=== PATIENT | female | born 1940 | race Caucasian/White ===

== ENCOUNTER → 2021-10-03 14:05 | Outpatient (BNVA) | payer MEDICARE, OTHER, SELFPAY | PROVIDERS: PCP Internal Medicine; Visit Provider Hospitalist | DX: Z01.811 Encounter for preprocedural respiratory examination (principal); M35.00 Sjogren syndrome, unspecified; R91.8 Other nonspecific abnormal finding of lung field; J98.11 Atelectasis; I25.10 Atherosclerotic heart disease of native coronary artery without angina pectoris; I38 Endocarditis, valve unspecified | CPT/HCPCS: 94618; 99202 ==

== ENCOUNTER 2021-10-15 09:53 | Outpatient (REF) | payer MEDICARE, OTHER, SELFPAY ==
--- NOTE | 2021-10-15 | PFT_ITS ---
FLOWS: FEV1 81% of predicted at 1.63 L. FVC 73% of predicted at 1.97 L. FEV1 to FVC ratio of 0.83. No bronchodilator response except in small to medium airways. LUNG VOLUMES: Total lung capacity 81% of predicted at 4.23 L. Residual volume 85% of predicted at 2.12 L. Slow vital capacity 77% of predicted at 2.12 L. Expiratory reserve volume 153% of predicted at 0.83 L. Diffusion capacity is moderately decreased. IMPRESSION: No obstructive or restrictive ventilatory defect. No bronchodilator response except in small to medium airways. Isolated diffusion capacity suggests underlying pulmonary parenchymal disease. Clinical correlation is advised. Jerman Porras MD AP/MODL / [id number]
== END 2021-10-15 09:54 | disposition home or self-care (01) ==
LOC: HO.RESP 09:53
PROVIDERS: PCP Internal Medicine; Visit Provider Hospitalist
DX: Z13.89 Encounter for screening for other disorder (principal); R06.00 Dyspnea, unspecified
CPT/HCPCS: 94060; 94727; 94729

== ENCOUNTER → 2022-02-27 14:02 | Outpatient (BNVA) | payer MEDICARE, OTHER, SELFPAY | PROVIDERS: PCP Internal Medicine; Visit Provider Hospitalist | DX: R91.8 Other nonspecific abnormal finding of lung field (principal); J98.11 Atelectasis; I38 Endocarditis, valve unspecified; I25.10 Atherosclerotic heart disease of native coronary artery without angina pectoris; M35.00 Sjogren syndrome, unspecified | CPT/HCPCS: 99212 ==

== ENCOUNTER 2022-03-24 13:50 | Inpatient (IN) | payer MEDICARE, OTHER, SELFPAY ==
--- NOTE | ~2022-03-24 | XR_ITS ---
EXAMINATION: XR CHEST CLINICAL INFORMATION: Chest pain and shortness of breath COMPARISON: None TECHNIQUE: 2 views of the chest were obtained. FINDINGS: The cardiac silhouette does not appear enlarged. There is a coronary artery stent. There is an aortic valve stent graft. Hilar and mediastinal contours are unremarkable. The lungs are clear. There is no pleural effusion or pneumothorax. There are degenerative changes of the spine. There is a loop recorder in the left anterior chest wall. XR/XR chest 2V IMPRESSION: No evidence for acute disease in the chest.
--- NOTE | ~2022-03-24 | CT_ITS ---
EXAMINATION: CT ANGIOGRAM OF THE CHEST WITH AND WITHOUT CONTRAST (CT PULMONARY ANGIOGRAM FOR PE) CLINICAL INFORMATION: Reason for Exam cp radiating to back ? PE or ? dissection COMPARISON: Chest x-ray March 2022 TECHNIQUE: Prior to contrast administration, noncontrast localization images were obtained. Subsequently, multidetector volumetric imaging was performed from the thoracic inlet to below the diaphragms following the administration of 65 mL Omnipaque 350 intravenous contrast. No contrast reaction reported Sagittal, coronal, and MIP oblique sagittal reformatted images were obtained on the CT workstation, uploaded to PACS, and reviewed. This CT examination was performed using dose optimization techniques as appropriate, variously including the following: *Automated exposure control *Adjustment of mA and/or kV according to patient size (this includes techniques or standardized protocols for targeted exams where dose is matched to indication/reason for exam; i.e. extremities or head) *Use of iterative reconstruction technique Total exam dose-length product 223 mGy-cm FINDINGS: QUALITY OF STUDY/CONTRAST BOLUS: Satisfactory. PULMONARY ARTERIES: No central or segmental pulmonary emboli. THORACIC AORTA Prominent arterial calcification noted throughout the aorta and branch vessels including the coronary arteries. LUNG: Minimal opacification of the right base likely atelectasis. There is some mosaic attenuation at the bases likely due to scattered areas of air trapping or small vessel disease. No prominent focal consolidation. PLEURA: No pleural effusion or pneumothorax. MEDIASTINUM: Aortic stent noted. Mitral annular calcification is noted.. All No pericardial effusion. No hilar or mediastinal lymphadenopathy. No evidence of septal bowing or right heart strain. CORONARY ARTERY CALCIFICATION: None visualized on this study. CHEST WALL/AXILLA: No axillary or internal mammary lymphadenopathy. OSSEOUS STRUCTURES: Spondylosis of the dorsal spine. UPPER ABDOMEN: Surgical clips noted in the gallbladder fossa No reflux of contrast into the hepatic veins to suggest elevated right heart pressures. CT/CT angio chest PE protocol IMPRESSION: No evidence for pulmonary embolism or dissection. Minimal atelectasis at the right base. Mosaic attenuation the lower lungs likely reflects air-trapping and perhaps some small vessel disease. No focal prominent area of consolidation Calcific atherosclerotic changes noted throughout. Postoperative changes with valve replacement mitral annular calcification VTE: negative
[2022-03-24 14:21] VITALS: BP 160/69; PULSE 90; RESP 20; TEMP 36.7; O2SAT 95; BMI 21.9
--- NOTE | 2022-03-24 14:21 | ED.CHESTPAIN ---
HPI - Chest Pain General Chief Complaint: Chest Pain <STEVE Birch - Last Filed: 03/24/22 14:30> Stated Complaint: chest pain <STEVE Birch - Last Filed: 03/24/22 14:30> Time Seen by Provider: 03/24/22 16:31 <STEVE Birch - Last Filed: 03/24/22 14:30> Source: patient <STEVE Vann - Last Filed: 03/24/22 20:37> Mode of arrival: ambulatory <STEVE Vann - Last Filed: 03/24/22 20:37> Limitations: no limitations <STEVE Vann - Last Filed: 03/24/22 20:37> History of Present Illness HPI narrative: 81-year-old female history of aortic stenosis s/p TAVR in Jan 2022, CAD s/p stent to RCA, mitral valve regurgitation, Sjogren's disease, essential tremor, hx exudative pleural effusion s/p thoracentesis 5 years ago presenting to the emergency department with complaints of substernal chest pain at time radiating to her back and neck worsening over the past week. Also vague complaints of associated shortness of breath with this chest pain. Patient with a complex cardiac history. No history of PE or DVT, not anticoagulated. Tells me she just has not been feeling herself although over the past week and would like to be evaluated. Denies sick contacts. She does tell me she thinks that she has the flu however unsure why. Denies nausea, vomiting abdominal pain, headache, vision changes, dizziness, weakness. <STEVE Vann - Last Filed: 03/24/22 20:37> Related Data Home Medications: Home Medications Medication Instructions Recorded Confirmed aspirin 81 mg tablet,delayed 81 mg PO DAILY 10/03/21 03/24/22 release wzklud-rljkxhzj-fhwkozy 2 cap PO TIDWM 10/03/21 03/24/22 36,000-114,000-180,000 unit capsule,delay rel (Creon) thyroid (pork) 30 mg tablet 60 mg PO BID 10/03/21 03/24/22 ([place] Thyroid) amlodipine 5 mg tablet 5 mg PO DAILY 02/27/22 03/24/22 clopidogrel 75 mg tablet 75 mg PO DAILY 02/27/22 03/24/22 furosemide 20 mg tablet 60 mg PO DAILY 02/27/22 03/24/22 spironolactone 25 mg tablet 25 mg PO DAILY 02/27/22 03/24/22 zjglfl-uigypdcx-lpxenke 2 cap PO BID PRN SNACKS 03/24/22 03/24/22 36,000-114,000-180,000 unit capsule,delay rel (Creon) Previous Rx's Medication Instructions Recorded levalbuterol tartrate 45 1 puff PO Q4H PRN shortness of 02/27/22 mcg/actuation aerosol inhaler breath or wheezing 30 days #15 (Xopenex HFA) grams <STEVE Birch - Last Filed: 03/24/22 14:30> Allergies/Adverse Reactions: Allergies Allergy/AdvReac Type Severity Reaction Status Date / Time epinephrine [Epinephrine] AdvReac Mild VERY SHAKY Verified 03/24/22 17:12 <STEVE Birch - Last Filed: 03/24/22 14:30> Review of Systems Review of Systems: Constitutional : No Weight loss, No Fever, No Chills, No Fatigue, No Malaise ENT/Mouth : No sore throat, No Rhinorrhea Eyes: No Eye Pain, No Swelling, No Redness Cardiovascular : + Chest Pain, + SOB, + Dyspnea on Exertion, No Orthopnea, No Edema, No Palpitations Respiratory : No Cough, No Sputum, No Wheezing Gastrointestinal : No Nausea, No Vomiting, No Diarrhea, No Constipation, No abdominal Pain, No Hematochezia, No Melena Genitourinary : No Dysuria, No Urinary Frequency, No Hematuria, Musculoskeletal : No joint pain, No Myalgias, No Joint Swelling Skin : No Skin Lesions, No rash Neuro : No Weakness, No Numbness, No Dizziness, No Headache Psych : No Anxiety/Panic, No Depression All other systems reviewed and are negative <STEVE Vann Last Filed: 03/24/22 20:37> Yes all other systems are reviewed and are negative <STEVE Vann Last Filed: 03/24/22 20:37> [facility] Past Medical History Attestation statement: The following information was validated with the patient. <STEVE Vann - Last Filed: 03/24/22 20:37> Source: old records reviewed and nursing notes reviewed <STEVE Vann - Last Filed: 03/24/22 20:37> Medical History: Medical History Atelectasis CAD (coronary artery disease) Pleural effusion Pulmonary nodules Sjogren's disease Valvular heart disease <STEVE Birch - Last Filed: 03/24/22 14:30> Social History Social History: Social History Alcohol intake: current Alcohol intake frequency: holidays/special occasions only Patient Tobacco Use Status: Never used Tobacco Smoked in Last 30 Days: No Use of substances other than those prescribed or required for medical reasons: No Advance Directives: Yes Advance Directives on File: No <STEVE Birch - Last Filed: 03/24/22 14:30> Physical Exam Vital Signs: Vital Signs: Last Vital Signs Temp 98.0 F 03/24/22 14:21 Pulse 99 03/24/22 18:55 Resp 18 03/24/22 18:55 BP 143/58 H 03/24/22 18:55 Pulse Ox 95 03/24/22 18:55 O2 Del Method 03/24/22 18:55 BMI result Body Mass Index 21.9 <STEVE Birch - Last Filed: 03/24/22 14:30> Vital Signs: Last Vital Signs Temp 98.0 F 03/24/22 14:21 Pulse 99 03/24/22 18:55 Resp 18 03/24/22 18:55 BP 143/58 H 03/24/22 18:55 Pulse Ox 95 03/24/22 18:55 O2 Del Method 03/24/22 18:55 BMI result Body Mass Index 21.9 Vital signs stable <STEVE Vann - Last Filed: 03/24/22 20:37> Appearance: Alert.? Oriented X3.? No acute distress.? Head: Normocephalic, atraumatic, no step-offs or deformities Eyes: Pupils equal, round and reactive to light.? Neck: Normal inspection.? Neck supple.? CVS: Normal heart rate and rhythm.? Pulses normal.? Respiratory: No respiratory distress.? Breath sounds normal.? Abdomen: Soft and nontender.? Skin: Skin warm and dry.? Normal skin color.? Normal skin turgor.? Extremities: No lower extremity edema.? No calf ttp, negative larisa bl. 5/5 strength to bilateral upper and lower extremities Neuro: Oriented X 3.? No motor deficit.? No sensory deficit. CN 2-12 intact <STEVE Vann - Last Filed: 03/24/22 20:37> Course Course Course Narrative: RME - 81 yo female with history of aortic stenosis s/p TAVR in Jan 2022, CAD s/p stent to RCA, mitral valve regurgitation, Sjogren's disease, essential tremor, hx exudative pleural effusion s/p thoracentesis 5 years ago who presents to the ER with substernal chest pain that started when she woke up, got acutely worse at lunch time. Radiates up to neck, shoulders and back. Worse with exertion, PALACIO + SOB. Started having fatigue and body aches last night. To go for EKG now, CXR, labs, concern for possible ACS. <STEVE Birch - Last Filed: 03/24/22 14:30> Reevaluation(s) Reevaluation #1: Patient with slight leukocytosis 12.8, I do not suspect infection. Chemistry with no acute electrolyte abnormalities that require intervention. Patient's BNP is noted to be markedly elevated concerning for possible CHF however on exam patient does not appear to be in acute fluid overload state imaging is not showing signs of CHF. Patient's troponin also elevated 74.4 thus raising suspicion for possible ACS repeat troponin will be obtained will give 325 of enteric-coated aspirin as well as morphine. Will hold on nitrates at this time. EKG showing normal sinus rhythm with left axis deviation and left ventricular hypertrophy with repolarization abnormality there slight changes noted in the septal leads that could be concerning for septal infarct will wait for 2nd troponin. Patient hemodynamically stable at this time. I did add on a D-dimer to patient's labs to ensure this is not a PE. Viral panel pending. <STEVE Vann - Last Filed: 03/24/22 20:37> Time: 16:57 <STEVE Vann - Last Filed: 03/24/22 20:37> Reevaluation #2: Chest CT with no evidence of PE or dissection. Minimal atelectasis of the lung base. Mosaic attenuation of the lower lungs likely reflecting air trapping and perhaps some small vessel disease. Calcific arthrosclerotic changes throughout. VT negative. Second troponin elevated at 91.6 however not meeting delta criteria. Will repeat a 3rd troponin. Will keep patient for observation. <STEVE Vann - Last Filed: 03/24/22 20:37> Time: 20:02 <STEVE Vann - Last Filed: 03/24/22 20:37> Reevaluation #3: Will admit patient to hospitalist for further intervention and treatment. <STEVE Vann - Last Filed: 03/24/22 20:37> Time: 20:35 <STEVE Vann - Last Filed: 03/24/22 20:37> Medications Administered Discontinued Medications Generic Name Dose Route Start Last Admin Trade Name Freq PRN Reason Stop Dose Admin Aspirin 325 mg 03/24/22 16:54 03/24/22 17:13 Aspirin Enteric Coated 325 Mg Tablet.Dr LEYVA 03/24/22 16:55 325 mg ONCE ONE Administration Iohexol 100 ml 03/24/22 17:44 03/24/22 17:44 Iohexol 350 Mg/Ml 100 Ml Infus..Btl IV 03/24/22 17:45 65 ml ONCE ONE Administration Morphine Sulfate 4 mg 03/24/22 16:54 03/24/22 17:12 Morphine Sulfate 4 Mg/Ml Cartridge IVPUSH 03/24/22 16:55 Not Given ONCE ONE Protocol <STEVE Birch - Last Filed: 03/24/22 14:30> Medications Administered Discontinued Medications Generic Name Dose Route Start Last Admin Trade Name Freq PRN Reason Stop Dose Admin Aspirin 325 mg 03/24/22 16:54 03/24/22 17:13 Aspirin Enteric Coated 325 Mg Tablet.Dr LEYVA 03/24/22 16:55 325 mg ONCE ONE Administration Iohexol 100 ml 03/24/22 17:44 03/24/22 17:44 Iohexol 350 Mg/Ml 100 Ml Infus..Btl IV 03/24/22 17:45 65 ml ONCE ONE Administration Morphine Sulfate 4 mg 03/24/22 16:54 03/24/22 17:12 Morphine Sulfate 4 Mg/Ml Cartridge IVPUSH 03/24/22 16:55 Not Given ONCE ONE Protocol <STEVE Vann - Last Filed: 03/24/22 20:37> Medical Decision Making Medical Decision Making [facility] Narrative: 1630 81-year-old female presents with chest pain, shortness of breath, body aches and pains x1 week Physical exam benign other than mitral valve regurg however this is normal for patient Concerns for possible viral syndrome versus PE versus ACS. Other differentials include CHF, pneumonia, pleural effusions. No signs of acute respiratory distress on exam Plan at this time basic labs, imaging, D-dimer, troponin, BNP will obtain viral test. <STEVE Vann - Last Filed: 03/24/22 20:37> Differential Diagnosis Differential Diagnoses: The differential diagnosis associated with the presentation includes <STEVE Vann - Last Filed: 03/24/22 20:37> Concerns for possible viral syndrome versus PE versus ACS. Other differentials include CHF, pneumonia, pleural effusions. No signs of acute respiratory distress on exam <STEVE Vann - Last Filed: 03/24/22 20:37> Admission/Observation Consideration of admission/observation: Escalation of care including admission/observation considered <STEVE Vann Last Filed: 03/24/22 20:37> Lab Data [facility] Lab Attestation statement: I reviewed the patient's lab results. <STEVE Vann - Last Filed: 03/24/22 20:37> Result Diagrams: 03/24/22 15:53 03/24/22 15:54 <STEVE Birhc - Last Filed: 03/24/22 14:30> Labs: Lab Results 03/24/22 03/24/22 03/24/22 Range/Units 15:53 15:54 15:54 WBC 12.8 H (4.8-10.8) X10*3/uL RBC 4.56 (4.20-5.50) X10*6/uL Hgb 13.3 (12.0-16.0) g/dl Hct 39.3 (37.0-47.0) % MCV 86.2 (80.0-98.0) fL MCH 29.2 (27.0-33.0) pg MCHC 33.8 (31.0-35.0) g/dl RDW 13.2 (11.0-16.0) % Plt Count 268 (160-400) X10*3/uL MPV 10.2 (9.4-12.3) fL Immature Gran % (Auto) 0.5 H (0.0-0.4) % Neut % (Auto) 79.9 H (45-73) % Lymph % (Auto) 8.5 L (20-40) % [place] % (Auto) 8.6 (2-11) % Eos % (Auto) 2.0 (0-4) % Baso % (Auto) 0.5 (0-2) % Lymph # (Auto) 1.1 L (1.2-4.9) X10*3/uL [place] # (Auto) 1.1 (0.1-1.2) X10*3/uL Eos # (Auto) 0.3 (0.0-0.4) X10*3/uL Baso # (Auto) 0.1 (0.0-0.2) X10*3/uL Abs Immat Gran (auto) 0.07 H (0.00-0.03) X10*3/uL Absolute Neuts (auto) 10.2 H (2.0-8.3) x10*3/uL Absolute Nucleated RBC 0.000 (0.0-0.012) X10*3/uL Nucleated RBC % (auto) 0.0 (0.0-0.2) /100WBC PT (10.0-13.1) SEC INR (0.9-1.1) APTT (26.0-36.4) SEC D-Dimer High Sensitivty NG/ML Sodium 137 (135-145) mmol/L Potassium 4.7 (3.3-5.1) mmol/L Chloride 98 (96-108) mmol/L Carbon Dioxide 27 (22-29) mmol/L Anion Gap 17 (12-20) BUN 31 H (9-16) mg/dL Creatinine 1.24 (0.5-1.4) mg/dL Estim Creat Clear Calc 30.7 Estimated GFR 42 Random Glucose 137 H (60-115) mg/dL Calcium 9.9 (8.4-10.2) mg/dL Magnesium 2.0 (1.6-2.6) mg/dL Total Bilirubin 0.7 (0.0-1.0) mg/dL Direct Bilirubin 0.2 (0.0-0.5) mg/dL AST 18 (5-31) U/L ALT 9 (0-31) U/L Alkaline Phosphatase 106 (39-117) U/L Troponin I High Sens 74.4 H* (<3.5-17.0) ng/L B-Natriuretic Peptide (<100) pg/mL Total Protein 7.3 (6.5-8.0) g/dL Albumin 4.3 (3.5-5.0) g/dL COVID-19 (BILL) (Negative) COVID-19 Clin Com Influenza Type A (MICHELE) (Negative) Influenza Type B (MICHELE) (Negative) Influenza A & B Note 03/24/22 03/24/22 03/24/22 Range/Units 15:54 15:54 15:54 WBC (4.8-10.8) X10*3/uL RBC (4.20-5.50) X10*6/uL Hgb (12.0-16.0) g/dl Hct (37.0-47.0) % MCV (80.0-98.0) fL MCH (27.0-33.0) pg MCHC (31.0-35.0) g/dl RDW (11.0-16.0) % Plt Count (160-400) X10*3/uL MPV (9.4-12.3) fL Immature Gran % (Auto) (0.0-0.4) % Neut % (Auto) (45-73) % Lymph % (Auto) (20-40) % [place] % (Auto) (2-11) % Eos % (Auto) (0-4) % Baso % (Auto) (0-2) % Lymph # (Auto) (1.2-4.9) X10*3/uL [place] # (Auto) (0.1-1.2) X10*3/uL Eos # (Auto) (0.0-0.4) X10*3/uL Baso # (Auto) (0.0-0.2) X10*3/uL Abs Immat Gran (auto) (0.00-0.03) X10*3/uL Absolute Neuts (auto) (2.0-8.3) x10*3/uL Absolute Nucleated RBC (0.0-0.012) X10*3/uL Nucleated RBC % (auto) (0.0-0.2) /100WBC PT 12.1 (10.0-13.1) SEC INR 1.1 (0.9-1.1) APTT 36.0 (26.0-36.4) SEC D-Dimer High Sensitivty 730 NG/ML Sodium (135-145) mmol/L Potassium (3.3-5.1) mmol/L Chloride (96-108) mmol/L Carbon Dioxide (22-29) mmol/L Anion Gap (12-20) BUN (9-16) mg/dL Creatinine (0.5-1.4) mg/dL Estim Creat Clear Calc Estimated GFR Random Glucose (60-115) mg/dL Calcium (8.4-10.2) mg/dL Magnesium (1.6-2.6) mg/dL Total Bilirubin (0.0-1.0) mg/dL Direct Bilirubin (0.0-0.5) mg/dL AST (5-31) U/L ALT (0-31) U/L Alkaline Phosphatase (39-117) U/L Troponin I High Sens (<3.5-17.0) ng/L B-Natriuretic Peptide 942 H (<100) pg/mL Total Protein (6.5-8.0) g/dL Albumin (3.5-5.0) g/dL COVID-19 (BILL) Negative (Negative) COVID-19 Clin Com See Note Influenza Type A (MICHEEL) (Negative) Influenza Type B (MICHELE) (Negative) Influenza A & B Note 03/24/22 03/24/22 Range/Units 16:49 19:06 WBC (4.8-10.8) X10*3/uL RBC (4.20-5.50) X10*6/uL Hgb (12.0-16.0) g/dl Hct (37.0-47.0) % MCV (80.0-98.0) fL MCH (27.0-33.0) pg MCHC (31.0-35.0) g/dl RDW (11.0-16.0) % Plt Count (160-400) X10*3/uL MPV (9.4-12.3) fL Immature Gran % (Auto) (0.0-0.4) % Neut % (Auto) (45-73) % Lymph % (Auto) (20-40) % [place] % (Auto) (2-11) % Eos % (Auto) (0-4) % Baso % (Auto) (0-2) % Lymph # (Auto) (1.2-4.9) X10*3/uL [place] # (Auto) (0.1-1.2) X10*3/uL Eos # (Auto) (0.0-0.4) X10*3/uL Baso # (Auto) (0.0-0.2) X10*3/uL Abs Immat Gran (auto) (0.00-0.03) X10*3/uL Absolute Neuts (auto) (2.0-8.3) x10*3/uL Absolute Nucleated RBC (0.0-0.012) X10*3/uL Nucleated RBC % (auto) (0.0-0.2) /100WBC PT (10.0-13.1) SEC INR (0.9-1.1) APTT (26.0-36.4) SEC D-Dimer High Sensitivty NG/ML Sodium (135-145) mmol/L Potassium (3.3-5.1) mmol/L Chloride (96-108) mmol/L Carbon Dioxide (22-29) mmol/L Anion Gap (12-20) BUN (9-16) mg/dL Creatinine (0.5-1.4) mg/dL Estim Creat Clear Calc Estimated GFR Random Glucose (60-115) mg/dL Calcium (8.4-10.2) mg/dL Magnesium (1.6-2.6) mg/dL Total Bilirubin (0.0-1.0) mg/dL Direct Bilirubin (0.0-0.5) mg/dL AST (5-31) U/L ALT (0-31) U/L Alkaline Phosphatase (39-117) U/L Troponin I High Sens 91.6 H* (<3.5-17.0) ng/L B-Natriuretic Peptide (<100) pg/mL Total Protein (6.5-8.0) g/dL Albumin (3.5-5.0) g/dL COVID-19 (BILL) (Negative) COVID-19 Clin Com Influenza Type A (MICHELE) Negative (Negative) Influenza Type B (MICHELE) Negative (Negative) Influenza A & B Note See Note <STEVE Birch - Last Filed: 03/24/22 14:30> Lab Results 03/24/22 03/24/22 03/24/22 Range/Units 15:53 15:54 15:54 WBC 12.8 H (4.8-10.8) X10*3/uL RBC 4.56 (4.20-5.50) X10*6/uL Hgb 13.3 (12.0-16.0) g/dl Hct 39.3 (37.0-47.0) % MCV 86.2 (80.0-98.0) fL MCH 29.2 (27.0-33.0) pg MCHC 33.8 (31.0-35.0) g/dl RDW 13.2 (11.0-16.0) % Plt Count 268 (160-400) X10*3/uL MPV 10.2 (9.4-12.3) fL Immature Gran % (Auto) 0.5 H (0.0-0.4) % Neut % (Auto) 79.9 H (45-73) % Lymph % (Auto) 8.5 L (20-40) % [place] % (Auto) 8.6 (2-11) % Eos % (Auto) 2.0 (0-4) % Baso % (Auto) 0.5 (0-2) % Lymph # (Auto) 1.1 L (1.2-4.9) X10*3/uL [place] # (Auto) 1.1 (0.1-1.2) X10*3/uL Eos # (Auto) 0.3 (0.0-0.4) X10*3/uL Baso # (Auto) 0.1 (0.0-0.2) X10*3/uL Abs Immat Gran (auto) 0.07 H (0.00-0.03) X10*3/uL Absolute Neuts (auto) 10.2 H (2.0-8.3) x10*3/uL Absolute Nucleated RBC 0.000 (0.0-0.012) X10*3/uL Nucleated RBC % (auto) 0.0 (0.0-0.2) /100WBC PT (10.0-13.1) SEC INR (0.9-1.1) APTT (26.0-36.4) SEC D-Dimer High Sensitivty NG/ML Sodium 137 (135-145) mmol/L Potassium 4.7 (3.3-5.1) mmol/L Chloride 98 (96-108) mmol/L Carbon Dioxide 27 (22-29) mmol/L Anion Gap 17 (12-20) BUN 31 H (9-16) mg/dL Creatinine 1.24 (0.5-1.4) mg/dL Estim Creat Clear Calc 30.7 Estimated GFR 42 Random Glucose 137 H (60-115) mg/dL Calcium 9.9 (8.4-10.2) mg/dL Magnesium 2.0 (1.6-2.6) mg/dL Total Bilirubin 0.7 (0.0-1.0) mg/dL Direct Bilirubin 0.2 (0.0-0.5) mg/dL AST 18 (5-31) U/L ALT 9 (0-31) U/L Alkaline Phosphatase 106 (39-117) U/L Troponin I High Sens 74.4 H* (<3.5-17.0) ng/L B-Natriuretic Peptide (<100) pg/mL Total Protein 7.3 (6.5-8.0) g/dL Albumin 4.3 (3.5-5.0) g/dL COVID-19 (BILL) (Negative) COVID-19 Clin Com Influenza Type A (MICHELE) (Negative) Influenza Type B (MICHELE) (Negative) Influenza A & B Note 03/24/22 03/24/22 03/24/22 Range/Units 15:54 15:54 15:54 WBC (4.8-10.8) X10*3/uL RBC (4.20-5.50) X10*6/uL Hgb (12.0-16.0) g/dl Hct (37.0-47.0) % MCV (80.0-98.0) fL MCH (27.0-33.0) pg MCHC (31.0-35.0) g/dl RDW (11.0-16.0) % Plt Count (160-400) X10*3/uL MPV (9.4-12.3) fL Immature Gran % (Auto) (0.0-0.4) % Neut % (Auto) (45-73) % Lymph % (Auto) (20-40) % [place] % (Auto) (2-11) % Eos % (Auto) (0-4) % Baso % (Auto) (0-2) % Lymph # (Auto) (1.2-4.9) X10*3/uL [place] # (Auto) (0.1-1.2) X10*3/uL Eos # (Auto) (0.0-0.4) X10*3/uL Baso # (Auto) (0.0-0.2) X10*3/uL Abs Immat Gran (auto) (0.00-0.03) X10*3/uL Absolute Neuts (auto) (2.0-8.3) x10*3/uL Absolute Nucleated RBC (0.0-0.012) X10*3/uL Nucleated RBC % (auto) (0.0-0.2) /100WBC PT 12.1 (10.0-13.1) SEC INR 1.1 (0.9-1.1) APTT 36.0 (26.0-36.4) SEC D-Dimer High Sensitivty 730 NG/ML Sodium (135-145) mmol/L Potassium (3.3-5.1) mmol/L Chloride (96-108) mmol/L Carbon Dioxide (22-29) mmol/L Anion Gap (12-20) BUN (9-16) mg/dL Creatinine (0.5-1.4) mg/dL Estim Creat Clear Calc Estimated GFR Random Glucose (60-115) mg/dL Calcium (8.4-10.2) mg/dL Magnesium (1.6-2.6) mg/dL Total Bilirubin (0.0-1.0) mg/dL Direct Bilirubin (0.0-0.5) mg/dL AST (5-31) U/L ALT (0-31) U/L Alkaline Phosphatase (39-117) U/L Troponin I High Sens (<3.5-17.0) ng/L B-Natriuretic Peptide 942 H (<100) pg/mL Total Protein (6.5-8.0) g/dL Albumin (3.5-5.0) g/dL COVID-19 (BILL) Negative (Negative) COVID-19 Clin Com See Note Influenza Type A (MICHELE) (Negative) Influenza Type B (MICHELE) (Negative) Influenza A & B Note 03/24/22 03/24/22 Range/Units 16:49 19:06 WBC (4.8-10.8) X10*3/uL RBC (4.20-5.50) X10*6/uL Hgb (12.0-16.0) g/dl Hct (37.0-47.0) % MCV (80.0-98.0) fL MCH (27.0-33.0) pg MCHC (31.0-35.0) g/dl RDW (11.0-16.0) % Plt Count (160-400) X10*3/uL MPV (9.4-12.3) fL Immature Gran % (Auto) (0.0-0.4) % Neut % (Auto) (45-73) % Lymph % (Auto) (20-40) % [place] % (Auto) (2-11) % Eos % (Auto) (0-4) % Baso % (Auto) (0-2) % Lymph # (Auto) (1.2-4.9) X10*3/uL [place] # (Auto) (0.1-1.2) X10*3/uL Eos # (Auto) (0.0-0.4) X10*3/uL Baso # (Auto) (0.0-0.2) X10*3/uL Abs Immat Gran (auto) (0.00-0.03) X10*3/uL Absolute Neuts (auto) (2.0-8.3) x10*3/uL Absolute Nucleated RBC (0.0-0.012) X10*3/uL Nucleated RBC % (auto) (0.0-0.2) /100WBC PT (10.0-13.1) SEC INR (0.9-1.1) APTT (26.0-36.4) SEC D-Dimer High Sensitivty NG/ML Sodium (135-145) mmol/L Potassium (3.3-5.1) mmol/L Chloride (96-108) mmol/L Carbon Dioxide (22-29) mmol/L Anion Gap (12-20) BUN (9-16) mg/dL Creatinine (0.5-1.4) mg/dL Estim Creat Clear Calc Estimated GFR Random Glucose (60-115) mg/dL Calcium (8.4-10.2) mg/dL Magnesium (1.6-2.6) mg/dL Total Bilirubin (0.0-1.0) mg/dL Direct Bilirubin (0.0-0.5) mg/dL AST (5-31) U/L ALT (0-31) U/L Alkaline Phosphatase (39-117) U/L Troponin I High Sens 91.6 H* (<3.5-17.0) ng/L B-Natriuretic Peptide (<100) pg/mL Total Protein (6.5-8.0) g/dL Albumin (3.5-5.0) g/dL COVID-19 (BILL) (Negative) COVID-19 Clin Com Influenza Type A (MICHELE) Negative (Negative) Influenza Type B (MICHELE) Negative (Negative) Influenza A & B Note See Note <STEVE Vann - Last Filed: 03/24/22 20:37> Independent Interpretation I performed an independent interpretation of an: Plain X-Ray <STEVE Vann - Last Filed: 03/24/22 20:37> Radiology Impression Discussion of test interpretation with radiology: I have reviewed the radiologist's reading. <STEVE Vann - Last Filed: 03/24/22 20:37> Chronic Conditions Patient?s care impacted by: Hypertension <STVEE Vann - Last Filed: 03/24/22 20:37> Core Measures AMI core measures followed: Yes <STEVE Vann - Last Filed: 03/24/22 20:37> Measure exclusions: not indicated <STEVE Vann - Last Filed: 03/24/22 20:37> Critical Care Time Critical Care Time Critical Care Time: No <STEVE Vann - Last Filed: 03/24/22 20:37> Discharge Plan Discharge Clinical Impression: Chest pain, Shortness of breath <STEVE Birch - Last Filed: 03/24/22 14:30> Patient Disposition: Admitted As Inpatient <STEVE Birch - Last Filed: 03/24/22 14:30> Prescriptions: No Action Creon 36,000-114,000- 180,000 unit capsule,delayed release(DR/EC) 2 cap PO BID PRN (Reason: SNACKS) thyroid (pork) [[place] Thyroid] 30 mg tablet 60 mg PO BID Creon 36,000-114,000- 180,000 unit capsule,delayed release(DR/EC) 2 cap PO TIDWM aspirin 81 mg tablet,delayed release (DR/EC) 81 mg PO DAILY furosemide 20 mg tablet 60 mg PO DAILY amlodipine 5 mg tablet 5 mg PO DAILY clopidogrel 75 mg tablet 75 mg PO DAILY spironolactone 25 mg tablet 25 mg PO DAILY levalbuterol tartrate [Xopenex HFA] 45 mcg/actuation HFA aerosol inhaler 1 puff PO Q4H PRN (Reason: shortness of breath or wheezing) 30 Days Qty: 15 3RF <STEVE Birch - Last Filed: 03/24/22 14:30>
--- NOTE | 2022-03-24 14:24 | ECG_ITS ---
Test Reason : chest pain Blood Pressure : / mmHG Vent. Rate : 091 BPM Atrial Rate : 091 BPM P-R Int : 142 ms QRS Dur : 098 ms QT Int : 370 ms P-R-T Axes : 047 -40 067 degrees QTc Int : 455 ms Normal sinus rhythm Left axis deviation Left ventricular hypertrophy with repolarization abnormality ( R in aVL , James product ) Cannot rule out Septal infarct , age undetermined Abnormal ECG When compared with ECG of 19-MAR-2007 14:45, Minimal criteria for Septal infarct are now Present Referred By: Sheree Smith Electronically Signed By:Dev Esquivel
[2022-03-24 16:00] LABS: MANUAL DIFF FLAG NO
[2022-03-24 16:01] LABS: Basophils Absolute Auto 0.1 X10*3/uL (0.0-0.2); Basophils Percent Auto 0.5 % (0-2); Eosinophils Absolute Auto 0.3 X10*3/uL (0.0-0.4); Hematocrit 39.3 % (37.0-47.0); Hemoglobin 13.3 g/dl (12.0-16.0); Imm Gran Abs Auto 0.07 X10*3/uL (0.00-0.03); Imm Gran Pct Auto 0.5 % (0.0-0.4); Lymphocytes Absolute Auto 1.1 X10*3/uL (1.2-4.9); Lymphocytes Percent Auto 8.5 % (20-40); Mean Corpuscular HGB Conc 33.8 g/dl (31.0-35.0); Mean Corpuscular Hemoglobin 29.2 pg (27.0-33.0); Mean Corpuscular Volume 86.2 fL (80.0-98.0); Mean Platelet Volume 10.2 fL (9.4-12.3); Monocytes Absolute Auto 1.1 X10*3/uL (0.1-1.2); Monocytes Percent Auto 8.6 % (2-11); Neutrophils Absolute Auto 10.2 x10*3/uL (2.0-8.3); Neutrophils Percent Auto 79.9 % (45-73); Platelet Count 268 X10*3/uL (160-400); Red Blood Count 4.56 X10*6/uL (4.20-5.50); Red Cell Distribution Width 13.2 % (11.0-16.0); White Blood Count 12.8 X10*3/uL (4.8-10.8)
[2022-03-24 16:10] LABS: INTERNATIONAL NORM RATIO 1.1 (0.9-1.1); Prothrombin Time 12.1 SEC (10.0-13.1)
[2022-03-24 16:17] LABS: COVID-19 Test Negative (Negative); IDNOW Serial# 16C4AD1C
[2022-03-24 16:29] LABS: B Type Natriuretic Peptide 942 pg/mL (<100)
[2022-03-24 16:50] LABS: Troponin-I High Sensitivity 74.4 ng/L (<3.5-17.0)
[2022-03-24 16:51] VITALS: BP 145/61; PULSE 96; RESP 22; O2SAT 95
[2022-03-24 16:54] LABS: Alanine Aminotransferase 9 U/L (0-31); Albumin Level 4.3 g/dL (3.5-5.0); Alkaline Phosphatase 106 U/L (39-117); Anion Gap 17 (12-20); Aspartate Amino Transferase 18 U/L (5-31); Bilirubin Direct 0.2 mg/dL (0.0-0.5); Bilirubin Total 0.7 mg/dL (0.0-1.0); Blood Urea Nitrogen 31 mg/dL (9-16); Calcium 9.9 mg/dL (8.4-10.2); Carbon Dioxide 27 mmol/L (22-29); Chloride 98 mmol/L (96-108); Creatinine Clr Calc Pharmacy 30.7; Estimated Glomerular Filt Rate 42; Glucose Random 137 mg/dL (60-115); Potassium 4.7 mmol/L (3.3-5.1); Sodium 137 mmol/L (135-145); Total Protein 7.3 g/dL (6.5-8.0)
[2022-03-24 17:09] LABS: D Dimer High Sensitivity 730 NG/ML
[2022-03-24 17:12] LABS: IDNOW Serial# BCCEAD1C; Influenza A Negative (Negative); Influenza B2 Negative (Negative)
[2022-03-24] MEDS: Aspirin Enteric Coated 325 MG TABLET.DR PO (17:13)
[2022-03-24] MEDS: iohexoL 350 MG/ML 100 ML INFUS..BTL IV (17:44)
[2022-03-24 18:55] VITALS: BP 143/58; PULSE 99; RESP 18; O2SAT 95
[2022-03-24 19:37] LABS: Troponin-I High Sensitivity 91.6 ng/L (<3.5-17.0)
--- NOTE | 2022-03-24 20:32 | PHA.MEDREC ---
Addendum entered by Violetta Vines [facility] 03/24/22 22:22: UPON FURTHER RESEARCH, PT ONLY TAKES 1 CREON WITH EACH MEAL AND DOESNT TAKE ANY WITH SNACKS. SHE ALSO TAKES 2 TAB BID OF THYROID ON Thu AND THU BUT ONLY 2 TABS IN THE AM AND 1 TAB IN THE PM ON [facility] Original Note: Pharmacy Consult ? Medication Reconciliation Pharmacy has completed the medication reconciliation.
--- NOTE | 2022-03-24 21:07 | PM.IMHP ---
History of Present Illness Date of Service: 03/24/22 Attending physician on admission: Boris Cardona Chief Complaint: chest pain 81-year-old female with history of coronary artery disease s/p PCI of the RCA with 2 stents placed, history of exudate of pleural effusion, pulmonary nodules, Kisha's disease, Sjogren syndrome, Raynaud's, s/p bioprosthetic TAVR, mitral valve regurgitation scheduled for replacement following with Dr. Vitale at [facility], hx atrial fibrillation with cardiac ablation 12/31 not on anticoagulation, essential tremor, and EPI presented to the ED earlier today accompanied by her son and daughter for evaluation of chest pain. The patient states for the last week, she has had chills, myalgias, generalized weakness, fatigue, and dyspnea on exertion. States initially she also had nausea but no vomiting. States yesterday developed retrosternal chest pressure radiating to the back that has been constant rated as a 6/10. Present at rest and with exertion, worsening. On arrival VSS. Mild leukocytosis 12.8. Renal function, electrolytes baseline, consistent with CKD stage 3. Initial troponin 74.4, repeat 91.6. BNP 942. Negative for COVID-19 and influenza. Chest x-ray negative. CTA chest negative for any PE or dissection. There is also mosaic attenuation of the lower lungs likely reflecting air trapping and perhaps small-vessel disease but no focal prominent area of consolidation. EKG showing NSR, rate 91 with LVH and repolarization present. In the ED, patient given 324 mg aspirin, offered morphine but patient declined. Review of Systems Review of Systems: Yes all other systems are reviewed and are negative [facility] Medical History (Updated 03/24/22 @ 21:30 by STEVE Valera) Atelectasis CAD (coronary artery disease) Essential tremor Kisha's thyroiditis History of atrial fibrillation Mitral valve regurgitation Pleural effusion Pulmonary nodules Sjogren's disease Valvular heart disease Surgical History S/P TAVR (transcatheter aortic valve replacement) Social History Alcohol intake: current Alcohol intake frequency: holidays/special occasions only Patient Tobacco Use Status: Never used Tobacco Smoked in Last 30 Days: No Use of substances other than those prescribed or required for medical reasons: No Advance Directives: Yes Advance Directives on File: No Meds Allergies Allergy/AdvReac Type Severity Reaction Status Date / Time epinephrine [Epinephrine] AdvReac Mild VERY SHAKY Verified 03/24/22 17:12 Active Medications: Current Medications Acetaminophen (Acetaminophen 325 Mg Tablet) 650 mg PO Q6H PRN PRN Reason: Pain, Mild (Pain Scale 1-3) Heparin Sodium/Sodium Chloride (Heparin Sodium,Porcine/1/2ns) 25,000 unit in 250 mls @ 0 mls/hr IVCONT .Q0M ZARA; Protocol Ondansetron HCl (Ondansetron Hcl 4 Mg/2 Ml Vial) 4 mg IVPUSH Q8H PRN PRN Reason: Nausea and Vomiting Pharmacy Consult (Consult Rx Perform Med Rec) 1 each MISCELLANE ONCE PRN PRN Reason: Consult order Sodium Chloride (0.9 % Sodium Chloride Flush 3 Ml Syringe) 3 ml IVFLUSH QSHIFT [facility] Home Medications Medication Instructions Recorded Confirmed Last Taken Type aspirin 81 mg tablet,delayed 81 mg PO DAILY 10/03/21 03/24/22 Unknown History release uomiik-ynguxnmy-khxlsrs 2 cap PO TIDWM 10/03/21 03/24/22 Unknown History 36,000-114,000-180,000 unit capsule,delay rel (Creon) thyroid (pork) 30 mg tablet 60 mg PO BID 10/03/21 03/24/22 Unknown History ([facility] Thyroid) amlodipine 5 mg tablet 5 mg PO DAILY 02/27/22 03/24/22 Unknown History clopidogrel 75 mg tablet 75 mg PO DAILY 02/27/22 03/24/22 Unknown History furosemide 20 mg tablet 60 mg PO DAILY 02/27/22 03/24/22 Unknown History spironolactone 25 mg tablet 25 mg PO DAILY 02/27/22 03/24/22 Unknown History lvbnhg-svgdpyzu-zahqgqg 2 cap PO BID PRN SNACKS 03/24/22 03/24/22 Unknown History 36,000-114,000-180,000 unit capsule,delay rel (Creon) Physical Exam Vital Signs and Narrative: Vital Signs: Last Vital Signs Temp 98.0 F 03/24/22 14:21 Pulse 99 03/24/22 18:55 Resp 18 03/24/22 18:55 BP 143/58 H 03/24/22 18:55 Pulse Ox 95 03/24/22 18:55 O2 Del Method 03/24/22 18:55 BMI result Body Mass Index 21.9 Constitutional - Awake and Alert, No apparent distress Eyes - PERRLA, EOMI Cardiovascular - S1S2, RRR, No edema Respiratory - Normal lung expansion, Normal respiratory effort, No respiratory distress, CTA bilaterally Gastrointestinal - NT / ND; +BS; No rebound or guarding Extremities - no calf tenderness bilaterally, no swelling Skin - Warm/Dry Neurological - Alert & oriented x3, CN II-XII in tact, / strength BUE and BLE Psychological - Appropriate affect Results Labs 03/24/22 15:53 03/24/22 15:54 Labs: Laboratory Results - last 24 hr 03/24/22 03/24/22 03/24/22 15:53 15:54 15:54 MCV 86.2 MCH 29.2 MCHC 33.8 RDW 13.2 Plt Count 268 MPV 10.2 Immature Gran % (Auto) 0.5 H Neut % (Auto) 79.9 H Lymph % (Auto) 8.5 L [place] % (Auto) 8.6 Eos % (Auto) 2.0 Baso % (Auto) 0.5 Lymph # (Auto) 1.1 L [place] # (Auto) 1.1 Eos # (Auto) 0.3 Baso # (Auto) 0.1 Abs Immat Gran (auto) 0.07 H Absolute Neuts (auto) 10.2 H Absolute Nucleated RBC 0.000 Nucleated RBC % (auto) 0.0 PT INR APTT D-Dimer High Sensitivty Anion Gap 17 Estim Creat Clear Calc 30.7 Estimated GFR 42 Random Glucose 137 H Calcium 9.9 Magnesium 2.0 Total Bilirubin 0.7 Direct Bilirubin 0.2 AST 18 ALT 9 Alkaline Phosphatase 106 Troponin I High Sens 74.4 H* B-Natriuretic Peptide Total Protein 7.3 Albumin 4.3 COVID-19 (BILL) COVID-19 Clin Com Influenza Type A (MICHELE) Influenza Type B (MICHELE) Influenza A & B Note 03/24/22 03/24/22 03/24/22 15:54 15:54 15:54 MCV MCH MCHC RDW Plt Count MPV Immature Gran % (Auto) Neut % (Auto) Lymph % (Auto) [place] % (Auto) Eos % (Auto) Baso % (Auto) Lymph # (Auto) [place] # (Auto) Eos # (Auto) Baso # (Auto) Abs Immat Gran (auto) Absolute Neuts (auto) Absolute Nucleated RBC Nucleated RBC % (auto) PT 12.1 INR 1.1 APTT 36.0 D-Dimer High Sensitivty 730 Anion Gap Estim Creat Clear Calc Estimated GFR Random Glucose Calcium Magnesium Total Bilirubin Direct Bilirubin AST ALT Alkaline Phosphatase Troponin I High Sens B-Natriuretic Peptide 942 H Total Protein Albumin COVID-19 (BILL) Negative COVID-19 Clin Com See Note Influenza Type A (MICHELE) Influenza Type B (MICHELE) Influenza A & B Note 03/24/22 03/24/22 16:49 19:06 MCV MCH MCHC RDW Plt Count MPV Immature Gran % (Auto) Neut % (Auto) Lymph % (Auto) [place] % (Auto) Eos % (Auto) Baso % (Auto) Lymph # (Auto) [place] # (Auto) Eos # (Auto) Baso # (Auto) Abs Immat Gran (auto) Absolute Neuts (auto) Absolute Nucleated RBC Nucleated RBC % (auto) PT INR APTT D-Dimer High Sensitivty Anion Gap Estim Creat Clear Calc Estimated GFR Random Glucose Calcium Magnesium Total Bilirubin Direct Bilirubin AST ALT Alkaline Phosphatase Troponin I High Sens 91.6 H* B-Natriuretic Peptide Total Protein Albumin COVID-19 (BILL) COVID-19 Clin Com Influenza Type A (MICHELE) Negative Influenza Type B (MICHELE) Negative Influenza A & B Note See Note Imaging Radiologist's Impressions: Impressions Chest X-Ray 03/24/22 14:54 IMPRESSION: No evidence for acute disease in the chest. Chest CTA 03/24/22 17:47 IMPRESSION: No evidence for pulmonary embolism or dissection. Minimal atelectasis at the right base. Mosaic attenuation the lower lungs likely reflects air-trapping and perhaps some small vessel disease. No focal prominent area of consolidation Calcific atherosclerotic changes noted throughout. Postoperative changes with valve replacement mitral annular calcification VTE: negative Assessment and Plan (1) Unstable angina: Status: Acute Plan 81-year-old female with history of coronary artery disease s/p PCI of the RCA with 2 stents placed, history of exudate of pleural effusion, pulmonary nodules, Kisha's disease, Sjogren syndrome, Raynaud's, s/p bioprosthetic TAVR, mitral valve regurgitation scheduled for replacement following with Dr. Vitale at [facility] Card[facility], hx atrial fibrillation with cardiac ablation 12/31 not on anticoagulation, essential tremor, and EPI admitted for unstable angina. #Unstable angina -EKG showing NSR, no evidence acute ischemia with PIERO or depressions. Trops flat. Repeat trop pending -Chest pain history consistent with ACS -Initiate therapeutic Lovenox 60mg daily (cc 30. If improved am, consider changing dose to q12h) -echocardiogram ordered -appreciate cardiology input -admit to telemetry -cardiac diet -obtain records from [facility] cardiology -continue asa, plavix #Valvular heart disease -s/p bioprosthetic TAVR and mitral valve regurgitation -obtain records from [facility] -echo pending #Kisha's -continue home meds #EPI -continue pancreatic enzymes #History afib s/p cardiac ablation 12/31- rate controlled -not on anticoagulation #Heart failure, EF unknown -without acute exacerbation -Continue lasix -echo pending as above #CKD stage 3 -renal function baseline. DVT prophaylxis- therapeutic Lovenox Full code Patient requires inpatient stay of at least 2 midnights for management of unstable angina on therapeutic Lovenox requiring close monitoring and expert consultation cannot be achieved at lower level of care Time Spent With Patient Time: Total time managing care of this patient today ____ minutes. Quality Stroke Does the patient have a stroke diagnosis?: No VTE Prior VTE?: No VTE Risk Level:: Medical - moderate - high VTE Device Contraindication: Treatment Not Indicated VTE Drug Contraindication: N/A - Med Ordered
[2022-03-24 22:05] LABS: Appearance Urine Clear; Color Urine Yellow; Glucose Urine UA Negative (Negative); Leukocyte Esterase Urine Small (1+) (Negative); Nitrite Urine Positive (Negative); PH 5.5 (5.0-9.0); Specific Gravity - Urine >= 1.030 (1.005-1.025); UMIC TRIGGER UACC YES; Urine Blood Trace (Negative); Urine Ketones Trace mg/dL (Negative); Urine Protein Trace mg/dL (Neg-Trace)
[2022-03-24] MEDS: Enoxaparin Sodium 60 MG/0.6 ML SYRINGE SUBCUT (22:08)
[2022-03-24 22:11] VITALS: BP 123/54; PULSE 94; RESP 28; O2SAT 93
[2022-03-24 22:22] LABS: Bacteria Urine 4+ (None Seen); Hyaline Casts Urine 0-2 /LPF (0-2); RBC Urine 0-2 /HPF (0-2); Squamous Epithelial Cell Urine 0-2 /HPF (0-2); UACC Culture Trigger YES
[2022-03-24 22:31] LABS: Troponin-I High Sensitivity 84.2 ng/L (<3.5-17.0)
--- NOTE | 2022-03-24 22:37 | PC.NURSE ---
Critical result received from Kadie at the lab: Troponin 84.2. Moville text sent to Dr. Cardona.
[2022-03-25] VITALS (7 sets, daily range): BP systolic 104–142; BP diastolic 54–73; PULSE 78–85; RESP 16–28; TEMP 36.6–37.7; O2SAT 92–98
--- NOTE | 2022-03-25 | CA_ITS ---
Acquisition Time: 2022-03-26 08:37:30 Total Exercise Time: 00:02:55 Test Indications: CHEST PAIN Medications: Protocol: ARMIN Max HR: 108 BPM 77% of Pred: 139 BPM Max BP: 133/080 mmHG Max Work Load: 4.6 METS Exercise stress test with exercise 2 min 55 sec of Armin protocol, achieving 78% MPHR, with request to stop due to fatigue, denies sob or chest discomfort, with isolated PACs and atrial cuplets, with normotensive resposne to exercise, with nondiagnostic for ischemia due to suboptimal heart rate however no ischemic changes noted at achieved workload. Test reviewed with Dr Esquivel. Referred By: Dev Esquivel Overread By: FAUSTINO TURNER
[2022-03-25] MEDS: 0.9 % Sodium Chloride Flush 3 ML SYRINGE IVFLUSH ×3 (00:04→17:50)
--- NOTE | 2022-03-25 06:10 | PC.NURSE ---
Pts son, Anika Harper, would like a phone call once pt has a room available. Son can be reached at [phone].
--- NOTE | 2022-03-25 07:00 | CA_ITS ---
Transthoracic Echocardiogram Patient (Last, First, Middle): Asia Harper B Gender: Female Date of : 1940 Age: 81 Procedure Date: 03/25/2022 Procedure Type: Transthoracic Echocardiogram [place] [facility] [place]: 162.56 cm Weight: 58.06 kg BSA: 1.62 m2 Heart Rate: bpm BP: 123 / 54 mmHg Third Helper: DIANE Referring MD: Kassandra WILSON Symptoms: unstable angina Study Quality: Adequate Conclusions: - Normal left ventricular cavity size. There is moderately increased left ventricular wall thickness. The left ventricular systolic function is hyperdynamic. The visually estimated ejection fraction is >70%. - Normal right ventricular cavity size and systolic function. - The left atrium is severely dilated. - There is severe mitral annular calcification. There is moderate to severe mitral valve regurgitation. Mitral stenosis is present. Mean gradient across the mitral valve of 9 mm Hg at 80 beats per minute. - There is mild dilatation of the ascending aorta measuring 3.60 cm. - Significantly elevated right atrial pressure. Moderate pulmonary hypertension is present. Findings Left Ventricle Normal left ventricular cavity size. There is moderately increased left ventricular wall thickness. The left ventricular systolic function is hyperdynamic. The visually estimated ejection fraction is >70%. There is no evidence of regional wall motion abnormalities. Diastolic function is indeterminate on the basis of available data. Global longitudinal strain reduced at -11.8%. Right Ventricle Normal right ventricular cavity size and systolic function. Atria The left atrium is severely dilated. The right atrium is normal in size. Aortic Valve A bioprosthetic aortic valve is present. The prosthetic aortic valve appears to be functioning normally. There is no aortic valve stenosis. There is no aortic valve regurgitation. Mitral Valve There is severe mitral annular calcification. There is moderate to severe mitral valve regurgitation. Mitral stenosis is present. Mean gradient across the mitral valve of 9 mm Hg at 80 beats per minute. Pulmonic Valve The pulmonic valve is likely normal. Tricuspid Valve Normal tricuspid valve structure and function. There is trace tricuspid valve regurgitation. Significantly elevated right atrial pressure. Moderate pulmonary hypertension is present. Great Vessels There is mild dilatation of the ascending aorta measuring 3.60 cm. The visualized portions of the pulmonary artery and branches are normal. Venous The inferior vena cava is dilated and does not collapse with inspiration. Pericardium/Pleural There is no evidence of pericardial effusion. Prior Study Comparison No prior study available for comparison. Measurements 2D Linear Measurements IVSd: 1.25 0.6-0.9/0.6-1.0 cm LVIDd: 4.50 3.9-5.3/4.2-5.9 cm LVIDd Index: 2.78 2.4-3.2/2.2-3.1 cm/m2 LVIDs: 3.10 2.0-3.6 cm LVPWd: 1.26 0.7-1.1 cm LA Diam: 4.10 2.7-3.8/3.0-4.0 cm LAIDs Index: 2.53 1.5-2.3 cm/m2 LV Mass: 263.48 67-162/88-224 g LV Mass Index: 162.64 43-95/49-115 g/m2 LVOT Diam: 1.90 3.0+(-)1.3 cm 2D Systolic Function EF 4C: 64.00 >55% EF 2C: 68.20 >55% Mitral Valve MV VTI: 0.68 MV Pk Franklin: 2.09 MV Mn Franklin: 1.43 MV Pk Grad: 17.00 MV Mn Grad: 9.00 MV Pk E: 1.60 MV PK A: 1.89 MV Decel Time: 336.00 E/A: 0.80 E'Lateral: 4.90 E'Medial: 4.24 E/E' Med: 37.70 E/E' Lat: 32.70 PHT: 98.00 MVA PHT: 2.24 MVA Continuity: 1.04 Decel Johnson: 4.77 MR Vol - PW Dopp: 12.25 MR VTI: 1.75 MR ERO: 7.00 MR Alias Franklin: 0.40 MR RAD: 0.40 Aortic Valve AoV Pk Franklin: 2.34 AoV Mn Franklin: 1.56 AoV VTI: 0.43 AoV Pk Grad: 22.00 Aov Mn Grad: 11.00 STAN Cont.VTI: 1.63 LVOT LVOT Pk Franklin: 1.15 LVOT Mn Franklin: 0.82 LVOT VTI: 0.25 LVOT Pk Grad: 5.00 LVOT Mn Grad: 3.00 LVOT Diam: 1.90 LVOT Area: 2.84 Diastolic Function MV Pk E: 1.60 MV Pk A: 1.89 E/A: 0.80 E'Medial: 4.24 E/E' Med: 37.70 E' Laterial: 4.90 E/E' Lat: 32.70 Right Ventricle TAPSE (mm): 20.30 TVS' Franklin: 13.80 Tricuspid Valve TR Pk Franklin: 2.93 TR Pk Grad: 34.00 RA Press: 15.00 RVSP: 49.00 Great Vessels Aorta Sinus of Valsalva: 3.36 2.0-3.5 cm Ao Asc: 3.60 2.1-3.4 cm Updated in Other Vendor System with Status of Final Dev Esquivel MD electronically signed on 03/25/2022 4:50:59 PM with status of Final
[2022-03-25 07:33] LABS: Basophils Absolute Auto 0.1 X10*3/uL (0.0-0.2); Basophils Percent Auto 0.4 % (0-2); Eosinophils Absolute Auto 0.1 X10*3/uL (0.0-0.4); Eosinophils Percent Auto 0.6 % (0-4); Hematocrit 33.6 % (37.0-47.0); Hemoglobin 11.5 g/dl (12.0-16.0); Imm Gran Abs Auto 0.06 X10*3/uL (0.00-0.03); Imm Gran Pct Auto 0.4 % (0.0-0.4); Lymphocytes Absolute Auto 1.4 X10*3/uL (1.2-4.9); Lymphocytes Percent Auto 10.5 % (20-40); MANUAL DIFF FLAG SCAN; Mean Corpuscular HGB Conc 34.2 g/dl (31.0-35.0); Mean Corpuscular Hemoglobin 29.6 pg (27.0-33.0); Mean Corpuscular Volume 86.6 fL (80.0-98.0); Mean Platelet Volume 10.9 fL (9.4-12.3); Monocytes Absolute Auto 1.6 X10*3/uL (0.1-1.2); Monocytes Percent Auto 11.6 % (2-11); Neutrophils Absolute Auto 10.5 x10*3/uL (2.0-8.3); Neutrophils Percent Auto 76.5 % (45-73); Platelet Count 229 X10*3/uL (160-400); Red Blood Count 3.88 X10*6/uL (4.20-5.50); Red Cell Distribution Width 13.2 % (11.0-16.0); SCAN SMEAR FLAG 1; White Blood Count 13.8 X10*3/uL (4.8-10.8)
[2022-03-25 07:53] LABS: Anion Gap 16 (12-20); Blood Urea Nitrogen 29 mg/dL (9-16); Carbon Dioxide 24 mmol/L (22-29); Chloride 101 mmol/L (96-108); Creatinine Clr Calc Pharmacy 36.2; Estimated Glomerular Filt Rate 50; Glucose Random 115 mg/dL (60-115); Sodium 137 mmol/L (135-145)
[2022-03-25 08:05] LABS: SLIDE REVIEW VERIFIED
[2022-03-25] MEDS: Furosemide 20 MG TABLET 60 MG PO (08:25)
[2022-03-25] MEDS: amLODIPine Besylate 5 MG TABLET PO (08:26)
[2022-03-25] MEDS: Clopidogrel Bisulfate 75 MG TABLET PO (08:26)
--- NOTE | 2022-03-25 08:33 | PC.NURSE ---
Pharmacy called for 2 medications not available in ED.
--- NOTE | 2022-03-25 09:01 | MHC.CM.PN ---
CM ATTEMPTED TO MEET WITH PT WHO IS HAVING IMAGING COMPLETED
[2022-03-25] MEDS: Thyroid,Pork 30 MG TABLET 60 MG PO (09:33)
--- NOTE | 2022-03-25 09:34 | PC.NURSE ---
Pt refused stating med came too late from pharmacy becsuse she normally takes it in an empty stomach and already ate breakfast
--- NOTE | 2022-03-25 09:39 | PC.NURSE ---
[place] [facility] [place]
--- NOTE | 2022-03-25 10:37 | MHC.CM.PN ---
CM met with Patient at bedside and addressed IMM with her (original has been given to Patient and a copy has been placed on the chart). Patient lives in a house with her and she required no services nor DME [employer]ER. Home/self care is the goal and CM has initiated and will follow for dc planning. Patient has received Moderna/Covid vax x3 and her PCP is Dr. Deysi Berry.
--- NOTE | 2022-03-25 12:34 | HO.PM.IMPN ---
Subjective Subjective Date of Service: 03/25/22 Interval History: chest pain improved Physical Exam Vital Signs: Vital Signs: Last Vital Signs Temp 98.4 F 03/25/22 11:48 Pulse 84 03/25/22 11:48 Resp 18 03/25/22 11:48 BP 139/63 03/25/22 11:48 Pulse Ox 94 03/25/22 11:48 O2 Del Method 03/25/22 11:48 BMI result Body Mass Index 21.9 General: AO X 3, no acute distress Resp: CTA bilateral, no accessory muscles used CVS: S1,S2,RRR GI: soft, non tender, non distended Neuro: motor grossly intact, alert Psych: appropriate affect, appropriate insight Objective Data Active Medications Acetaminophen (Acetaminophen 325 Mg Tablet) 650 mg PO Q6H PRN PRN Reason: Pain, Mild (Pain Scale 1-3) Amlodipine Besylate (Amlodipine Besylate 5 Mg Tablet) 5 mg PO DAILY [facility]; Protocol Last Admin: 03/25/22 08:26 Dose: 5 mg Documented By: HELEN Lipase/Protease/Amylase (Lipase/Prot/Amylase 24/76/120k 1 Cap Capsule.) 1 cap PO TIDWM [facility] Last Admin: 03/25/22 09:34 Dose: Not Given Documented By: HELEN Non-Admin Reason: Patient Refused Aspirin (Aspirin Enteric Coated 81 Mg Tablet.) 81 mg PO BEDTIME [facility] Clopidogrel Bisulfate (Clopidogrel Bisulfate 75 Mg Tablet) 75 mg PO DAILY [facility] Last Admin: 03/25/22 08:26 Dose: 75 mg Documented By: HELEN Enoxaparin Sodium (Enoxaparin Sodium 60 Mg/0.6 Ml Syringe) 60 mg SUBCUT Q24H [facility] Last Admin: 03/24/22 22:08 Dose: 60 mg Documented By: KEYON Furosemide (Furosemide 20 Mg Tablet) 60 mg PO DAILY [facility]; Protocol Last Admin: 03/25/22 08:25 Dose: 60 mg Documented By: HELEN Non-Formulary Medication (Levalbuterol Tartrate [Xopenex Hfa]) 1 puff PO Q4H PRN PRN Reason: shortness of breath or wheezing Ondansetron HCl (Ondansetron Hcl 4 Mg/2 Ml Vial) 4 mg IVPUSH Q8H PRN PRN Reason: Nausea and Vomiting Pharmacy Consult (Consult Rx Perform Med Rec) 1 each MISCELLANE ONCE PRN PRN Reason: Consult order Sodium Chloride (0.9 % Sodium Chloride Flush 3 Ml Syringe) 3 ml IVFLUSH QSHIFT [facility] Last Admin: 03/25/22 07:45 Dose: 3 ml Documented By: HELEN Spironolactone (Spironolactone 25 Mg Tablet) 25 mg PO BEDTIME [facility]; Protocol Thyroid (Thyroid,Pork 30 Mg Tablet) 60 mg PO BID [facility] Last Admin: 03/25/22 09:33 Dose: 60 mg Documented By: HELEN Thyroid (Thyroid,Pork 30 Mg Tablet) 60 mg PO MoWeFr@1500 ZARA Thyroid (Thyroid,Pork 30 Mg Tablet) 30 mg PO SuTuThSa@1500 [facility] Labs 03/25/22 06:54 03/25/22 06:54 Labs: Laboratory Results - last 24 hr 03/24/22 03/24/22 03/24/22 15:53 15:54 15:54 MCV 86.2 MCH 29.2 MCHC 33.8 RDW 13.2 Plt Count 268 MPV 10.2 Immature Gran % (Auto) 0.5 H Neut % (Auto) 79.9 H Lymph % (Auto) 8.5 L [place] % (Auto) 8.6 Eos % (Auto) 2.0 Baso % (Auto) 0.5 Lymph # (Auto) 1.1 L [place] # (Auto) 1.1 Eos # (Auto) 0.3 Baso # (Auto) 0.1 Abs Immat Gran (auto) 0.07 H Absolute Neuts (auto) 10.2 H Absolute Nucleated RBC 0.000 Nucleated RBC % (auto) 0.0 Smear Tech's Comments PT INR APTT D-Dimer High Sensitivty Anion Gap 17 Estim Creat Clear Calc 30.7 Estimated GFR 42 Random Glucose 137 H Calcium 9.9 Magnesium 2.0 Total Bilirubin 0.7 Direct Bilirubin 0.2 AST 18 ALT 9 Alkaline Phosphatase 106 Troponin I High Sens 74.4 H* B-Natriuretic Peptide Total Protein 7.3 Albumin 4.3 Urine Color Urine Appearance Urine pH Ur Specific [place] Urine Protein Urine Glucose (UA) Urine Ketones Urine Blood Urine Nitrite Ur Leukocyte Esterase Urine RBC Urine WBC Ur Squamous Epith Cells Urine Bacteria Hyaline Casts COVID-19 (BILL) COVID-19 Clin Com Influenza Type A (MICHELE) Influenza Type B (MICHELE) Influenza A & B Note 03/24/22 03/24/22 03/24/22 15:54 15:54 15:54 MCV MCH MCHC RDW Plt Count MPV Immature Gran % (Auto) Neut % (Auto) Lymph % (Auto) [place] % (Auto) Eos % (Auto) Baso % (Auto) Lymph # (Auto) [place] # (Auto) Eos # (Auto) Baso # (Auto) Abs Immat Gran (auto) Absolute Neuts (auto) Absolute Nucleated RBC Nucleated RBC % (auto) Smear Tech's Comments PT 12.1 INR 1.1 APTT 36.0 D-Dimer High Sensitivty 730 Anion Gap Estim Creat Clear Calc Estimated GFR Random Glucose Calcium Magnesium Total Bilirubin Direct Bilirubin AST ALT Alkaline Phosphatase Troponin I High Sens B-Natriuretic Peptide 942 H Total Protein Albumin Urine Color Urine Appearance Urine pH Ur Specific [place] Urine Protein Urine Glucose (UA) Urine Ketones Urine Blood Urine Nitrite Ur Leukocyte Esterase Urine RBC Urine WBC Ur Squamous Epith Cells Urine Bacteria Hyaline Casts COVID-19 (BILL) Negative COVID-19 Clin Com See Note Influenza Type A (MICHELE) Influenza Type B (MICHELE) Influenza A & B Note 03/24/22 03/24/22 03/24/22 16:49 19:06 21:57 MCV MCH MCHC RDW Plt Count MPV Immature Gran % (Auto) Neut % (Auto) Lymph % (Auto) [place] % (Auto) Eos % (Auto) Baso % (Auto) Lymph # (Auto) [place] # (Auto) Eos # (Auto) Baso # (Auto) Abs Immat Gran (auto) Absolute Neuts (auto) Absolute Nucleated RBC Nucleated RBC % (auto) Smear Tech's Comments PT INR APTT D-Dimer High Sensitivty Anion Gap Estim Creat Clear Calc Estimated GFR Random Glucose Calcium Magnesium Total Bilirubin Direct Bilirubin AST ALT Alkaline Phosphatase Troponin I High Sens 91.6 H* B-Natriuretic Peptide Total Protein Albumin Urine Color Yellow Urine Appearance Clear Urine pH 5.5 Ur Specific [place] >= 1.030 H Urine Protein Trace Urine Glucose (UA) Negative Urine Ketones Trace Urine Blood Trace H Urine Nitrite Positive H Ur Leukocyte Esterase Small (1+) H Urine RBC 0-2 Urine WBC 11-20 H Ur Squamous Epith Cells 0-2 Urine Bacteria 4+ Hyaline Casts 0-2 COVID-19 (BILL) COVID-19 Clin Com Influenza Type A (MICHELE) Negative Influenza Type B (MICHELE) Negative Influenza A & B Note See Note 03/24/22 03/25/22 03/25/22 22:05 06:54 06:54 MCV 86.6 MCH 29.6 MCHC 34.2 RDW 13.2 Plt Count 229 MPV 10.9 Immature Gran % (Auto) 0.4 Neut % (Auto) 76.5 H Lymph % (Auto) 10.5 L [place] % (Auto) 11.6 H Eos % (Auto) 0.6 Baso % (Auto) 0.4 Lymph # (Auto) 1.4 [place] # (Auto) 1.6 H Eos # (Auto) 0.1 Baso # (Auto) 0.1 Abs Immat Gran (auto) 0.06 H Absolute Neuts (auto) 10.5 H Absolute Nucleated RBC 0.000 Nucleated RBC % (auto) 0.0 Smear Tech's Comments VERIFIED PT INR APTT D-Dimer High Sensitivty Anion Gap 16 Estim Creat Clear Calc 36.2 Estimated GFR 50 Random Glucose 115 Calcium 9.0 D Magnesium Total Bilirubin Direct Bilirubin AST ALT Alkaline Phosphatase Troponin I High Sens 84.2 H* B-Natriuretic Peptide Total Protein Albumin Urine Color Urine Appearance Urine pH Ur Specific [place] Urine Protein Urine Glucose (UA) Urine Ketones Urine Blood Urine Nitrite Ur Leukocyte Esterase Urine RBC Urine WBC Ur Squamous Epith Cells Urine Bacteria Hyaline Casts COVID-19 (BILL) COVID-19 Clin Com Influenza Type A (MICHELE) Influenza Type B (MICHELE) Influenza A & B Note Microbiology Microbiology Results: Microbiology 03/24/22 22:30 Urine Culture - Preliminary Urine clean catch - Urine [place] top Culture in progress. Assessment and Plan (1) Unstable angina: Status: Acute Plan 81-year-old female with history of coronary artery disease s/p PCI of the RCA with 2 stents placed, history of exudate of pleural effusion, pulmonary nodules, Kisha's disease, Sjogren syndrome, Raynaud's, s/p bioprosthetic TAVR, mitral valve regurgitation scheduled for replacement following with Dr. Vitale at [facility] Cardiology, hx atrial fibrillation with cardiac ablation 12/31 not on anticoagulation, essential tremor, and EPI admitted for unstable angina. Unstable angina therapeutic lovenox echocardiogram cardiology continue asa, plavix Valvular heart disease s/p bioprosthetic TAVR and mitral valve regurgitation echo pending Kisha's continue thyroid supplement EPI -continue pancreatic enzymes paroxysmal afib s/p cardiac ablation 12/31- rate controlled -not on anticoagulation Heart failure, EF unknown -without acute exacerbation -Continue lasix -echo pending as above CKD stage 3 -renal function baseline. DVT prophaylxis- therapeutic Lovenox Full code reason for continued hospitalization:treated unstable angina Time Spent With Patient Time: Total time managing care of this patient today ____ minutes. Quality Stroke Does the patient have a stroke diagnosis?: No VTE Prior VTE?: No VTE Risk Level:: Medical - moderate - high VTE Device Contraindication: Treatment Not Indicated VTE Drug Contraindication: N/A - Med Ordered
[2022-03-25] MEDS: Lipase/Prot/Amylase 24/76/120K 1 CAP CAPSULE.DR PO (12:40)
[2022-03-25] MEDS: Thyroid,Pork 30 MG TABLET PO (14:58)
--- NOTE | 2022-03-25 17:23 | PM.CNCAR ---
History of Present Illness History of Present Illness Date of Service: 03/25/22 Requesting physician: Abner Venegas Chief complaint: Chest pain, ?unstable angina Narrative: 81-year-old female with complex cardiovascular history. She follows with Dr Roderick Vitale at [facility]. She has a complex cardiovascular history including severe aortic valve stenosis for which she underwent transcatheter aortic valve replacement. It appears she had septal hypertrophy and underwent alcohol septal ablation by her report. She also has severe calcific mitral valve disease with moderate to severe mitral regurgitation by our echocardiogram as well as stenosis. She is being considered for valve [place] [facility]. She had right coronary artery stents in November 2021. This was done before she had transcatheter aortic valve placement. She did not have any anginal episodes before that. She is now presenting with sudden onset chest discomfort radiating to her jaw and shoulders. She is saying she will eating tomato soup yesterday when she started feeling chest discomfort. She has never felt this discomfort before. These symptoms were present for many many hours. She said the chest discomfort went away after she received Lovenox. She is pain-free at this stage she was started on heparin drip by the medicine service. Her high sensitive troponin levels are 74, 91 and 84. EKG showing sinus rhythm with left anterior fascicular block, cannot rule out septal infarct, QTC of 455 milliseconds. [facility] Past Medical History Medical History (Updated 03/24/22 @ 21:30 by STEVE Valera) Atelectasis CAD (coronary artery disease) Essential tremor Kisha's thyroiditis History of atrial fibrillation Mitral valve regurgitation Pleural effusion Pulmonary nodules Sjogren's disease Valvular heart disease Surgical History Surgical History S/P TAVR (transcatheter aortic valve replacement) Social History Social History Household Members: Spouse Housing: House Do you presently have visiting nurse or other home services: No Alcohol intake: current Alcohol intake frequency: holidays/special occasions only Patient Tobacco Use Status: Never used Tobacco service: No Current occupational status: retired Meds Allergies Allergy/AdvReac Type Severity Reaction Status Date / Time epinephrine [Epinephrine] AdvReac Mild VERY SHAKY Verified 03/24/22 17:12 Active Medications: Current Medications Acetaminophen (Acetaminophen 325 Mg Tablet) 650 mg PO Q6H PRN PRN Reason: Pain, Mild (Pain Scale 1-3) Amlodipine Besylate (Amlodipine Besylate 5 Mg Tablet) 5 mg PO DAILY [facility]; Protocol Last Admin: 03/25/22 08:26 Dose: 5 mg Lipase/Protease/Amylase (Lipase/Prot/Amylase 24/76/120k 1 Cap Capsule.) 1 cap PO TIDWM [facility] Last Admin: 03/25/22 12:40 Dose: 1 cap Aspirin (Aspirin Enteric Coated 81 Mg Tablet.) 81 mg PO BEDTIME [facility] Clopidogrel Bisulfate (Clopidogrel Bisulfate 75 Mg Tablet) 75 mg PO DAILY [facility] Last Admin: 03/25/22 08:26 Dose: 75 mg Enoxaparin Sodium (Enoxaparin Sodium 60 Mg/0.6 Ml Syringe) 60 mg SUBCUT Q24H [facility] Last Admin: 03/24/22 22:08 Dose: 60 mg Furosemide (Furosemide 20 Mg Tablet) 60 mg PO DAILY [facility]; Protocol Last Admin: 03/25/22 08:25 Dose: 60 mg Non-Formulary Medication (Levalbuterol Tartrate [Xopenex Hfa]) 1 puff PO Q4H PRN PRN Reason: shortness of breath or wheezing Ondansetron HCl (Ondansetron Hcl 4 Mg/2 Ml Vial) 4 mg IVPUSH Q8H PRN PRN Reason: Nausea and Vomiting Pharmacy Consult (Consult Rx Perform Med Rec) 1 each MISCELLANE ONCE PRN PRN Reason: Consult order Sodium Chloride (0.9 % Sodium Chloride Flush 3 Ml Syringe) 3 ml IVFLUSH QSHIFT [facility] Last Admin: 03/25/22 07:45 Dose: 3 ml Spironolactone (Spironolactone 25 Mg Tablet) 25 mg PO BEDTIME [facility]; Protocol Thyroid (Thyroid,Pork 30 Mg Tablet) 60 mg PO BID [facility] Last Admin: 03/25/22 09:33 Dose: 60 mg Thyroid (Thyroid,Pork 30 Mg Tablet) 60 mg PO MoWeFr@1500 ZARA Thyroid (Thyroid,Pork 30 Mg Tablet) 30 mg PO SuTuThSa@1500 [facility] Last Admin: 03/25/22 14:58 Dose: 30 mg Home Medications Medication Instructions Recorded Confirmed Last Taken Type aspirin 81 mg tablet,delayed 81 mg PO BEDTIME 08/03/24/22 03/23/22 History release [id number] 1 cap PO TIDWM 10/03/21 03/24/22 03/24/22 History 36,000-114,000-180,000 unit capsule,delay rel ([place]) thyroid (pork) 30 mg tablet 60 mg PO DAILY 10/03/21 03/24/22 03/24/22 History ([place] Thyroid) amlodipine 5 mg tablet 5 mg PO DAILY 02/27/22 03/24/22 03/24/22 History clopidogrel 75 mg tablet 75 mg PO DAILY 02/27/22 03/24/22 03/24/22 History furosemide 20 mg tablet 60 mg PO DAILY 02/27/22 03/24/22 03/24/22 History spironolactone 25 mg tablet 25 mg PO BEDTIME 02/27/22 03/24/22 03/23/22 History levocetirizine 5 mg tablet (Xyzal) 5 mg PO QPM 03/24/22 03/24/22 03/23/22 History thyroid (pork) 30 mg tablet 30 mg PO SUTUTHSA@15 03/24/22 03/24/22 03/23/22 History ([place] Thyroid) thyroid (pork) 30 mg tablet 60 mg PO MOWEFR@15 03/24/22 03/24/22 03/24/22 History ([place] Thyroid) Physical Exam Vital Signs: Vital Signs: Last Vital Signs Temp 99.0 F 03/25/22 15:31 Pulse 82 03/25/22 15:31 Resp 18 03/25/22 15:31 BP 129/73 03/25/22 15:31 Pulse Ox 95 03/25/22 15:31 O2 Del Method 03/25/22 15:31 BMI result Body Mass Index 21.9 GENERAL APPEARANCE: in no acute distress, pleasant. NECK: no carotid bruit, no jugular venous distention. SKIN: no suspicious lesions, warm and dry. HEART: no murmurs, regular rate and rhythm. LUNGS: clear to auscultation bilaterally. ABDOMEN: soft, nontender. EXTREMITIES: no edema. PERIPHERAL PULSES: equal. NEUROLOGIC: No gross deficits, AAO X 3 Objective Labs and Meds 03/25/22 06:54 03/25/22 06:54 Lab results: Laboratory Results - last 24 hr 03/24/22 03/24/22 03/24/22 19:06 21:57 22:05 WBC RBC Hgb Hct MCV MCH MCHC RDW Plt Count MPV Immature Gran % (Auto) Neut % (Auto) Lymph % (Auto) [place] % (Auto) Eos % (Auto) Baso % (Auto) Lymph # (Auto) [place] # (Auto) Eos # (Auto) Baso # (Auto) Abs Immat Gran (auto) Absolute Neuts (auto) Absolute Nucleated RBC Nucleated RBC % (auto) Smear Tech's Comments Sodium Potassium Chloride Carbon Dioxide Anion Gap BUN Creatinine Estim Creat Clear Calc Estimated GFR Random Glucose Calcium Troponin I High Sens 91.6 H* 84.2 H* Urine Color Yellow Urine Appearance Clear Urine pH 5.5 Ur Specific [place] >= 1.030 H Urine Protein Trace Urine Glucose (UA) Negative Urine Ketones Trace Urine Blood Trace H Urine Nitrite Positive H Ur Leukocyte Esterase Small (1+) H Urine RBC 0-2 Urine WBC 11-20 H Ur Squamous Epith Cells 0-2 Urine Bacteria 4+ Hyaline Casts 0-2 03/25/22 03/25/22 06:54 06:54 WBC 13.8 H RBC 3.88 L Hgb 11.5 L Hct 33.6 L MCV 86.6 MCH 29.6 MCHC 34.2 RDW 13.2 Plt Count 229 MPV 10.9 Immature Gran % (Auto) 0.4 Neut % (Auto) 76.5 H Lymph % (Auto) 10.5 L [place] % (Auto) 11.6 H Eos % (Auto) 0.6 Baso % (Auto) 0.4 Lymph # (Auto) 1.4 [place] # (Auto) 1.6 H Eos # (Auto) 0.1 Baso # (Auto) 0.1 Abs Immat Gran (auto) 0.06 H Absolute Neuts (auto) 10.5 H Absolute Nucleated RBC 0.000 Nucleated RBC % (auto) 0.0 Smear Tech's Comments VERIFIED Sodium 137 Potassium 4.0 Chloride 101 Carbon Dioxide 24 Anion Gap 16 BUN 29 H Creatinine 1.05 Estim Creat Clear Calc 36.2 Estimated GFR 50 Random Glucose 115 Calcium 9.0 D Troponin I High Sens Urine Color Urine Appearance Urine pH Ur Specific [place] Urine Protein Urine Glucose (UA) Urine Ketones Urine Blood Urine Nitrite Ur Leukocyte Esterase Urine RBC Urine WBC Ur Squamous Epith Cells Urine Bacteria Hyaline Casts Imaging Radiologist's impression: Impressions Chest CTA 03/24/22 17:47 IMPRESSION: No evidence for pulmonary embolism or dissection. Minimal atelectasis at the right base. Mosaic attenuation the lower lungs likely reflects air-trapping and perhaps some small vessel disease. No focal prominent area of consolidation Calcific atherosclerotic changes noted throughout. Postoperative changes with valve replacement mitral annular calcification VTE: negative Assessment and Plan (1) Chest pain: Status: Acute Plan Pleasant 81-year-old female presenting with chest pain. She has complex cardiovascular issues as described above. Clinically not in heart failure right now. She has sudden-onset chest discomfort while eating soup. She has no dynamic EKG changes or troponin rise with prolonged episode of chest discomfort. Echocardiography showing hyperdynamic left ventricular function without any regional wall motion abnormalities. I think heparin can be discontinued. We will do a treadmill stress test on her tomorrow. If he exercises and does not get any chest discomfort then I will discharge her and she will continue to follow at [facility] as before. If stress test is abnormal or if she gets exertional chest discomfort then I will consider diagnostic angiography. Given her CKD I am being very cautious with contrast exposure and would take a ischemia guided strategy in her. Thank you for allowing me to participate in the care of your patient. Please feel free to contact me if you have any questions. Time Spent With Patient Time: Total time managing care of this patient today ____ minutes. Procedures Date of Service Date of Service: 03/25/22
[2022-03-25] MEDS: Aspirin Enteric Coated 81 MG TABLET.DR PO (20:05)
[2022-03-25] MEDS: Spironolactone 25 MG TABLET PO (20:11)
[2022-03-26] VITALS (7 sets, daily range): BP systolic 98–125; BP diastolic 54–78; PULSE 68–80; RESP 16–18; TEMP 36.1–36.6; O2SAT 95–97
--- NOTE | 2022-03-26 | ECG_ITS ---
Test Reason : AFIB Blood Pressure : / mmHG Vent. Rate : 134 BPM Atrial Rate : 000 BPM P-R Int : 000 ms QRS Dur : 104 ms QT Int : 332 ms P-R-T Axes : 000 -41 120 degrees QTc Int : 495 ms Atrial fibrillation with rapid ventricular response Left axis deviation Moderate voltage criteria for LVH, may be normal variant ( R in aVL , James product ) Marked ST abnormality, possible lateral subendocardial injury Abnormal ECG When compared with ECG of 24-MAR-2022 14:37, Atrial fibrillation has replaced Sinus rhythm Minimal criteria for Septal infarct are no longer Present ST now depressed in Anterolateral leads Referred By: Dev Esquivel Electronically Signed By:Dev Esquivel
[2022-03-26] MEDS: 0.9 % Sodium Chloride Flush 3 ML SYRINGE IVFLUSH ×2 (00:19→07:59)
[2022-03-26] MEDS: Acetaminophen 325 MG TABLET 650 MG PO (01:25)
[2022-03-26 07:53] LABS: Hematocrit 34.5 % (37.0-47.0); Hemoglobin 11.7 g/dl (12.0-16.0); Mean Corpuscular HGB Conc 33.9 g/dl (31.0-35.0); Mean Corpuscular Hemoglobin 28.8 pg (27.0-33.0); Mean Platelet Volume 10.6 fL (9.4-12.3); Platelet Count 234 X10*3/uL (160-400); Red Blood Count 4.06 X10*6/uL (4.20-5.50); White Blood Count 10.5 X10*3/uL (4.8-10.8)
[2022-03-26] MEDS: Lipase/Prot/Amylase 24/76/120K 1 CAP CAPSULE.DR PO ×3 (07:56→17:32)
[2022-03-26] MEDS: Enoxaparin Sodium 40 MG/0.4 ML SYRINGE SUBCUT (07:56)
[2022-03-26] MEDS: Clopidogrel Bisulfate 75 MG TABLET PO (07:56)
[2022-03-26] MEDS: amLODIPine Besylate 5 MG TABLET PO (07:57)
[2022-03-26] MEDS: Furosemide 20 MG TABLET 60 MG PO (07:57)
[2022-03-26] MEDS: Thyroid,Pork 30 MG TABLET 60 MG PO ×3 (07:57→16:04)
[2022-03-26 08:12] LABS: Anion Gap 16 (12-20); Blood Urea Nitrogen 28 mg/dL (9-16); Calcium 8.9 mg/dL (8.4-10.2); Carbon Dioxide 25 mmol/L (22-29); Chloride 101 mmol/L (96-108); Creatinine Clr Calc Pharmacy 39.6; Estimated Glomerular Filt Rate 56; Glucose Fasting 102 mg/dL (60-99); Potassium 3.9 mmol/L (3.3-5.1); Sodium 138 mmol/L (135-145)
--- NOTE | 2022-03-26 11:12 | P.PNCA_ITS ---
Subjective Subjective Date of Service: 03/26/22 <SHEILA Ureña - Last Filed: 03/26/22 11:37> 03/26/22 <Dev Esquivel MD - Last Filed: 03/26/22 12:06> Principal diagnosis: Chest discomfort <SHEILA Ureña - Last Filed: 03/26/22 11:37> Interval history: Seen at 0845 in stress lab. Today she reports feeling well. She describes having some left should pain last evening that resolved with Tylenol. She recalls that she had increased discomfort with movement of left arm. No chest discomfort since admit. No sob, palpitation, dizziness. Steady on feet. Had fatigue during stress test. Monitor was showing SR with PACs. - Post stress once back on [facility] it was noted that she went in to Afib RVR. <SHEILA Ureña - Last Filed: 03/26/22 11:37> Review of Systems Review of Systems as above <SHEILA Ureña - Last Filed: 03/26/22 11:37> Yes all other systems are reviewed and are negative <SHEILA Ureña - Last Filed: 03/26/22 11:37> Physical Exam Vital Signs: Last Vital Signs Temp 97.8 F 03/26/22 07:43 Pulse 80 03/26/22 07:43 Resp 18 03/26/22 07:43 BP 120/65 03/26/22 07:43 Pulse Ox 97 03/26/22 07:43 O2 Del Method 03/26/22 07:43 BMI result Body Mass Index 21.9 <SHEILA Ureña - Last Filed: 03/26/22 11:37> Const General: cooperative, healthy appearing, comfortable and no acute distress <SHEILA Ureña Last Filed: 03/26/22 11:37> Orientation/consciousness: patient oriented x3 <SHEILA Ureña Last Filed: 03/26/22 11:37> Neck Neck: Yes normal visual inspection and Yes no JVD <SHEILA Ureña Last Filed: 03/26/22 11:37> Resp Effort & Inspection: normal respiratory effort <Shauna Garcia NPC - Last Filed: 03/26/22 11:37> Auscultation: clear to auscultation bilaterally, no rales, no rhonchi and no wheezes <Shauna Garcia NPC - Last Filed: 03/26/22 11:37> Cardio Other: audible murmur, 2/6 heard over Mitral area, left lateral chest <Shauna Garcia NPC - Last Filed: 03/26/22 11:37> Jugular venous distension: no JVD <Shauna Garcia NPC - Last Filed: 03/26/22 11:37> Rate: regular rate <Shauna Garcia NP - Last Filed: 03/26/22 11:37> Rhythm: regular rhythm <Shauna Garcia NP - Last Filed: 03/26/22 11:37> Heart sounds: S1 normal heart sound present and no rubs <Shauna Garcia NP - Last Filed: 03/26/22 11:37> GI Inspection: Yes normal to inspection <Shauna Garcia NPC - Last Filed: 03/26/22 11:37> Neuro General: patient oriented x3 <Shauna Garcia NPC - Last Filed: 03/26/22 11:37> Extrem General: Yes normal to inspection <Shauna Garcia NP - Last Filed: 03/26/22 11:37> Psych Appearance: grossly normal <SHERON UreñaC - Last Filed: 03/26/22 11:37> Mental Status: mental status grossly normal <Shauna Garcia NPC - Last Filed: 03/26/22 11:37> Speech and movement: Normal speech and movement present <Shauna Garcia [facility] - Last Filed: 03/26/22 11:37> Objective Labs and Meds Result diagrams: 03/26/22 06:56 03/26/22 06:56 <Shauna Garcia NP - Last Filed: 03/26/22 11:37> Lab results: Laboratory Results - last 24 hr 03/26/22 03/26/22 06:56 06:56 WBC 10.5 RBC 4.06 L Hgb 11.7 L Hct 34.5 L MCV 85.0 MCH 28.8 MCHC 33.9 RDW 13.0 Plt Count 234 MPV 10.6 Absolute Nucleated RBC 0.000 Nucleated RBC % (auto) 0.0 Sodium 138 Potassium 3.9 Chloride 101 Carbon Dioxide 25 Anion Gap 16 BUN 28 H Creatinine 0.96 Estim Creat Clear Calc 39.6 Estimated GFR 56 Fasting Glucose 102 H Calcium 8.9 <SHEILA Ureña - Last Filed: 03/26/22 11:37> Progress Note: A&P Assessment and plan (1) Chest pain: Status: Acute <SHEILA Ureña - Last Filed: 03/26/22 11:37> Assessment and Plan: Admit with chest discomfort that occurred 03/24 after eating tomatoe soup and persisted for hours. EKG did not show ischemic changes. Troponins mildly elevated without ACS trend. Echo showed hyperdynamic LV function without any regional wall motion abnormalities. She has known hx of severe , s/p TAVR, Mod to severe mitral regurgitation/ stenosis and is being considered for valve surgery at [facility], CAD with stents to RCA 11/2021. She initially was placed on IV Heparin, which has since been stopped. No recurrent anginal sounding symptoms. Exercise stress test today, with exercise nearly 3 min with fatigue, no angina, no EKG changes of ischemia at achieved workload, at 78% MPHR. At this time, not felt to have unstable angina. Will have her continue plavix, amlodipine. Aspirin being stopped ( see below). s/s angina reviewed with her. 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 <SHEILA Ureña - Last Filed: 03/26/22 11:37> (2) Atrial fibrillation: Status: Acute <SHEILA Ureña - Last Filed: 03/26/22 11:37> Assessment and Plan: Hx includes atrial fibrillation. Details of that hx unknown at the time of this note. Today following stress test, when back on [facility], Tele shows the onset of atrial fibrillation RVR. EKG done and confirming afib rate 134. Will give IV Amiodarone 150mg IV now and continue monitoring. Will start on Xarelto, renal dose, Cr clearance 39.6. Will stop aspirin. Continue plavix. Has baseline hct 34.5, No bleeding issues reported. Ongoing tele monitoring. Further med mgt will be determined based on heart rate/ rhythm response to amio. <SHEILA Ureña - Last Filed: 03/26/22 11:37> (3) CAD (coronary artery disease): Status: Acute <SHEILA Ureña - Last Filed: 03/26/22 11:37> (4) Valvular heart disease: Status: Acute <SHEILA Ureña - Last Filed: 03/26/22 11:37> Assessment and Plan: Seen and examined at bedside. She came back from stress test and was noticed to have tachycardia by exam and ECG confirmed Afib. She is wearing a loop recorder from her [place] supervisor cigar making machine. We will try IV amiodarone to see if she converts. Stop the Aspirin and add Xarelto. Plavix should be continued as she has PCI to RCA in Nov 2021. My hope is she will cardiovert with amiodarone. Otherwise we will do cardioversion. She was able to exercise for 2 minutes 55 seconds achieving 4.6 metabolic equivalents on the treadmill without any ischemic EKG changes. She stopped because of fatigue. She did not have any chest discomfort. Originally presented for chest discomfort which was prolonged and at rest. No significant rise in biomarkers. No dynamic EKG changes. No wall motion abnormality on echocardiography. I think, despite the fact that the stress test is limited due to poor functional status, her presentation is not due to acute coronary syndrome currently. We will focus on atrial fibrillation and try to bring her in to sinus rhythm and potentially discharge her out of the hospital to follow-up with her supervisor cigar making machine in [place]. Thank you for allowing me to participate in the care of your patient. Please feel free to contact me if you have any questions. <Dev Esquivel MD - Last Filed: 03/26/22 12:06> Time Spent With Patient Time: Total time managing care of this patient today ___22_ minutes. <SHEILA Ureña - Last Filed: 03/26/22 11:37> Progress Note: Quality Stroke Does the patient have a stroke diagnosis?: No <SHEILA Ureña - Last Filed: 03/26/22 11:37> Procedures Date of Service Date of Service: 03/26/22 <SHEILA Ureña - Last Filed: 03/26/22 11:37>
--- NOTE | 2022-03-26 11:16 | P.PNIM_ITS ---
Subjective Subjective Date of Service: 03/26/22 Interval History: still with some discomfort, now with afib rvr Physical Exam Vital Signs: Vital Signs: Last Vital Signs Temp 97.8 F 03/26/22 07:43 Pulse 80 03/26/22 07:43 Resp 18 03/26/22 07:43 BP 120/65 03/26/22 07:43 Pulse Ox 97 03/26/22 07:43 O2 Del Method 03/26/22 07:43 BMI result Body Mass Index 21.9 GENERAL APPEARANCE: in no acute distress, pleasant. NECK: no carotid bruit, no jugular venous distention. SKIN: no suspicious lesions, warm and dry. HEART: no murmurs, regular rate and rhythm. LUNGS: clear to auscultation bilaterally. ABDOMEN: soft, nontender. EXTREMITIES: no edema. PERIPHERAL PULSES: equal. NEUROLOGIC: No gross deficits, AAO X 3 Objective Data Active Medications Acetaminophen (Acetaminophen 325 Mg Tablet) 650 mg PO Q6H PRN PRN Reason: Pain, Mild (Pain Scale 1-3) Last Admin: 03/26/22 01:25 Dose: 650 mg Documented By: SPENCER Amlodipine Besylate (Amlodipine Besylate 5 Mg Tablet) 5 mg PO DAILY [facility]; Protocol Last Admin: 03/26/22 07:57 Dose: 5 mg Documented By: JOSE Lipase/Protease/Amylase (Lipase/Prot/Amylase 24/76/120k 1 Cap Capsule.) 1 cap PO TIDWM [facility] Last Admin: 03/26/22 07:56 Dose: 1 cap Documented By: JOSE Aspirin (Aspirin Enteric Coated 81 Mg Tablet.) 81 mg PO BEDTIME [facility] Last Admin: 03/25/22 20:05 Dose: 81 mg Documented By: SPENCER Clopidogrel Bisulfate (Clopidogrel Bisulfate 75 Mg Tablet) 75 mg PO DAILY [facility] Last Admin: 03/26/22 07:56 Dose: 75 mg Documented By: JOSE Enoxaparin Sodium (Enoxaparin Sodium 40 Mg/0.4 Ml Syringe) 40 mg SUBCUT Q24H [facility] Last Admin: 03/26/22 07:56 Dose: 40 mg Documented By: JOSE Furosemide (Furosemide 20 Mg Tablet) 60 mg PO DAILY [facility]; Protocol Last Admin: 03/26/22 07:57 Dose: 60 mg Documented By: JOSE Non-Formulary Medication (Levalbuterol Tartrate [Xopenex Hfa]) 1 puff PO Q4H PRN PRN Reason: shortness of breath or wheezing Ondansetron HCl (Ondansetron Hcl 4 Mg/2 Ml Vial) 4 mg IVPUSH Q8H PRN PRN Reason: Nausea and Vomiting Pharmacy Consult (Consult Rx Perform Med Rec) 1 each MISCELLANE ONCE PRN PRN Reason: Consult order Sodium Chloride (0.9 % Sodium Chloride Flush 3 Ml Syringe) 3 ml IVFLUSH QSHIFT [facility] Last Admin: 03/26/22 07:59 Dose: 3 ml Documented By: JOSE Spironolactone (Spironolactone 25 Mg Tablet) 25 mg PO BEDTIME [facility]; Protocol Last Admin: 03/25/22 20:11 Dose: 25 mg Documented By: SPENCER Thyroid (Thyroid,Pork 30 Mg Tablet) 60 mg PO BID [facility] Last Admin: 03/26/22 07:57 Dose: 60 mg Documented By: JOSE Thyroid (Thyroid,Pork 30 Mg Tablet) 60 mg PO MoWeFr@1500 ZARA Thyroid (Thyroid,Pork 30 Mg Tablet) 30 mg PO SuTuThSa@1500 [facility] Last Admin: 03/25/22 14:58 Dose: 30 mg Documented By: ALPHONSEI Labs 03/26/22 06:56 03/26/22 06:56 Labs: Laboratory Results - last 24 hr 03/26/22 03/26/22 06:56 06:56 MCV 85.0 MCH 28.8 MCHC 33.9 RDW 13.0 Plt Count 234 MPV 10.6 Absolute Nucleated RBC 0.000 Nucleated RBC % (auto) 0.0 Anion Gap 16 Estim Creat Clear Calc 39.6 Estimated GFR 56 Fasting Glucose 102 H Calcium 8.9 Microbiology Microbiology Results: Microbiology 03/24/22 22:30 Urine Culture - Preliminary Urine clean catch - Urine [place] top Gram negative deya Assessment and Plan (1) Unstable angina: Status: Acute Plan 81-year-old female with history of coronary artery disease s/p PCI of the RCA with 2 stents placed, history of exudate of pleural effusion, pulmonary nodules, Kisha's disease, Sjogren syndrome, Raynaud's, s/p bioprosthetic TAVR, mitral valve regurgitation scheduled for replacement following with [place] Vitale [place] [facility] [place], hx atrial fibrillation with cardiac ablation 12/31 not on anticoagulation, essential tremor, and EPI admitted with chest pain, now complicated by afib with rvr chest pain echo unremarkable acs unlikely stress test incomplete due to fatigue/new onset afib paroxysmal afib with rvr dc asa and lovenox, start xarelto, amio 150mg, cardio following Valvular heart disease s/p bioprosthetic TAVR and mitral valve regurgitation Kisha's continue thyroid supplement EPI continue pancreatic enzymes chronic diastolic chf -without acute exacerbation -Continue lasix -echo pending as above CKD stage 3 -renal function baseline. DVT prophaylxis- xarelto Full code reason for continued hospitalization:afib with rvr Time Spent With Patient Time: Total time managing care of this patient today ____ minutes. Quality Stroke Does the patient have a stroke diagnosis?: No VTE Prior VTE?: No VTE Risk Level:: Medical - moderate - high VTE Device Contraindication: Treatment Not Indicated VTE Drug Contraindication: N/A - Med Ordered
[2022-03-26] MEDS: Amiodarone/Dextrose 150 MG/100 ML PLAST..BAG 600 MG IV (12:22)
--- NOTE | 2022-03-26 12:24 | MHC.CM.PN ---
Patient with Afib with RVR and not yet medically cleared for dc; home is the goal and CM will continue to follow.
[2022-03-26] MEDS: Amiodarone HCL 900 MG in 0.9 % Sodium Chloride 500 ML 34.53 MG IVCONT (12:43)
--- NOTE | 2022-03-26 14:33 | PC.NURSE ---
pt A&O x 4, high fall risk -refusing bed alarm, red socks, camera, falling star sign. this nurse explained why these are implemented - pt and family present, verbalizes understanding and still refuses high fall risk precautions. pt stated should i feel fatigue or weak i will ring for you .
[2022-03-26] MEDS: Rivaroxaban 20 MG TABLET PO (17:33)
[2022-03-27] MEDS: Acetaminophen 325 MG TABLET 650 MG PO (01:03)
[2022-03-27 07:16] LABS: Hematocrit 33.2 % (37.0-47.0); Hemoglobin 11.3 g/dl (12.0-16.0); Mean Corpuscular Hemoglobin 29.4 pg (27.0-33.0); Mean Corpuscular Volume 86.2 fL (80.0-98.0); Mean Platelet Volume 10.2 fL (9.4-12.3); Platelet Count 245 X10*3/uL (160-400); Red Blood Count 3.85 X10*6/uL (4.20-5.50); White Blood Count 11.6 X10*3/uL (4.8-10.8)
[2022-03-27 07:20] VITALS: BP 135/60; PULSE 61; RESP 20; TEMP 36.1; O2SAT 98
[2022-03-27 07:37] LABS: Anion Gap 16 (12-20); Blood Urea Nitrogen 28 mg/dL (9-16); Calcium 8.4 mg/dL (8.4-10.2); Carbon Dioxide 24 mmol/L (22-29); Chloride 102 mmol/L (96-108); Creatinine Clr Calc Pharmacy 36.2; Estimated Glomerular Filt Rate 50; Glucose Fasting 104 mg/dL (60-99); Potassium 3.9 mmol/L (3.3-5.1); Sodium 138 mmol/L (135-145)
[2022-03-27] MEDS: Clopidogrel Bisulfate 75 MG TABLET PO (08:47)
[2022-03-27] MEDS: Furosemide 20 MG TABLET 60 MG PO (08:47)
[2022-03-27] MEDS: Thyroid,Pork 30 MG TABLET 60 MG PO (08:47)
[2022-03-27] MEDS: amLODIPine Besylate 5 MG TABLET PO (08:47)
[2022-03-27] MEDS: 0.9 % Sodium Chloride Flush 3 ML SYRINGE IVFLUSH (08:49)
[2022-03-27 11:12] VITALS: BP 132/57; PULSE 63; RESP 20; TEMP 36.3; O2SAT 98
[2022-03-27] MEDS: Lipase/Prot/Amylase 24/76/120K 1 CAP CAPSULE.DR PO (11:54)
--- NOTE | 2022-03-27 13:35 | P.DS_ITS ---
DS: Providers Provider Date of Service: 03/27/22 Date of admission: 03/24/22 21:01 Primary care physician: Deysi Berry MD Consults: 03/24/22 21:00 Consult to Cardiology Routine Consulting Provider: Dev Esquivel Reason for consultation: unstable angina DS: Diagnosis Discharge Diagnosis (1) Chest pain: Status: Acute (2) Atrial fibrillation: Status: Acute (3) CAD (coronary artery disease): Status: Acute (4) Valvular heart disease: Status: Acute DS: Summary Hospital Course Hospital Course: from initial hpi: 81-year-old female with history of coronary artery disease s/p PCI of the RCA with 2 stents placed, history of exudate of pleural effusion, pulmonary nodules, Kisha's disease, Sjogren syndrome, Raynaud's, s/p bioprosthetic TAVR, mitral valve regurgitation scheduled for replacement following with Dr. Vitale at [facility], hx atrial fibrillation with cardiac ablation 12/31 not on anticoagulation, essential tremor, and EPI presented to the ED earlier today accompanied by her son and daughter for evaluation of chest pain.? The patient states for the last week, she has had chills, myalgias, generalized weakness, fatigue, and dyspnea on exertion.? States initially she also had nausea but no vomiting.? States yesterday developed retrosternal chest pressure radiating to the back that has been constant rated as a 6/10. Present at rest and with exertion, worsening. On arrival VSS. Mild leukocytosis 12.8. Renal function, electrolytes baseline, consistent with CKD stage 3.? Initial troponin 74.4, repeat 91.6.? BNP 942.? Negative for COVID-19 and influenza.? Chest x-ray negative.? CTA chest negative for any PE or dissection.? There is also mosaic attenuation of the lower lungs likely reflecting air trapping and perhaps small- vessel disease but no focal prominent area of consolidation.? EKG showing NSR, rate 91 with LVH and repolarization present.? In the ED, patient given 324 mg aspirin, offered morphine but patient declined. hospital course: Patient was admitted for chest pain. Initially started on anticoagulation, was seen by Cardiology, echo performed which showed no regional wall motion abnormality, ACS felt to be unlikely. Underwent attempted stress test, however, this was complicated by paroxysmal atrial fibrillation with rapid ventricular response. Her aspirin was discontinued she was started on Xarelto and amiodarone infusion, she converted to normal sinus rhythm and will continue amiodarone 400 mg daily for 1 week and then 200 mg daily. For valvular heart disease status post bioprosthetic TAVR and mitral valve regurgitation she will follow up in [place]. For Kisha's hypothyroidism she was continued on thyr oid supplement, for chronic pancreatic insufficiency she was continued on pancreatic enzymes. For chronic diastolic CHF she was continued on Lasix. For CKD 3 she remained stable. Patient is feeling better will be discharged home. Time Spent with Patient Time attestation: Total time managing care of this patient today ____ minutes. Discharge coordination time: Greater than 30 minutes Quality: Safe Use of Opioids Does Pt have an Active Cancer Diagnosis on the Problem List?: No Quality: Stroke Does the patient have a stroke diagnosis?: No Physical Exam Vital Signs: Vital Signs: Last Vital Signs Temp 97.3 F 03/27/22 11:12 Pulse 63 03/27/22 11:12 Resp 20 03/27/22 11:12 BP 132/57 L 03/27/22 11:12 Pulse Ox 98 03/27/22 11:12 O2 Del Method 03/27/22 11:12 BMI result Body Mass Index 21.9 General: AO X 3, no acute distress Resp: CTA bilateral, no accessory muscles used CVS: S1,S2,RRR, mrumur GI: soft, non tender, non distended Neuro: motor grossly intact, alert Psych: appropriate affect, appropriate insight DS: Data Data Completed and Pending Labs on day of discharge: Laboratory Results - last 24 hr 03/27/22 03/27/22 07:08 07:08 WBC 11.6 H RBC 3.85 L Hgb 11.3 L Hct 33.2 L MCV 86.2 MCH 29.4 MCHC 34.0 RDW 13.0 Plt Count 245 MPV 10.2 Absolute Nucleated RBC 0.000 Nucleated RBC % (auto) 0.0 Sodium 138 Potassium 3.9 Chloride 102 Carbon Dioxide 24 Anion Gap 16 BUN 28 H Creatinine 1.05 Estim Creat Clear Calc 36.2 Estimated GFR 50 Fasting Glucose 104 H Calcium 8.4 Discharge Plan Discharge Anticipated Discharge Date/Time: 03/27/22 13:31 Patient Disposition: Home, Self-Care Discharge Diagnosis: afib, cehst pain Referrals: Deysi Berry MD [Primary Care Provider] - 1 Week Discharge Medications: New Xarelto 20 mg tablet 20 mg PO DAILY Qty: 30 0RF Rx Instructions: must administer with evening meal amiodarone 200 mg tablet 400 mg PO DAILY Qty: 37 0RF Rx Instructions: amiodarone 400mg daily for one week, then decrease to 200mg daily Continued levocetirizine [Xyzal] 5 mg Tablet 5 mg PO QPM thyroid (pork) [[place] Thyroid] 30 mg tablet 60 mg PO MOWEFR@15 thyroid (pork) [[place] Thyroid] 30 mg tablet 30 mg PO SUTUTHSA@15 thyroid (pork) [[place] Thyroid] 30 mg tablet 60 mg PO DAILY Creon 36,000-114,000- 180,000 unit capsule,delayed release(DR/EC) 1 cap PO TIDWM furosemide 20 mg tablet 60 mg PO DAILY amlodipine 5 mg tablet 5 mg PO DAILY clopidogrel 75 mg tablet 75 mg PO DAILY spironolactone 25 mg tablet 25 mg PO BEDTIME levalbuterol tartrate [Xopenex HFA] 45 mcg/actuation HFA aerosol inhaler 1 puff PO Q4H PRN (Reason: shortness of breath or wheezing) 30 Days Qty: 15 3RF Discontinued aspirin 81 mg tablet,delayed release (DR/EC) 81 mg PO BEDTIME Discharge Orders: Discharge Order (Routine); Ordered 03/27/22 Ordered By: Abner Venegas Diet: Advance to usual diet Activity on Discharge: As tolerated Stand Alone Forms: Patient Portal Discharge page Care Plan Goals: manage afib, MR Health Concerns: afib, MR Plan of Treatment: stop asa, start xarelto and amio, follow up with cardiologists in [place] Assessment: see above
--- NOTE | 2022-03-27 13:59 | MHC.CM.PN ---
Patient has been medically cleared for dc to home today, self care. Last IMM addressed 03/25/2022.
[2022-03-27] MEDS: Thyroid,Pork 30 MG TABLET PO (14:42)
--- NOTE | 2022-03-27 15:13 | PM.PNCARD ---
Subjective Subjective Date of Service: 03/27/22 Principal diagnosis: Chest discomfort Interval history: Seen and examined at bedside. She developed AFib with RVR yesterday she was started on Xarelto and amiodarone drip and has converted back to sinus rhythm. Feeling great today. No fatigue or chest pain. Physical Exam Vital Signs: Last Vital Signs Temp 97.3 F 03/27/22 11:12 Pulse 63 03/27/22 11:12 Resp 20 03/27/22 11:12 BP 132/57 L 03/27/22 11:12 Pulse Ox 98 03/27/22 11:12 O2 Del Method 03/27/22 11:12 BMI result Body Mass Index 21.9 GENERAL APPEARANCE: in no acute distress, pleasant. NECK: no carotid bruit, no jugular venous distention. SKIN: no suspicious lesions, warm and dry. HEART: no murmurs, regular rate and rhythm. LUNGS: clear to auscultation bilaterally. ABDOMEN: soft, nontender. EXTREMITIES: no edema. PERIPHERAL PULSES: equal. NEUROLOGIC: No gross deficits, AAO X 3 Objective Labs and Meds 03/27/22 07:08 03/27/22 07:08 Lab results: Laboratory Results - last 24 hr 03/27/22 03/27/22 07:08 07:08 WBC 11.6 H RBC 3.85 L Hgb 11.3 L Hct 33.2 L MCV 86.2 MCH 29.4 MCHC 34.0 RDW 13.0 Plt Count 245 MPV 10.2 Absolute Nucleated RBC 0.000 Nucleated RBC % (auto) 0.0 Sodium 138 Potassium 3.9 Chloride 102 Carbon Dioxide 24 Anion Gap 16 BUN 28 H Creatinine 1.05 Estim Creat Clear Calc 36.2 Estimated GFR 50 Fasting Glucose 104 H Calcium 8.4 Progress Note: A&P Assessment and plan (1) Atrial fibrillation: Status: Acute (2) Chest pain: Status: Acute Plan Very pleasant 81-year-old female who has history of transcatheter aortic valve replacement, alcohol septal ablation and is currently being considered for valve in [facility] [place] in the mitral position in [place]. She presented with chest pain. Her workup has revealed that this is noncardiac chest discomfort. Developed episode of AFib with RVR. She had no chest discomfort while she was tachycardic. She felt fatigued. She was given amiodarone has converted back to sinus rhythm. She was started on Xarelto and aspirin was stopped. She is back in sinus rhythm at this stage. I have advised her that she should stop the aspirin and only take Plavix and Xarelto. Can go home at 400 mg of amiodarone every day x1 week which can be changed to 200 mg once a day after that. She will continue to follow in [place] for mitral valve disease. 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 Thank you for allowing me to participate in the care of your patient. Please feel free to contact me if you have any questions. Time Spent With Patient Time: Total time managing care of this patient today ____ minutes. Progress Note: Quality Stroke Does the patient have a stroke diagnosis?: No Procedures Date of Service Date of Service: 03/27/22
== END 2022-03-27 15:01 | disposition home or self-care (01) | DRG 309 ==
LOC: HO.ED 20:37 → HO.EDOVER 21:40 → HO.IMC 03-25 08:49
PROVIDERS: Physician Assistant; Admitting Provider Physician Assistant; Emergency Provider Internal Medicine; PCP Internal Medicine; Visit Provider Internal Medicine
DX: I48.0 Paroxysmal atrial fibrillation (principal); I25.110 Atherosclerotic heart disease of native coronary artery with unstable angina pectoris; I50.32 Chronic diastolic (congestive) heart failure; E06.3 Autoimmune thyroiditis; N18.30 Chronic kidney disease, stage 3 unspecified; K86.81 Exocrine pancreatic insufficiency; M35.00 Sjogren syndrome, unspecified; Z20.822 Contact with and (suspected) exposure to COVID-19; Z95.2 Presence of prosthetic heart valve; Z95.5 Presence of coronary angioplasty implant and graft; Z88.8 Allergy status to other drugs, medicaments and biological substances; Z79.01 Long term (current) use of anticoagulants; Z79.02 Long term (current) use of antithrombotics/antiplatelets; Z79.899 Other long term (current) drug therapy
CPT/HCPCS: 36415; 71046; 71275; 80048; 80076; 81001; 81003; 83735; 83880; 84484; 85025; 85027; 85379; 85610; 85730; 87086; 87088; 87186; 87502; 87635; 93005; 93017; 93306; 93356; 99285; J0282; J0283; J1650; Q9957; Q9967

== ENCOUNTER 2022-03-30 09:52 | Emergency (ER) | payer MEDICARE, OTHER, SELFPAY ==
--- NOTE | ~2022-03-30 | US_ITS ---
EXAMINATION: US VENOUS WITH DOPPLER UPPER EXTREMITY, RIGHT CLINICAL INFORMATION: Swelling in the antecubital fossa COMPARISON: None TECHNIQUE: Ultrasound of the upper extremity is performed using compression sonography and color and pulse Doppler flow with assessment of augmentation of flow. There is also imaging and Doppler assessment of the jugular and subclavian veins. Spectral analysis with color-flow imaging is performed. FINDINGS: Respiratory variation, normal compression, and augmented flow are noted throughout the upper extremity deep veins including the axillary, brachial, and radial and ulnar veins. There is normal flow in the internal jugular and subclavian veins. There is occlusive superficial venous thrombus in the right mid to distal cephalic vein at the level of the antecubital fossa. US/US venous duplex UE RT IMPRESSION: Occlusive superficial venous thrombus in the right cephalic vein at the level of the antecubital fossa. No DVT demonstrated in the right upper extremity
[2022-03-30 10:03] VITALS: BP 140/47; PULSE 75; RESP 18; TEMP 36.7; O2SAT 97; BMI 20.6
--- NOTE | 2022-03-30 10:25 | ED.GENADULT ---
HPI - General Adult General Chief complaint: General Medical Stated complaint: r arm infection from IV Time Seen by Provider: 03/30/22 10:23 Source: patient Mode of arrival: ambulatory Limitations: no limitations History of Present Illness HPI narrative: Patient is an 81-year-old female who presents emergency department for evaluation of pain and swelling to her right arm. Patient states that she was discharged from the hospital 4 days ago, her IV access during that time was to the right AC, it was discontinued at the time of discharge without any reported complications such as infiltration/malfunction. She states the following day she developed pain to that area. Today, is when she noticed redness, swelling, increased pain, and warm to the touch. She has subjective weakness to the arm, pain is increased with particular movements, but she does have full range of motion to the elbow. Denies fevers or chills. Denies chest pain, shortness of breath, difficulty breathing. She states that she has been compliant with Xarelto that she was initiated on during her hospital stay. Related Data Home Medications Medication Instructions Recorded Confirmed [id number] 1 cap PO TIDWM 10/03/21 03/24/22 36,000-114,000-180,000 unit capsule,delay rel (Creon) thyroid (pork) 30 mg tablet 60 mg PO DAILY 10/03/21 03/24/22 ([place] Thyroid) amlodipine 5 mg tablet 5 mg PO DAILY 02/27/22 03/24/22 clopidogrel 75 mg tablet 75 mg PO DAILY 02/27/22 03/24/22 furosemide 20 mg tablet 60 mg PO DAILY 02/27/22 03/24/22 spironolactone 25 mg tablet 25 mg PO BEDTIME 02/27/22 03/24/22 levocetirizine 5 mg tablet (Xyzal) 5 mg PO QPM 03/24/22 03/24/22 thyroid (pork) 30 mg tablet 30 mg PO SUTUTHSA@03/24/22 03/24/22 ([place] Thyroid) thyroid (pork) 30 mg tablet 60 mg PO MOWEFR@15 03/24/22 03/24/22 ([place] Thyroid) Previous Rx's Medication Instructions Recorded levalbuterol tartrate 45 1 puff PO Q4H PRN shortness of 02/27/22 mcg/actuation aerosol inhaler breath or wheezing 30 days #15 (Xopenex HFA) grams amiodarone 200 mg tablet 400 mg PO DAILY #37 tabs 03/27/22 rivaroxaban 20 mg tablet (Xarelto) 20 mg PO DAILY #30 tabs 03/27/22 cephalexin 500 mg capsule 500 mg PO QID 7 days #28 caps 03/30/22 Allergies Allergy/AdvReac Type Severity Reaction Status Date / Time epinephrine [Epinephrine] AdvReac Mild VERY SHAKY Verified 03/24/22 17:12 [facility] Past Medical History Medical History (Updated 03/30/22 @ 13:35 by Julissa Duncan CNP) Atelectasis CAD (coronary artery disease) Essential tremor Kisha's thyroiditis History of atrial fibrillation Mitral valve regurgitation Pleural effusion Pulmonary nodules Sjogren's disease Valvular heart disease Surgical History S/P TAVR (transcatheter aortic valve replacement) Social History Social History Household Members: Spouse Housing: House Do you presently have visiting nurse or other home services: No Alcohol intake: current Alcohol intake frequency: holidays/special occasions only Patient Tobacco Use Status: Never used Tobacco Smoked in Last 30 Days: No Advance Directives: Yes Advance Directives Information Provided: Yes Advance Directives on File: No service: No Current occupational status: retired Physical Exam ED Vital Signs: Vital Signs - 24 hr 03/30/22 10:03 Temperature 98.0 F Pulse Rate 75 Respiratory Rate 18 Blood Pressure 140/47 H Pulse Oximetry 97 Oxygen Delivery Method Room Air BMI result Body Mass Index 20.6 Course Reevaluation(s) Reevaluation #1: Ultrasound demonstrates no DVT, there is occlusive superficial venous thrombosis in the right cephalic vein. CBC revealed a mild leukocytosis at 12.0 with left shift, mild normocytic anemia. At this time clinically she is well appearing, nontoxic. She remains afebrile without tachycardia, tachypnea, or hypoxia. She does not meet SIRS criteria, do not suspect sepsis at this time. She is on Xarelto, therefore would avoid NSAIDs, advised ice, compressive dressing, elevation of the extremity, and will cover with cephalexin for possible cellulitis. Reviewed worrisome signs and symptoms that would warrant re-evaluation, advised outpatient follow-up with primary care provider within the next 3-4 days. All questions answered. Time: 13:07 Medications Administered Discontinued Medications Generic Name Dose Route Start Last Admin Trade Name Charisma PRN Reason Stop Dose Admin Piperacillin Sod/Tazobactam 50 mls @ 100 mls/hr 03/30/22 11:00 03/30/22 11:52 Sod 3.375 gm/ Sodium Chloride IV 03/30/22 11:29 Infused ONCE ONE Infusion Medical Decision Making Medical Decision Making [facility] Narrative: Patient is an 81-year-old female with history of coronary artery disease s/p PCI of the RCA with 2 stents placed, history of exudate of pleural effusion, pulmonary nodules, Kisha's disease, Sjogren syndrome, Raynaud's, s/p bioprosthetic TAVR, mitral valve regurgitation scheduled for replacement following with Dr. Vitale at [facility], hx atrial fibrillation with cardiac ablation 12/31 not on anticoagulation, essential tremor, and EPI who presents emergency department for evaluation of swelling and pain to the right arm as reported in HPI. She was admitted inpatient to/, discharged 03/27/2022 for chest pain, paroxysmal atrial fibrillation, initiated on Xarelto and amiodarone. Examination concerning for cellulitis verses thrombophlebitis versus DVT, lower suspicion for septic arthritis at this time she has full AROM to the elbow, no signs of systemic toxicity, she reports she has been compliant with Xarelto, although this was newly initiated for her, will obtain venous duplex to exclude DVT. At this time, will cover with Zosyn IV for cellulitis. She does not meet SIRS criteria, currently not consistent with sepsis. Lab Data [facility] Lab Attestation statement: I reviewed the patient's lab results. 03/30/22 10:59 03/30/22 10:59 Labs: Lab Results 03/30/22 03/30/22 Range/Units 10:59 10:59 WBC 12.0 H (4.8-10.8) X10*3/uL RBC 3.69 L (4.20-5.50) X10*6/uL Hgb 10.9 L (12.0-16.0) g/dl Hct 32.1 L (37.0-47.0) % MCV 87.0 (80.0-98.0) fL MCH 29.5 (27.0-33.0) pg MCHC 34.0 (31.0-35.0) g/dl RDW 12.8 (11.0-16.0) % Plt Count 301 (160-400) X10*3/uL MPV 10.3 (9.4-12.3) fL Immature Gran % (Auto) 0.5 H (0.0-0.4) % Neut % (Auto) 83.2 H (45-73) % Lymph % (Auto) 6.3 L (20-40) % [place] % (Auto) 8.2 (2-11) % Eos % (Auto) 1.3 (0-4) % Baso % (Auto) 0.5 (0-2) % Lymph # (Auto) 0.8 L (1.2-4.9) X10*3/uL [place] # (Auto) 1.0 (0.1-1.2) X10*3/uL Eos # (Auto) 0.2 (0.0-0.4) X10*3/uL Baso # (Auto) 0.1 (0.0-0.2) X10*3/uL Abs Immat Gran (auto) 0.06 H (0.00-0.03) X10*3/uL Absolute Neuts (auto) 10.0 H (2.0-8.3) x10*3/uL Absolute Nucleated RBC 0.000 (0.0-0.012) X10*3/uL Nucleated RBC % (auto) 0.0 (0.0-0.2) /100WBC Sodium 137 (135-145) mmol/L Potassium 4.2 (3.3-5.1) mmol/L Chloride 99 (96-108) mmol/L Carbon Dioxide 26 (22-29) mmol/L Anion Gap 16 (12-20) BUN 24 H (9-16) mg/dL Creatinine 1.14 (0.5-1.4) mg/dL Estim Creat Clear Calc 34.3 Estimated GFR 46 Random Glucose 184 H (60-115) mg/dL Calcium 8.8 (8.4-10.2) mg/dL Total Bilirubin 0.6 (0.0-1.0) mg/dL AST 17 (5-31) U/L ALT 13 (0-31) U/L Alkaline Phosphatase 79 (39-117) U/L Total Protein 6.1 L (6.5-8.0) g/dL Albumin 3.4 L (3.5-5.0) g/dL Independent Interpretation I performed an independent interpretation of an: Ultrasound Radiology Impression Discussion of test interpretation with radiology: I have reviewed the radiologist's reading. Radiologist Impression: US/US venous duplex UE RT IMPRESSION: ? Occlusive superficial venous thrombus in the right cephalic vein at the level of the antecubital fossa. ? No DVT demonstrated in the right upper extremity Discharge Plan Discharge Clinical Impression: Superficial phlebitis Patient Disposition: Home, Self-Care Instructions: Superficial Thrombophlebitis (ED) Additional Instructions: As discussed, the ultrasound does show inflammation to the veins just beneath your skin. This is most likely due to the IV that was in place to this arm. You have been given a course of antibiotics to treat possible associated bacterial infection. Continue taking your Xarelto as prescribed. If you develop fevers, shaking chills, worsening swelling, pain, redness, shortness of breath, difficulty breathing, chest pain, this should be re-evaluated. Additionally, you can apply in warm compresses to the area for 10-15 minutes 3-4 times daily, elevate your arm above the level of your chest when possible, and a lightly wrapped the arm with an Christian bandage to provide mild compression. Contact your primary care provider and arrange for a follow-up visit this week for re-evaluation. Prescriptions: New cephalexin 500 mg capsule 500 mg PO QID 7 Days Qty: 28 0RF No Action levocetirizine [Xyzal] 5 mg Tablet 5 mg PO QPM thyroid (pork) [[place] Thyroid] 30 mg tablet 60 mg PO MOWEFR@15 thyroid (pork) [[place] Thyroid] 30 mg tablet 30 mg PO SUTUTHSA@15 Xarelto 20 mg tablet 20 mg PO DAILY Qty: 30 0RF Rx Instructions: must administer with evening meal amiodarone 200 mg tablet 400 mg PO DAILY Qty: 37 0RF Rx Instructions: amiodarone 400mg daily for one week, then decrease to 200mg daily thyroid (pork) [[place] Thyroid] 30 mg tablet 60 mg PO DAILY Creon 36,000-114,000- 180,000 unit capsule,delayed release(DR/EC) 1 cap PO TIDWM furosemide 20 mg tablet 60 mg PO DAILY amlodipine 5 mg tablet 5 mg PO DAILY clopidogrel 75 mg tablet 75 mg PO DAILY spironolactone 25 mg tablet 25 mg PO BEDTIME levalbuterol tartrate [Xopenex HFA] 45 mcg/actuation HFA aerosol inhaler 1 puff PO Q4H PRN (Reason: shortness of breath or wheezing) 30 Days Qty: 15 3RF Referrals: Deysi Berry MD [Primary Care Provider] - Interventions: ED Discharge Assessment Last Done: 03/30/22 14:40 Discharge Date/Time: 03/30/22 14:41
[2022-03-30 11:05] LABS: MANUAL DIFF FLAG NO
[2022-03-30 11:07] LABS: Basophils Absolute Auto 0.1 X10*3/uL (0.0-0.2); Basophils Percent Auto 0.5 % (0-2); Eosinophils Absolute Auto 0.2 X10*3/uL (0.0-0.4); Eosinophils Percent Auto 1.3 % (0-4); Hematocrit 32.1 % (37.0-47.0); Hemoglobin 10.9 g/dl (12.0-16.0); Imm Gran Abs Auto 0.06 X10*3/uL (0.00-0.03); Imm Gran Pct Auto 0.5 % (0.0-0.4); Lymphocytes Absolute Auto 0.8 X10*3/uL (1.2-4.9); Lymphocytes Percent Auto 6.3 % (20-40); Mean Corpuscular Hemoglobin 29.5 pg (27.0-33.0); Mean Platelet Volume 10.3 fL (9.4-12.3); Monocytes Percent Auto 8.2 % (2-11); Neutrophils Percent Auto 83.2 % (45-73); Platelet Count 301 X10*3/uL (160-400); Red Blood Count 3.69 X10*6/uL (4.20-5.50); Red Cell Distribution Width 12.8 % (11.0-16.0)
[2022-03-30] MEDS: Piperacillin Sodium/Tazobactam 3.375 GM in 0.9 % Sodium Chloride 50 ML IV (11:22)
[2022-03-30 11:40] LABS: Alanine Aminotransferase 13 U/L (0-31); Albumin Level 3.4 g/dL (3.5-5.0); Alkaline Phosphatase 79 U/L (39-117); Anion Gap 16 (12-20); Aspartate Amino Transferase 17 U/L (5-31); Bilirubin Total 0.6 mg/dL (0.0-1.0); Blood Urea Nitrogen 24 mg/dL (9-16); Calcium 8.8 mg/dL (8.4-10.2); Carbon Dioxide 26 mmol/L (22-29); Chloride 99 mmol/L (96-108); Creatinine Clr Calc Pharmacy 34.3; Estimated Glomerular Filt Rate 46; Glucose Random 184 mg/dL (60-115); Potassium 4.2 mmol/L (3.3-5.1); Sodium 137 mmol/L (135-145); Total Protein 6.1 g/dL (6.5-8.0)
== END 2022-03-30 14:41 | disposition home or self-care (01) ==
PROVIDERS: Emergency Provider Emergency Medicine; PCP Internal Medicine
DX: I80.9 Phlebitis and thrombophlebitis of unspecified site (principal); R60.0 Localized edema; M79.601 Pain in right arm; Z79.899 Other long term (current) drug therapy; Z79.01 Long term (current) use of anticoagulants
CPT/HCPCS: 36415; 80053; 85025; 93971; 96365; 99284; J2543

== ENCOUNTER → 2022-04-10 13:44 | Outpatient (BNVA) | payer MEDICARE, OTHER, SELFPAY | PROVIDERS: PCP Internal Medicine; Visit Provider Hospitalist | DX: M35.00 Sjogren syndrome, unspecified (principal) | CPT/HCPCS: 94010; 99211 ==

== ENCOUNTER → 2022-07-30 15:08 | Outpatient (BNVA) | payer MEDICARE, OTHER, SELFPAY | PROVIDERS: PCP Internal Medicine; Referring Provider Internal Medicine; Visit Provider Internal Medicine Cardiovascular Disease | DX: I48.91 Unspecified atrial fibrillation (principal); I38 Endocarditis, valve unspecified; I25.10 Atherosclerotic heart disease of native coronary artery without angina pectoris | CPT/HCPCS: 93005; 99212 ==

== ENCOUNTER 2022-08-21 14:19 | Outpatient (AMB) | payer MEDICARE, OTHER, SELFPAY ==
[2022-08-21 14:31] VITALS: BP 118/60; BMI 21.1
--- NOTE | 2022-08-21 14:31 | A.OFFVIS_ITS ---
Intake Vital Signs 08/21/22 14:31 Height 5 ft 5 in Weight 126 lb 12.253 oz BMI 21.1 BP 118/60 Blood Pressure Location Lt brachial Position Sitting Intake Visit Reasons: auto immune [employer] Required: No Allergies epinephrine [Epinephrine] Adverse Reaction (Mild, Verified 07/30/22 15:36) VERY SHAKY HPI HPI Comments History of Present Illness Details 82-year-old female who is here for follow-up. She was seen in the hospital in March when she presented with chest pain. She has a complex cardiovascular history. She previously underwent has catheter aortic valve replacement in November 2021 and [facility]. Previously that she had cardiac catheterization and it appears she had coronary disease and was treated with drug-eluting stents to the right coronary artery before she went for the transcatheter aortic valve replacement. She also had severe calcific mitral valve disease with moderate to severe mitral valve regurgitation as well as stenosis. While she was at [facility] to develop atrial fibrillation and was started on amiodarone and apixaban. Her Plavix was josefa nued an aspirin was stopped. Subsequent to that she was admitted with infected IV site on the right arm and required antibiotics. She is now status post [place] [facility] which was complicated from her description with a paravalvular leak requiring placement of vascular plug. 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 Will get some records. She is going to cardiac rehabilitation currently. She is very fatigued and tired. She said she spent many days laying in bed and is still recovering. After her discharge from hospital Plavix was stopped. She is taking apixaban only at this point. She is taking torsemide 30 mg b.i.d.. Creatinine was improving as per her own report. She also had a pacemaker placed while she was in the hospital. She is currently paced at 50 beats per minute. 08/21/2022 the patient is here for a pulmonary follow-up visit. She continues to participate in cardiac rehabilitation as she has recovered from her very extensive cardiac interventions in [place]. She is still dealing with the hemolytic anemia issue. She did undergo recent CT scan of her heart and she did bring the report this was that in [place]. It appears that the limited lung windows demonstrate evidence of granulomas in addition to mosaic pattern suggesting small airways disease. The patient currently is not using any inhalers. Will hold off any inhalers at this time specially with all the other comorbidities. She did develop atrial fibrillation. Currently on Eliquis. The patient will return back in the springtime will perform pulmonary function studies and decide at that point if pulmonary respiratory therapy is indicated. In the meantime the patient develops any worsening symptoms prior to the next visit she is to call for an earlier assessment. [facility] Medical History (Updated 08/21/22 @ 23:18 by [place] Auguste MD) Atelectasis CAD (coronary artery disease) Essential tremor Kisha's thyroiditis History of atrial fibrillation Mitral valve regurgitation Pacemaker Pleural effusion Pulmonary nodules Sjogren's disease Valvular heart disease Vasomotor rhinitis Surgical History (Updated 07/30/22 @ 15:41 by ALL Card) H/O mitral valve repair Hx of cardiac cath S/P TAVR (transcatheter aortic valve replacement) Social History Household Members: Spouse Housing: House Do you presently have visiting nurse or other home services: No Alcohol intake: current Alcohol intake frequency: holidays/special occasions only Patient Tobacco Use Status: Never used Tobacco service: No Current occupational status: retired Review of Systems Const Reports fatigue Eyes Denies change in vision ENT Reports change in voice Card Reports dyspnea on exertion Resp Reports dyspnea on exertion GI Reports no additional complaints Musc Reports no additional complaints Skin/Breast Reports alopecia Neuro Reports no additional complaints Endo Reports fatigue Maxime/Lymph Denies easy bleeding, Denies easy bruising and Denies lymphadenopathy Aller/Immun Reports no additional complaints Physical Exam Vital Signs: Last Vital Signs BP 118/60 08/21/22 14:31 BMI result Body Mass Index 21.1 Const General: comfortable HEENT Head: Yes normal to inspection Eyes General: appearance normal, both eyes and all related structures Neck Neck: Yes supple Chest Chest palpation & inspection: normal inspection of the chest Resp Effort & Inspection: normal respiratory effort and able to speak in complete sentences Auscultation: no crackles, no rales and diminished lung sounds Cardio Rate: regular rate Rhythm: regular rhythm Heart sounds: S1 normal heart sound present, S2 normal heart sound present and Murmur heart sound present GI Inspection: No distended Skin General skin exam: no rashes or lesions noted Extrem General: Yes no clubbing, cyanosis or edema Assessment & Plan Assessment & Plan (1) Sjogren's disease: Code(s): M35.00 - Sjogren syndrome, unspecified (2) Shortness of breath: Code(s): R06.02 - Shortness of breath (3) Pulmonary nodules: Code(s): R91.8 - Other nonspecific abnormal finding of lung field (4) Atelectasis: Code(s): J98.11 - Atelectasis (5) Vasomotor rhinitis: Code(s): J30.0 - Vasomotor rhinitis Plan start ipratropium nasal spray as needed continue cardiac rehab PFTs F/U Spring 2023 Orders: Orders PFT pulmonary function test 04/13/23 R06.02 - Shortness of breath Medications: New ipratropium bromide administer into each nostril 2 sprays intranasal TID PRN 15 mL 6RF allergy symptoms Coding Level of Care Code Est Pt Level 4 (90260) Diagnoses Sjogren's disease M35.00 Shortness of breath R06.02 Pulmonary nodules R91.8 Atelectasis J98.11 Vasomotor rhinitis J30.0 Time Spent (min) 19
== END 2022-08-21 15:07 | disposition home or self-care (01) ==
PROVIDERS: PCP Internal Medicine; Visit Provider Hospitalist
DX: M35.00 Sjogren syndrome, unspecified (principal); R06.02 Shortness of breath; R91.8 Other nonspecific abnormal finding of lung field; J98.11 Atelectasis; J30.0 Vasomotor rhinitis
CPT/HCPCS: 99214

== ENCOUNTER → 2022-08-21 14:19 | Outpatient (BNVA) | payer MEDICARE, OTHER, SELFPAY | PROVIDERS: PCP Internal Medicine; Visit Provider Hospitalist | DX: M35.00 Sjogren syndrome, unspecified (principal); J98.11 Atelectasis; J30.0 Vasomotor rhinitis; R06.02 Shortness of breath; R91.8 Other nonspecific abnormal finding of lung field | CPT/HCPCS: 99212 ==

== ENCOUNTER 2022-08-27 09:57 | Emergency (ER) | payer MEDICARE, OTHER, SELFPAY ==
[2022-08-27 10:01] VITALS: BP 132/47; PULSE 52; RESP 18; TEMP 36.6; O2SAT 98; BMI 21.1
--- NOTE | 2022-08-27 11:53 | ED.GENADULT ---
HPI - General Adult General Chief complaint: General Medical Stated complaint: Carotid Infection Sent By [facility] Office Time Seen by Provider: 08/27/22 11:45 Source: patient Mode of arrival: ambulatory Limitations: no limitations History of Present Illness HPI narrative: Patient has Srogrens and has had parotiditis. Patient was started 4 days ago on augmentin. Patient states that it is intermittently swelling. Patient also has had multiple cardiac procedures. Patient having intermittent pain and swelling and feels tired. Onset (ago): day(s) Severity: mild Related Data Home Medications Medication Instructions Recorded Confirmed [id number] 1 cap PO TIDWM 10/03/21 07/30/22 36,000-114,000-180,000 unit capsule,delay rel (Creon) levocetirizine 5 mg tablet (Xyzal) 5 mg PO QPM 03/24/22 07/30/22 apixaban 2.5 mg tablet (Eliquis) 2.5 mg PO BID 07/30/22 07/30/22 furosemide 20 mg tablet 30 mg PO BID 07/30/22 07/30/22 metoprolol tartrate 50 mg tablet 50 mg PO BID 07/30/22 07/30/22 omeprazole 20 mg capsule,delayed 20 mg PO DAILY 07/30/22 07/30/22 release potassium chloride 20 mEq 20 meq PO BID 07/30/22 07/30/22 tablet,extended release(part/cryst) (Klor-Con M) thyroid (pork) 30 mg tablet See Rx Instructions PO .COMPLEX 07/30/22 07/30/22 ([place] Thyroid) torsemide 10 mg tablet 30 mg PO BID 07/30/22 07/30/22 Previous Rx's Medication Instructions Recorded ipratropium bromide 42 mcg (0.06 2 spray intranasal TID PRN allergy 08/21/22 %) nasal spray symptoms #15 mL Allergies Allergy/AdvReac Type Severity Reaction Status Date / Time epinephrine [Epinephrine] AdvReac Mild VERY SHAKY Verified 07/30/22 15:36 Review of Systems Review of Systems: Yes all other systems are reviewed and are negative [facility] Past Medical History Medical History Atelectasis CAD (coronary artery disease) Essential tremor Kisha's thyroiditis History of atrial fibrillation Mitral valve regurgitation Pacemaker Pleural effusion Pulmonary nodules Sjogren's disease Valvular heart disease Vasomotor rhinitis Surgical History H/O mitral valve repair Hx of cardiac cath S/P TAVR (transcatheter aortic valve replacement) Social History Social History Household Members: Spouse Housing: House Do you presently have visiting nurse or other home services: No Alcohol intake: never Patient Tobacco Use Status: Never used Tobacco Smoked in Last 30 Days: No Use of substances other than those prescribed or required for medical reasons: No Advance Directives: No Advance Directives Information Provided: Yes service: No Current occupational status: retired Physical Exam ED Vital Signs: Vital Signs - 24 hr 08/27/22 10:01 08/27/22 14:30 Temperature 97.8 F 98.0 F Pulse Rate 52 52 Respiratory Rate 18 18 Blood Pressure 132/47 L 123/46 L Pulse Oximetry 98 96 Oxygen Delivery Method Room Air Room Air BMI result Body Mass Index 21.1 Const General: healthy appearing Nutritional Appearance: average body habitus Orientation/consciousness: oriented to person and patient oriented x3 Limitations: no limitations HENMT Other: right parotid with slight swelling, tenderness mild no erythema will dc home Head: Yes normal to inspection Ears: external ears normal General nose exam: Normal external nose present Mouth: Normal oral and palatal mucosa present and oropharynx normal Throat: Yes posterior oropharynx normal Eyes General: appearance normal, both eyes and all related structures Neck Neck: Yes normal visual inspection Chest Chest palpation & inspection: normal inspection of the chest Resp Auscultation: clear to auscultation bilaterally Cardio Jugular venous distension: no JVD Rate: regular rate Rhythm: regular rhythm Heart sounds: S1 normal heart sound present and S2 normal heart sound present GI Inspection: Yes normal to inspection Palpation (GI): Soft to palpation, nontender and No hepatosplenomegaly present Auscultation: normal bowel sounds General: Yes no CVA tenderness Back/Spine/Pelvis Back: no CVA tenderness Skin General skin exam: no rashes or lesions noted Neuro General: oriented to person and patient oriented x3 Cranial nerves: Yes CN's II-XII intact bilaterally Motor exam (neuro): 5/5 motor strength present throughout Extrem General: Yes normal to inspection Psych Appearance: grossly normal Course Reevaluation(s) Reevaluation #1: mild evidence of partotiditis will dc home Time: 15:32 Medications Administered Discontinued Medications Generic Name Dose Route Start Last Admin Trade Name Charisma PRN Reason Stop Dose Admin Ampicillin Sodium/Sulbactam 100 mls @ 200 mls/hr 08/27/22 11:58 08/27/22 14:15 Sodium 3 gm/ Sodium Chloride IV 08/27/22 12:27 Infused ONCE ONE Infusion Medical Decision Making Differential Diagnosis Differential Diagnoses: The differential diagnosis associated with the presentation includes (parotiditis, sjorgens syndrome, dry mouth) Lab Data MDM Lab Attestation statement: I reviewed the patient's lab results. (No elevated WBC, renal insufficiency) 08/27/22 13:01 08/27/22 13:01 Labs: Lab Results 08/27/22 08/27/22 Range/Units 13:01 13:01 WBC 8.2 (4.8-10.8) X10*3/uL RBC 3.92 L (4.20-5.50) X10*6/uL Hgb 12.0 (12.0-16.0) g/dl Hct 37.0 (37.0-47.0) % MCV 94.4 (80.0-98.0) fL MCH 30.6 (27.0-33.0) pg MCHC 32.4 (31.0-35.0) g/dl RDW 13.7 (11.0-16.0) % Plt Count 162 D (160-400) X10*3/uL MPV 10.4 (9.4-12.3) fL Immature Gran % (Auto) 0.2 (0.0-0.4) % Neut % (Auto) 71.6 (45-73) % Lymph % (Auto) 13.0 L (20-40) % [place] % (Auto) 10.8 (2-11) % Eos % (Auto) 3.8 (0-4) % Baso % (Auto) 0.6 (0-2) % Lymph # (Auto) 1.1 L (1.2-4.9) X10*3/uL [place] # (Auto) 0.9 (0.1-1.2) X10*3/uL Eos # (Auto) 0.3 (0.0-0.4) X10*3/uL Baso # (Auto) 0.1 (0.0-0.2) X10*3/uL Abs Immat Gran (auto) 0.02 (0.00-0.03) X10*3/uL Absolute Neuts (auto) 5.9 (2.0-8.3) x10*3/uL Absolute Nucleated RBC 0.000 (0.0-0.012) X10*3/uL Nucleated RBC % (auto) 0.0 (0.0-0.2) /100WBC Sodium 140 (135-145) mmol/L Potassium 4.5 (3.3-5.1) mmol/L Chloride 102 (96-108) mmol/L Anion Gap TNP BUN 48 H (9-16) mg/dL Creatinine 1.48 H (0.5-1.4) mg/dL Estim Creat Clear Calc 25.2 Estimated GFR 34 Random Glucose 95 (60-115) mg/dL Calcium 9.4 D (8.4-10.2) mg/dL Tests considered The following testing was considered but not selected: CT of head and neck but patient afebrile no WBC elevation no erythema Prescription Management I considered prescription management with: Antibiotic (will continue current medication) Chronic Conditions Patient?s care impacted by: Other (collagen vascular disease) Discharge Plan Discharge Clinical Impression: Sjogren's disease, Acute parotitis Patient Disposition: Home, Self-Care Instructions: Sialoadenitis (ED) Additional Instructions: must have lemon drops and butter scotch candies frequently Prescriptions: No Action levocetirizine [Xyzal] 5 mg Tablet 5 mg PO QPM [place] Thyroid 30 mg tablet See Rx Instructions PO .COMPLEX Rx Instructions: 60 mg AM, 30mg PM orally; Creon 36,000-114,000- 180,000 unit capsule,delayed release(DR/EC) 1 cap PO TIDWM furosemide 20 mg tablet 30 mg PO BID ipratropium bromide 42 mcg (0.06 %) spray,non-aerosol 2 spray intranasal TID PRN (Reason: allergy symptoms) Qty: 15 6RF Rx Instructions: administer into each nostril metoprolol tartrate 50 mg tablet 50 mg PO BID torsemide 10 mg tablet 30 mg PO BID potassium chloride [Klor-Con M20] 20 mEq tablet,ER particles/crystals 20 meq PO BID omeprazole 20 mg capsule,delayed release(DR/EC) 20 mg PO DAILY Eliquis 2.5 mg tablet 2.5 mg PO BID Referrals: Deysi Berry MD [Primary Care Provider] - 5 days
[2022-08-27] MEDS: Ampicillin Sodium/Sulbactam Na 3 GM in 0.9 % Sodium Chloride 100 ML IV (13:04)
[2022-08-27 13:05] LABS: MANUAL DIFF FLAG NO
[2022-08-27 13:07] LABS: Basophils Absolute Auto 0.1 X10*3/uL (0.0-0.2); Basophils Percent Auto 0.6 % (0-2); Eosinophils Absolute Auto 0.3 X10*3/uL (0.0-0.4); Eosinophils Percent Auto 3.8 % (0-4); Imm Gran Abs Auto 0.02 X10*3/uL (0.00-0.03); Imm Gran Pct Auto 0.2 % (0.0-0.4); Lymphocytes Absolute Auto 1.1 X10*3/uL (1.2-4.9); Mean Corpuscular HGB Conc 32.4 g/dl (31.0-35.0); Mean Corpuscular Hemoglobin 30.6 pg (27.0-33.0); Mean Corpuscular Volume 94.4 fL (80.0-98.0); Mean Platelet Volume 10.4 fL (9.4-12.3); Monocytes Absolute Auto 0.9 X10*3/uL (0.1-1.2); Monocytes Percent Auto 10.8 % (2-11); Neutrophils Absolute Auto 5.9 x10*3/uL (2.0-8.3); Neutrophils Percent Auto 71.6 % (45-73); Platelet Count 162 X10*3/uL (160-400); Red Blood Count 3.92 X10*6/uL (4.20-5.50); Red Cell Distribution Width 13.7 % (11.0-16.0); White Blood Count 8.2 X10*3/uL (4.8-10.8)
--- NOTE | 2022-08-27 14:06 | PC.NURSE ---
Patient resting on stretcher calm and cooperatively. Patient is alert and oriented, able to answer all questions without issue. IV antibiotics infusing at this time.
[2022-08-27 14:17] LABS: Blood Urea Nitrogen 48 mg/dL (9-16); Calcium 9.4 mg/dL (8.4-10.2); Chloride 102 mmol/L (96-108); Creatinine Clr Calc Pharmacy 25.2; Estimated Glomerular Filt Rate 34; Glucose Random 95 mg/dL (60-115); Potassium 4.5 mmol/L (3.3-5.1); Sodium 140 mmol/L (135-145)
[2022-08-27 14:30] VITALS: BP 123/46; PULSE 52; RESP 18; TEMP 36.7; O2SAT 96
--- NOTE | 2022-08-27 15:32 | PC.NURSE ---
IV antibiotics finished and patient wanting to go home at this time. Provider made aware and will speak with patient.
[2022-08-27 15:51] VITALS: BP 136/55; PULSE 54; RESP 17; O2SAT 96
[2022-08-27 18:28] LABS: Carbon Dioxide 26 mmol/L (22-29)
== END 2022-08-27 15:57 | disposition home or self-care (01) ==
PROVIDERS: Emergency Provider Emergency Medicine; PCP Internal Medicine
DX: M35.00 Sjogren syndrome, unspecified (principal); K11.21 Acute sialoadenitis; I48.91 Unspecified atrial fibrillation; Z95.0 Presence of cardiac pacemaker; Z79.01 Long term (current) use of anticoagulants; Z79.899 Other long term (current) drug therapy
CPT/HCPCS: 36415; 80048; 85025; 96365; 99284; J0295

== ENCOUNTER 2022-12-03 15:16 | Outpatient (AMB) | payer MEDICARE, OTHER, SELFPAY ==
[2022-12-03 15:22] VITALS: BP 126/64; PULSE 60; BMI 20.7
--- NOTE | 2022-12-03 15:22 | MHC.OFFVIS ---
Intake Vital Signs 12/03/22 15:22 Height 5 ft 4 in Weight 120 lb 13.013 oz BMI 20.7 BP 126/64 Blood Pressure Location Lt brachial Position Sitting Pulse 60 Intake Visit Reasons: 4 mth f/up records 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 Accompanied by: Self / Same As Patient Allergies epinephrine [Epinephrine] Adverse Reaction (Mild, Verified 07/30/22 15:36) VERY SHAKY Medication List - Last Reconciled 12/03/22 by Dev Esquivel MD apixaban (Eliquis) 2.5 mg PO BID ipratropium bromide 2 sprays intranasal TID PRN levocetirizine (Xyzal) 5 mg PO QPM [id number]-tefbckc 36,000-114,000- 180,000 unit (Creon) 1 cap PO TIDWM potassium chloride ER (Klor-Con M) 20 mEq PO BID thyroid (pork) ([place] Thyroid) 60 mg AM, 30mg PM orally; torsemide 30 mg PO BID verapamil ER 120 mg PO DAILY HPI HPI Comments History of Present Illness Details 82-year-old female who is here for follow-up. She was seen in the hospital in March when she presented with chest pain. She has a complex cardiovascular history. She previously underwent has catheter aortic valve replacement in November 2021 and [facility]. Previously that she had cardiac catheterization and it appears she had coronary disease and was treated with drug-eluting stents to the right coronary artery before she went for the transcatheter aortic valve replacement. She also had severe calcific mitral valve disease with moderate to severe mitral valve regurgitation as well as stenosis. While she was at [facility] to develop atrial fibrillation and was started on amiodarone and apixaban. Her Plavix was continued an aspirin was stopped. Subsequent to that she was admitted with infected IV site on the right arm and required antibiotics. She is now status post valve in [facility] which was complicated from her description with a paravalvular leak requiring placement of vascular plug. 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 Will get some records. She is going to cardiac rehabilitation currently. She is very fatigued and tired. She said she spent many days laying in bed and is still recovering. After her discharge from hospital Plavix was stopped. She is taking apixaban only at this point. She is taking torsemide 30 mg b.i.d.. Creatinine was improving as per her own report. She also had a pacemaker placed while she was in the hospital. She is currently paced at 50 beats per minute. 12/03/22: She is here for f/u. She has been doing well. She is doing cardiac rehab and has been improving. No CP or SOB. Taking eliquis. [facility] Medical History Atelectasis CAD (coronary artery disease) Essential tremor Kisha's thyroiditis History of atrial fibrillation Mitral valve regurgitation Pacemaker Pleural effusion Pulmonary nodules Sjogren's disease Valvular heart disease Vasomotor rhinitis Surgical History Hx of cardiac cath H/O mitral valve repair S/P TAVR (transcatheter aortic valve replacement) Social History Household Members: Spouse Housing: House Do you presently have visiting nurse or other home services: No Alcohol intake: never Patient Tobacco Use Status: Never used Tobacco service: No Current occupational status: retired Review of Systems Const Denies weakness ENT Denies dizziness Card Denies chest pain, Denies chest pain with activity, Denies syncope, Denies rapid heart rate, Denies pedal edema, Denies edema, Denies leg edema, Denies lightheadedness, Denies palpitations, Denies dyspnea, Denies dyspnea on exertion and Denies orthopnea Resp Denies cough, Denies dyspnea and Denies dyspnea on exertion GI Denies hematochezia and Denies change in stool character Musc Denies abnormal gait, Denies muscle cramps, Denies muscle weakness, Denies numbness, Denies radiating pain into limb and Denies tingling Neuro Denies abnormal gait, Denies dizziness, Denies syncope, Denies numbness, Denies tingling and Denies weakness Endo Denies palpitations Physical Exam Vital Signs: Last Vital Signs Pulse 60 12/03/22 15:22 BP 126/64 12/03/22 15:22 BMI result Body Mass Index 20.7 GENERAL APPEARANCE: in no acute distress, pleasant. NECK: no carotid bruit, no jugular venous distention. SKIN: no suspicious lesions, warm and dry. HEART: Systolic murmur aortic area, holosystolic murmur left parasternal border and apex. LUNGS: clear to auscultation bilaterally. ABDOMEN: soft, nontender. EXTREMITIES: no edema. PERIPHERAL PULSES: equal. NEUROLOGIC: No gross deficits, AAO X 3 Assessment & Plan Assessment & Plan (1) Atrial fibrillation: Code(s): I48.91 - Unspecified atrial fibrillation (2) Valvular heart disease: Comment: s/p TAVR and TMVR. Code(s): I38 - Endocarditis, valve unspecified Plan 82-year-old here for f/u. She is doing well. She is doing cardiac rehab. She has elevated lp (a) and was advised at [facility] [place] pral[place]. She has statin intolerance. I have told her to have discussion with her physician at [facility] further. In my opinion, lp (a) lowering with Praluent is still controversial specially in her age group. From statin intolerance view point she can use PCSK9 inhibitor. c/w Apixaban. Coding Level of Care Code Est Pt Level 4 (31624) Diagnoses Atrial fibrillation I48.91 Valvular heart disease I38
== END 2022-12-03 16:05 | disposition home or self-care (01) ==
PROVIDERS: PCP Internal Medicine; Visit Provider Internal Medicine Cardiovascular Disease
DX: I48.91 Unspecified atrial fibrillation (principal); I38 Endocarditis, valve unspecified
CPT/HCPCS: 99214

== ENCOUNTER → 2022-12-03 15:16 | Outpatient (BNVA) | payer MEDICARE, OTHER, SELFPAY | PROVIDERS: PCP Internal Medicine; Visit Provider Internal Medicine Cardiovascular Disease | DX: I48.91 Unspecified atrial fibrillation (principal); I38 Endocarditis, valve unspecified | CPT/HCPCS: 99212 ==

== ENCOUNTER 2023-04-10 11:00 | Outpatient (REF) | payer MEDICARE, OTHER, SELFPAY ==
[2023-04-10 11:53] VITALS: PULSE 68; RESP 16; O2SAT 100
--- NOTE | 2023-04-10 13:22 | PFT_ITS ---
Flows: FEV1: 101 % of predicted at 1.95 L FVC: 90 % of predicted at 2.29 L FEV1/FVC: 85 % Bronchodilator response: Absent Volumes: No lung volume measurements available secondary to a technical issue. Diffusion capacity: Mildly decreased. Impression: No obstructive ventilatory defect. No bronchodilator response. Isolated defect in diffusion capacity suggests pulmonary edema. Clinical correlation is advised. MTDD
== END 2023-04-10 11:01 | disposition home or self-care (01) ==
LOC: HO.RESP 11:00
PROVIDERS: PCP Internal Medicine; Visit Provider Hospitalist
DX: R06.02 Shortness of breath (principal)
CPT/HCPCS: 94010; 94640; 94727; 94729

== ENCOUNTER → 2023-04-10 13:22 | Outpatient (BNV) | payer MEDICARE, OTHER, SELFPAY | PROVIDERS: PCP Internal Medicine; Visit Provider Internal Medicine Pulmonary Disease | DX: J44.9 Chronic obstructive pulmonary disease, unspecified (principal) | CPT/HCPCS: 94060; 94729 ==

== ENCOUNTER 2023-04-16 14:11 | Outpatient (AMB) | payer MEDICARE, OTHER, SELFPAY ==
--- NOTE | 2023-04-16 14:21 | A.OFFVIS_ITS ---
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 She was seen in the hospital in March when she presented with chest pain. She has a complex cardiovascular history. She previously underwent has catheter aortic valve replacement in November 2021 and [facility]. Previously that she had cardiac catheterization and it appears she had coronary disease and was treated with drug-eluting stents to the right coronary artery before she went for the transcatheter aortic valve replacement. She also had severe calcific mitral valve disease with moderate to severe mitral valve regurgitation as well as stenosis. While she was at [facility] to develop atrial fibrillation and was started on amiodarone and apixaban. Her Plavix was continued an aspirin was stopped. Subsequent to that she was admitted with infected IV site on the right arm and required antibiotics. She is now status post valve in [facility] which was complicated from her description with a paravalvular leak requiring placement of vascular plug. 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 Will get some records. She is going to cardiac rehabilitation currently. She is very fatigued and tired. She said she spent many days laying in bed and is still recovering. After her discharge from hospital Plavix was stopped. She is taking apixaban only at this point. She is taking torsemide 30 mg b.i.d.. Creatinine was improving as per her own report. She also had a pacemaker placed while she was in the hospital. She is currently paced at 50 beats per minute. 08/21/2022 the patient is here for a pulmonary follow-up visit. She continues to participate in cardiac rehabilitation as she has recovered from her very extensive cardiac interventions in [place]. She is still dealing with the hemolytic anemia issue. She did undergo recent CT scan of her heart and she did bring the report this was that in [place]. It appears that the limited lung windows demonstrate evidence of granulomas in addition to mosaic pattern s uggesting small airways disease. The patient currently is not using any inhalers. Will hold off any inhalers at this time specially with all the other comorbidities. She did develop atrial fibrillation. Currently on Eliquis. The patient will return back in the springtime will perform pulmonary function studies and decide at that point if pulmonary respiratory therapy is indicated. In the meantime the patient develops any worsening symptoms prior to the next visit she is to call for an earlier assessment. 04/16/2023 the patient is here for a pulmonary follow-up visit. She is recovering from her cardiac surgeries and complications. She is tolerating the blood thinners. She is continuing to exercise regularly. Has not been using any respiratory inhalers at this time. She is having imaging study in [facility] where she had her surgery and will request copies of her CT scans. In the meantime she did have pulmonary function studies % personally reviewed. For some reason the lung volumes were not able to be measured. Still it appears that her diffusing capacity is moderately decreased. And slightly better when compared to her previous. Clinically she is doing well from a respiratory status and does not require any additional therapies. In view of her ongoing medical issues that will follow-up in a year's time. If the patient has any worsening symptoms prior to that she can always call for an earlier assessment. [facility] Medical History Atelectasis CAD (coronary artery disease) Essential tremor Kisha's thyroiditis History of atrial fibrillation Mitral valve regurgitation Pacemaker Pleural effusion Pulmonary nodules Sjogren's disease Valvular heart disease Vasomotor rhinitis Surgical History Hx of cardiac cath H/O mitral valve repair S/P TAVR (transcatheter aortic valve replacement) Social History Household Members: Spouse Housing: House Do you presently have visiting nurse or other home services: No Alcohol intake: never Patient Tobacco Use Status: Never used Tobacco service: No Current occupational status: retired Review of Systems Const Reports fatigue Eyes Denies change in vision ENT Reports change in voice Card Reports dyspnea on exertion Resp Reports dyspnea on exertion GI Reports no additional complaints Musc Reports no additional complaints Skin/Breast Reports alopecia Neuro Reports no additional complaints Endo Reports fatigue Maxime/Lymph Denies easy bleeding, Denies easy bruising and Denies lymphadenopathy Aller/Immun Reports no additional complaints Physical Exam Vital Signs: Last Vital Signs Pulse 68 04/16/23 14:22 Pulse Ox 97 04/16/23 14:22 Oxygen Delivery Method Room Air 04/16/23 14:22 BMI result Body Mass Index 20.3 Const General: comfortable HEENT Head: Yes normal to inspection Eyes General: appearance normal, both eyes and all related structures Neck Neck: Yes supple Chest Chest palpation & inspection: normal inspection of the chest Resp Effort & Inspection: normal respiratory effort and able to speak in complete sentences Auscultation: no crackles, no rales and diminished lung sounds Cardio Rate: regular rate Rhythm: regular rhythm Heart sounds: S1 normal heart sound present, S2 normal heart sound present and Murmur heart sound present GI Inspection: No distended Skin General skin exam: no rashes or lesions noted Extrem General: Yes no clubbing, cyanosis or edema Assessment & Plan Assessment & Plan (1) Sjogren's disease: Code(s): M35.00 - Sjogren syndrome, unspecified Qualifiers: Sjogren organ or system involvement: without extraglandular involvement Qualified Code(s): M35.00 - Sjogren syndrome, unspecified (2) Shortness of breath: Code(s): R06.02 - Shortness of breath (3) Pulmonary nodules: Code(s): R91.8 - Other nonspecific abnormal finding of lung field (4) Atelectasis: Code(s): J98.11 - Atelectasis (5) Vasomotor rhinitis: Code(s): J30.0 - Vasomotor rhinitis Plan ipratropium nasal spray as needed continue cardiac rehab F/U 1 yr Coding Level of Care Code Est Pt Level 4 (44307) Diagnoses Sjogren's syndrome without extraglandular involvement M35.00 Sjogren organ or system involvement: without extraglandular involvement Shortness of breath R06.02 Pulmonary nodules R91.8 Atelectasis J98.11 Vasomotor rhinitis J30.0 Time Spent (min) 17
[2023-04-16 14:22] VITALS: PULSE 68; O2SAT 97; BMI 20.3
== END 2023-04-16 14:45 | disposition home or self-care (01) ==
PROVIDERS: PCP Internal Medicine; Visit Provider Hospitalist
DX: M35.00 Sjogren syndrome, unspecified (principal); R06.02 Shortness of breath; R91.8 Other nonspecific abnormal finding of lung field; J98.11 Atelectasis; J30.0 Vasomotor rhinitis
CPT/HCPCS: 99214

== ENCOUNTER → 2023-04-16 14:11 | Outpatient (BNVA) | payer MEDICARE, OTHER, SELFPAY | PROVIDERS: PCP Internal Medicine; Visit Provider Hospitalist | DX: M35.00 Sjogren syndrome, unspecified (principal); R06.02 Shortness of breath; R91.8 Other nonspecific abnormal finding of lung field; J98.11 Atelectasis; J30.0 Vasomotor rhinitis | CPT/HCPCS: 99212 ==

== ENCOUNTER 2023-06-08 15:11 | Outpatient (AMB) | payer MEDICARE, OTHER, SELFPAY ==
[2023-06-08 15:13] VITALS: BP 130/62; PULSE 67; BMI 20.8
--- NOTE | 2023-06-08 15:13 | MHC.OFFVIS ---
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 Accompanied by: Self / Same As Patient Allergies epinephrine [Epinephrine] Adverse Reaction (Mild, Verified 04/16/23 14:23) VERY SHAKY Medication List - Last Reconciled 06/08/23 by Dev Esquivel MD apixaban (Eliquis) 2.5 mg PO BID ipratropium bromide 2 sprays intranasal TID PRN levocetirizine (Xyzal) 5 mg PO QPM [id number] 36,000-114,000- 180,000 unit (Creon) 1 cap PO TIDWM potassium chloride ER (Klor-Con M) 20 mEq PO BID thyroid (pork) ([place] Thyroid) 60 mg AM, 30mg PM orally; torsemide 20 mg PO BID verapamil ER 120 mg PO DAILY HPI Comments Details: 83-year-old female who is here for follow-up. She was seen in the hospital in March when she presented with chest pain. She has a complex cardiovascular history. She previously underwent has catheter aortic valve replacement in November 2021 and [facility]. Previously that she had cardiac catheterization and it appears she had coronary disease and was treated with drug-eluting stents to the right coronary artery before she went for the transcatheter aortic valve replacement. She also had severe calcific mitral valve disease with moderate to severe mitral valve regurgitation as well as stenosis. While she was at [facility] to develop atrial fibrillation and was started on amiodarone and apixaban. Her Plavix was continued an aspirin was stopped. Subsequent to that she was admitted with infected IV site on the right arm and required antibiotics. She is now status post valve in [facility] which was complicated from her description with a paravalvular leak requiring placement of vascular plug. 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 Will get some records. She is going to cardiac rehabilitation currently. She is very fatigued and tired. She said she spent many days laying in bed and is still recovering. After her discharge from hospital Plavix was stopped. She is taking apixaban only at this point. She is taking torsemide 30 mg b.i.d.. Creatinine was improving as per her own report. She also had a pacemaker placed while she was in the hospital. She is currently paced at 50 beats per minute. 12/03/22: She is here for f/u. She has been doing well. She is doing cardiac rehab and has been improving. No CP or SOB. Taking eliquis. 06/08/23: She returns for follow-up. She said she had Sjogren's syndrome before and had parotid swelling and recently had swelling on the right side of her face and has been taking amoxicillin since then. She is feeling tired. Denying any chest pain or shortness of breath. She has a reimbursement spec that she follows with in [place]. She is cutting back on diuretics as per recommendations and discussion with her county surveyor in [place]. [facility] Medical History Atelectasis CAD (coronary artery disease) Essential tremor Kisha's thyroiditis History of atrial fibrillation Mitral valve regurgitation Pacemaker Pleural effusion Pulmonary nodules Sjogren's disease Valvular heart disease Vasomotor rhinitis Surgical History Hx of cardiac cath H/O mitral valve repair S/P TAVR (transcatheter aortic valve replacement) Social History Household Members: Spouse Housing: House Do you presently have visiting nurse or other home services: No Alcohol intake: never Patient Tobacco Use Status: Never used Tobacco service: No Current occupational status: retired Review of Systems Const Denies chills, Denies fatigue, Denies fever(s), Denies frequent falls, Denies weakness, Denies weight gain and Denies weight loss ENT Denies dizziness Card Denies chest pain, Denies leg edema, Denies lightheadedness, Denies palpitations, Denies dyspnea and Denies dyspnea on exertion Resp Denies cough, Denies dyspnea and Denies dyspnea on exertion GI Denies hematochezia Musc Denies abnormal gait, Denies muscle weakness, Denies numbness, Denies radiating pain into limb and Denies tingling Neuro Denies abnormal gait, Denies dizziness, Denies frequent falls, Denies numbness, Denies tingling and Denies weakness Endo Denies fatigue and Denies palpitations Physical Exam Vital Signs: Last Vital Signs Pulse 67 06/08/23 15:13 BP 130/62 06/08/23 15:13 BMI result Body Mass Index 20.8 GENERAL APPEARANCE: in no acute distress, pleasant. NECK: no carotid bruit, no jugular venous distention. SKIN: no suspicious lesions, warm and dry. HEART: Systolic murmur aortic area, no significant holosystolic murmur on exam today. LUNGS: clear to auscultation bilaterally. ABDOMEN: soft, nontender. EXTREMITIES: no edema. PERIPHERAL PULSES: equal. NEUROLOGIC: No gross deficits, AAO X 3 Assessment & Plan Assessment & Plan (1) Atrial fibrillation: Code(s): I48.91 - Unspecified atrial fibrillation Category: Medical (2) CAD (coronary artery disease): Comment: s/p PCI RCA x 2 stents Code(s): I25.10 - Atherosclerotic heart disease of [place] coronary artery without angina pectoris Category: Medical (3) Valvular heart disease: Comment: s/p TAVR and TMVR. Code(s): I38 - Endocarditis, valve unspecified Category: Medical Plan Pleasant 83-year-old female who is here for follow-up. She has complex valvular disease history and underwent transcatheter aortic valve replacement and the MVR. She has done well since then. Clinically she appears to be euvolemic. She is cutting back on her diuretics and continues to have fairly stable weight. No anginal symptoms. On Eliquis 2.5 mg twice a day. Blood pressure well controlled. Follow-up in few months. Thank you for allowing me to participate in the care of your patient. Please feel free to contact me if you have any questions. Coding Level of Care Code Est Pt Level 4 (18921) Diagnoses Atrial fibrillation I48.91 CAD (coronary artery disease) I25.10 Valvular heart disease I38
== END 2023-06-08 15:45 | disposition home or self-care (01) ==
PROVIDERS: PCP Internal Medicine; Visit Provider Internal Medicine Cardiovascular Disease
DX: I48.91 Unspecified atrial fibrillation (principal); I25.10 Atherosclerotic heart disease of native coronary artery without angina pectoris; I38 Endocarditis, valve unspecified
CPT/HCPCS: 99214

== ENCOUNTER → 2023-06-08 15:11 | Outpatient (BNVA) | payer MEDICARE, OTHER, SELFPAY | PROVIDERS: PCP Internal Medicine; Visit Provider Internal Medicine Cardiovascular Disease ==

== ENCOUNTER 2023-11-16 15:14 | Outpatient (AMB) | payer MEDICARE, OTHER, SELFPAY ==
[2023-11-16 15:17] VITALS: BP 130/64; PULSE 69; BMI 21.2
--- NOTE | 2023-11-16 15:17 | MHC.OFFVIS ---
Vital Signs 11/16/23 15:17 Height 5 ft 4 in Weight 123 lb 7.342 oz BMI 21.2 BP 130/64 Blood Pressure Location Rt brachial Position Sitting Pulse 69 Pulse Source Monitor Intake Visit Reasons: 6 mth f/up Intake Note: 6 mth f/up- pt was in [facility] ed over the weekend. Tiler'S Assistant Required: No Accompanied by: Self / Same As Patient Allergies epinephrine [Epinephrine] Adverse Reaction (Mild, Verified 04/16/23 14:23) VERY SHAKY Medication List - Last Reconciled 11/16/23 by Dev Esquivel MD aspirin 81 mg PO DAILY furosemide 20 mg PO DAILY ipratropium bromide 2 sprays intranasal TID PRN levocetirizine (Xyzal) 5 mg PO QPM [id number]-fhwcnmky-ovvbaom 36,000-114,000- 180,000 unit (Creon) 1 cap PO TIDWM potassium chloride ER (Klor-Con M) 20 mEq PO BID thyroid (pork) ([place] Thyroid) 60 mg AM, 30mg PM orally; verapamil ER 120 mg PO DAILY HPI Comments Details: 83-year-old female who is here for follow-up. She was seen in the hospital in March when she presented with chest pain. She has a complex cardiovascular history. She previously underwent has catheter aortic valve replacement in November 2021 and [facility]. Previously that she had cardiac catheterization and it appears she had coronary disease and was treated with drug-eluting stents to the right coronary artery before she went for the transcatheter aortic valve replacement. She also had severe calcific mitral valve disease with moderate to severe mitral valve regurgitation as well as stenosis. While she was at [facility] to develop atrial fibrillation and was started on amiodarone and apixaban. Her Plavix was continued an aspirin was stopped. Subsequent to that she was admitted with infected IV site on the right arm and required antibiotics. She is now status post valve in [facility] which was complicated from her description with a paravalvular leak requiring placement of vascular plug. 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 Will get some records. She is going to cardiac rehabilitation currently. She is very fatigued and tired. She said she spent many days laying in bed and is still recovering. After her discharge from hospital Plavix was stopped. She is taking apixaban only at this point. She is taking torsemide 30 mg b.i.d.. Creatinine was improving as per her own report. She also had a pacemaker placed while she was in the hospital. She is currently paced at 50 beats per minute. 12/03/22: She is here for f/u. She has been doing well. She is doing cardiac rehab and has been improving. No CP or SOB. Taking eliquis. 06/08/23: She returns for follow-up. She said she had Sjogren's syndrome before and had parotid swelling and recently had swelling on the right side of her face and has been taking amoxicillin since then. She is feeling tired. Denying any chest pain or shortness of breath. 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 She is cutting back on diuretics as per recommendations and discussion with her stove bottom worker in [place]. 11/16/2023: She is here for follow-up. She just got discharged from [facility] after rectal bleeding. She had initial presentation to [facility] couple of days ago when she started passing bright red blood per rectum. She went there and had CT scan performed which showed active bleeding in the sigmoid. Eliquis and aspirin was stopped and she was transferred to [facility] for potential IR guided embolization but the bleeding stopped on his own. After discussion with GI it was decided that no colonoscopy should be done currently. She was advised to resume aspirin on discharge which she has started taking. She is feeling little tired since he left the hospital. She is saying she was advised also to hold her diuretics too. [facility] Medical History Atelectasis CAD (coronary artery disease) Essential tremor Kisha's thyroiditis History of atrial fibrillation Mitral valve regurgitation Pacemaker Pleural effusion Pulmonary nodules Sjogren's disease Valvular heart disease Vasomotor rhinitis Surgical History Hx of cardiac cath H/O mitral valve repair S/P TAVR (transcatheter aortic valve replacement) Social History Household Members: Spouse Housing: House Do you presently have visiting nurse or other home services: No Alcohol intake: never Patient Tobacco Use Status: Never used Tobacco service: No Current occupational status: retired Review of Systems Const Denies chills, Denies fatigue, Denies fever(s), Denies frequent falls, Denies weakness, Denies weight gain and Denies weight loss ENT Denies dizziness Card Denies chest pain, Denies leg edema, Denies lightheadedness, Denies palpitations, Denies dyspnea and Denies dyspnea on exertion Resp Denies cough, Denies dyspnea and Denies dyspnea on exertion GI Denies hematochezia Musc Denies abnormal gait, Denies muscle weakness, Denies numbness, Denies radiating pain into limb and Denies tingling Neuro Denies abnormal gait, Denies dizziness, Denies frequent falls, Denies numbness, Denies tingling and Denies weakness Endo Denies fatigue and Denies palpitations Physical Exam Vital Signs: Last Vital Signs Pulse 69 11/16/23 15:17 BP 130/64 11/16/23 15:17 BMI result Body Mass Index 21.2 GENERAL APPEARANCE: in no acute distress, pleasant. NECK: no carotid bruit, no jugular venous distention. SKIN: no suspicious lesions, warm and dry. HEART: Systolic murmur aortic area, regular rate and rhythm. LUNGS: clear to auscultation bilaterally. ABDOMEN: soft, nontender. EXTREMITIES: no edema. PERIPHERAL PULSES: equal. NEUROLOGIC: No gross deficits, AAO X 3 Office Procedures EKG Details: Sinus rhythm 69 beats per minute, left axis deviation, septal infarct, QTC 497 milliseconds. [id number], Complete Assessment & Plan Assessment & Plan (1) Atrial fibrillation: Code(s): I48.91 - Unspecified atrial fibrillation Category: Medical (2) CAD (coronary artery disease): Comment: s/p PCI RCA x 2 stents Code(s): I25.10 - Atherosclerotic heart disease of [place] coronary artery without angina pectoris Category: Medical (3) Valvular heart disease: Comment: s/p TAVR and TMVR. Code(s): I38 - Endocarditis, valve unspecified Category: Medical (4) Lower GI bleed: Code(s): K92.2 - Gastrointestinal hemorrhage, unspecified Category: Medical Plan Pleasant 83-year-old female who is here for follow-up. She has complex valvular disease history and underwent transcatheter aortic valve replacement and transcatheter MVR. She did well from cardiovascular point of view after that. She had paroxysmal atrial fibrillation and was on Eliquis and was taking baby aspirin for previous history of coronary disease. She got admitted couple of days ago at [facility] with rectal bleeding and was transferred to [facility] for further assessment and management. Bleeding spontaneously stopped and she was conservatively managed. Hemoglobin drop from 12 to 10 g per dL. She is currently off the Eliquis and is taking baby aspirin only. She is asking whether Eliquis should be started. I have advised her to discuss this with Gastroenterology. I think ideally she should have a colonoscopy to understand if there is any treatable cause present. If a treatable cause is found then aspirin should be stopped and she should be started on Eliquis. On the other hand this will need some discussion whether Eliquis should be resumed in her given her significant risk of bleeding. I have also discussed with her about Watchman procedure as an alternative to Eliquis in case we do not find an obvious cause for bleeding. Thank you for allowing me to participate in the care of your patient. Please feel free to contact me if you have any questions. Coding Level of Care Code Est Pt Level 5 (89769) Diagnoses Atrial fibrillation I48.91 CAD (coronary artery disease) I25.10 Valvular heart disease I38 Lower GI bleed K92.2 CPT Codes EKG - CPT: 64917-Pbutopboanzlzhgyc, Complete ([id number])
== END 2023-11-16 15:56 | disposition home or self-care (01) ==
PROVIDERS: PCP Internal Medicine; Visit Provider Internal Medicine Cardiovascular Disease
DX: I48.91 Unspecified atrial fibrillation (principal); I25.10 Atherosclerotic heart disease of native coronary artery without angina pectoris; I38 Endocarditis, valve unspecified; K92.2 Gastrointestinal hemorrhage, unspecified
CPT/HCPCS: 93010; 99214

== ENCOUNTER → 2023-11-16 15:14 | Outpatient (BNVA) | payer MEDICARE, OTHER, SELFPAY | PROVIDERS: PCP Internal Medicine; Visit Provider Internal Medicine Cardiovascular Disease | DX: I48.91 Unspecified atrial fibrillation (principal); I25.10 Atherosclerotic heart disease of native coronary artery without angina pectoris; I38 Endocarditis, valve unspecified; K92.2 Gastrointestinal hemorrhage, unspecified; Z79.82 Long term (current) use of aspirin; Z95.2 Presence of prosthetic heart valve | CPT/HCPCS: 93005 ==

== ENCOUNTER 2024-04-12 13:24 | Outpatient (AMB) | payer MEDICARE, OTHER, SELFPAY ==
[2024-04-12 13:29] VITALS: BP 116/60; PULSE 65; O2SAT 96
--- NOTE | 2024-04-12 13:29 | MHC.OFFVIS ---
Vital Signs 04/12/24 13:29 Weight 117 lb 15.157 oz BP 116/60 Blood Pressure Location Lt brachial Position Sitting Pulse 65 Pulse Source Pulse Oximeter Pulse Oximetry (%) 96 Oxygen Delivery Method Room Air Intake Visit Reasons: auto immune Allergies epinephrine [Epinephrine] Adverse Reaction (Mild, Verified 04/12/24 13:32) VERY SHAKY Medication List - Last Reconciled 04/12/24 by Marline James LPN aspirin 81 mg PO DAILY furosemide 20 mg PO DAILY ipratropium bromide 2 sprays intranasal TID PRN levocetirizine (Xyzal) 5 mg PO QPM [id number]-gouskxsy-bxyfiel 36,000-114,000- 180,000 unit (Creon) 1 cap PO TIDWM potassium chloride ER (Klor-Con M) 20 mEq PO BID thyroid (pork) ([place] Thyroid) 60 mg AM, 30mg PM orally; verapamil ER 120 mg PO DAILY HPI Comments Details: 83-year-old female who is here for follow-up. She was seen in the hospital in March when she presented with chest pain. She has a complex cardiovascular history. She previously underwent has catheter aortic valve replacement in November 2021 and [facility]. Previously that she had cardiac catheterization and it appears she had coronary disease and was treated with drug-eluting stents to the right coronary artery before she went for the transcatheter aortic valve replacement. She also had severe calcific mitral valve disease with moderate to severe mitral valve regurgitation as well as stenosis. While she was at [facility] to develop atrial fibrillation and was started on amiodarone and apixaban. Her Plavix was continued an aspirin was stopped. Subsequent to that she was admitted with infected IV site on the right arm and required antibiotics. She is now status post valve in [facility] which was complicated from her description with a paravalvular leak requiring placement of vascular plug. 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 Will get some records. She is going to cardiac rehabilitation currently. She is very fatigued and tired. She said she spent many days laying in bed and is still recovering. After her discharge from hospital Plavix was stopped. She is taking apixaban only at this point. She is taking torsemide 30 mg b.i.d.. Creatinine was improving as per her own report. She also had a pacemaker placed while she was in the hospital. She is currently paced at 50 beats per minute. 08/21/2022 the patient is here for a pulmonary follow-up visit. She continues to participate in cardiac rehabilitation as she has recovered from her very extensive cardiac interventions in [place]. She is still dealing with the hemolytic anemia issue. She did undergo recent CT scan of her heart and she did bring the report this was that in [place]. It appears that the limited lung windows demonstrate evidence of granulomas in addition to mosaic pattern suggesting small airways disease. The patient currently is not using any inhalers. Will hold off any inhalers at this time specially with all the other comorbidities. She did develop atrial fibrillation. Currently on Eliquis. The patient will return back in the springtime will perform pulmonary function studies and decide at that point if pulmonary respiratory therapy is indicated. In the meantime the patient develops any worsening symptoms prior to the next visit she is to call for an earlier assessment. 04/16/2023 the patient is here for a pulmonary follow-up visit. She is recovering from her cardiac surgeries and complications. She is tolerating the blood thinners. She is continuing to exercise regularly. Has not been using any respiratory inhalers at this time. She is having imaging study in [facility] where she had her surgery and will request copies of her CT scans. In the meantime she did have pulmonary function studies % personally reviewed. For some reason the lung volumes were not able to be measured. Still it appears that her diffusing capacity is moderately decreased. And slightly better when compared to her previous. Clinically she is doing well from a respiratory status and does not require any additional therapies. In view of her ongoing medical issues that will follow-up in a year's time. If the patient has any worsening symptoms prior to that she can always call for an earlier assessment. 04/12/2024 the patient is here for a pulmonary follow-up visit. Since we last spoke the patient COVID-19 ill subsequently after that she did develop worsening respiratory GI virus. Patient was to the hospital for up. She of the abdomen pelvis which I personally reviewed does appear to be clear. Lung tissue appears healthy a my evaluation. In addition to that she was having some difficulty swallow. She is GI dilation. She is still working on her strength. She still feels fatigued. This is after several months of being ill. But she does feel like she is slowly improving. She is working on weight gain. From a respiratory status she seems to be doing okay. No need for inhalers. [facility] Medical History (Updated 04/12/24 @ 20:30 by Berlin Auguste MD) Abdominal pain Vasomotor rhinitis Pacemaker History of atrial fibrillation Mitral valve regurgitation Essential tremor Kisha's thyroiditis Valvular heart disease CAD (coronary artery disease) Atelectasis Pulmonary nodules Pleural effusion Sjogren's disease Surgical History Hx of cardiac cath H/O mitral valve repair S/P TAVR (transcatheter aortic valve replacement) Social History Household Members: Spouse Housing: House Do you presently have visiting nurse or other home services: No Alcohol intake: never Patient Tobacco Use Status: Never used Tobacco service: No Current occupational status: retired Review of Systems Const Reports fatigue and Reports weight loss Eyes Denies change in vision ENT Reports change in voice and Reports dysphagia Card Reports dyspnea on exertion Resp Reports dyspnea on exertion GI Reports as per HPI, Reports dysphagia and Reports diarrhea Musc Reports no additional complaints Skin/Breast Reports alopecia Neuro Reports no additional complaints Endo Reports fatigue Maxime/Lymph Denies easy bleeding, Denies easy bruising and Denies lymphadenopathy Aller/Immun Reports no additional complaints Physical Exam Vital Signs: Last Vital Signs Pulse 65 04/12/24 13:29 BP 116/60 04/12/24 13:29 Pulse Ox 96 04/12/24 13:29 Oxygen Delivery Method Room Air 04/12/24 13:29 Const General: comfortable HEENT Head: Yes normal to inspection Eyes General: appearance normal, both eyes and all related structures Neck Neck: Yes supple Chest Chest palpation & inspection: normal inspection of the chest Resp Effort & Inspection: normal respiratory effort and able to speak in complete sentences Auscultation: no crackles, no rales and diminished lung sounds Cardio Rate: regular rate Rhythm: regular rhythm Heart sounds: S1 normal heart sound present, S2 normal heart sound present and Murmur heart sound present GI Inspection: No distended Skin General skin exam: no rashes or lesions noted Extrem General: Yes no clubbing, cyanosis or edema Assessment & Plan Assessment & Plan (1) Sjogren's disease: Code(s): M35.00 - Sjogren syndrome, unspecified Category: Medical Qualifiers: Sjogren organ or system involvement: without extraglandular involvement Qualified Code(s): M35.00 - Sjogren syndrome, unspecified (2) Shortness of breath: Code(s): R06.02 - Shortness of breath Category: Medical (3) Pulmonary nodules: Code(s): R91.8 - Other nonspecific abnormal finding of lung field Category: Medical (4) Atelectasis: Code(s): J98.11 - Atelectasis Category: Medical (5) Vasomotor rhinitis: Code(s): J30.0 - Vasomotor rhinitis Category: Medical (6) Abdominal pain: Code(s): R10.9 - Unspecified abdominal pain Category: Medical Qualifiers: Abdominal location: upper abdomen, unspecified Qualified Code(s): R10.10 - Upper abdominal pain, unspecified Plan ipratropium nasal spray as needed continue cardiac rehab bloodwork F/U 6-8 months Orders: Orders Immunoglobulin G Subclasses Today R10.9 - Unspecified abdominal pain, R91.8 - Other nonspecific abnormal finding of lung field Erythrocyte Sedimentation Rate Today R10.9 - Unspecified abdominal pain, R91.8 - Other nonspecific abnormal finding of lung field Basic Metabolic Panel Today R10.9 - Unspecified abdominal pain, R91.8 - Other nonspecific abnormal finding of lung field Lipase Today R10.9 - Unspecified abdominal pain, R91.8 - Other nonspecific abnormal finding of lung field Immunoglobulins,IgG IgA IgM Today R10.9 - Unspecified abdominal pain, R91.8 - Other nonspecific abnormal finding of lung field Complete Blood Count Auto Diff Today R10.9 - Unspecified abdominal pain, R91.8 - Other nonspecific abnormal finding of lung field Liver Panel Today R10.9 - Unspecified abdominal pain, R91.8 - Other nonspecific abnormal finding of lung field Coding Level of Care Code Est Pt Level 4 (87202) Diagnoses Sjogren's syndrome without extraglandular involvement M35.00 Sjogren organ or system involvement: without extraglandular involvement Shortness of breath R06.02 Pulmonary nodules R91.8 Atelectasis J98.11 Vasomotor rhinitis J30.0 Pain of upper abdomen R10.10 Abdominal location: upper abdomen, unspecified Time Spent (min) 16
--- OUTSIDE RECORDS SUMMARY | 2024-04-12 16:50 | XMS_ITS ---
Author Organization [facility] Address [address] [place] [address] Care Team Providers Care Furniture Assembly Supervisor Name Role Phone PAVAN ROY M.D. Primary Care Provider Cheyanne Black [phone] REASON FOR VISIT BD TO FINANCIAL ENGINEER Encounters Encounter Location Date Provider Diagnosis [facility] [address] [place] [address] 09/18/2023 Cheyanne Lam Plan Of Treatment Next Appt Details Provider Name:Cheyanne davis, 09/23/2024 02:20:00 PM, [address], [address], [place], [address], Progress Notes * DARRIUSJUVENALGALINDODOB:[birth year] (83 yo F)Acc No.[id number]:09/18/2023 Patient:?DARRIUSJUVENALNICOLAS Donald :1940???Age:83 Y???Sex:Female Address:[address] [place] [address], , [place], [address] * true * Date:? Generated for Charmainei hortencia/Maxwell/eTransmitting on:?04/12/2024 04:50 PM EST
--- OUTSIDE RECORDS SUMMARY | 2024-04-12 16:50 | XMS_ITS | Clinical Summary ---
Author Organization [facility] [employer] Address [address] [place] [address] Care Team Providers Care Perinatal Social Worker Name Role Phone Desyi Berry MD Primary Care Provider [phone] Surgical History Surgery Date Site/Laterality Comments TOTAL KNEE ARTHROPLASTY Right PROCEDURE: [place] ARTHRP KNE CONDYLE&PLATU MEDIAL&LAT COMPARTMENTS HYSTERECTOMY PROCEDURE: HISTORICAL HYSTERECTOMY; COMMENT: TAHBSO Medical History Medical History Date Comments H/O viral pneumonia DX:H/O viral pneumonia Cervical cancer (CMS/HCC) DX:Cer vical cancer (HCC) Sjogren's disease (CMS/HCC) 10/26/2017 DX:S jogren's disease (HCC) Raynaud's syndrome without gangrene 11/14/2017 DX:Raynaud's syndrome without gangrene Kisha's thyroiditis 11/14/2017 DX:Ben khurram's thyroiditis Family History Medical History Relation Name Comments CABG Brother 1 Parkinson's Disease Brother 1 CABG Brother 2 Nephrolithiasis Brother 2 Alzheimer's disease Brother 3 CABG Brother 3 Other: raynaud's Mother Breast cancer Other cousin Other: raynaud's Sister 1 Nephrolithiasis Sister 2 Asthma Son 1 Crohn's disease Son 2 Relation Name Status Comments Brother 1 Brother 2 Brother 3 Daughter Alive Mother Other cousin Alive Sister 1 Sister 2 Son 1 Alive Son 2 Alive Son 3 Alive Social History Tobacco Use Types Packs/Day Years Used Date Smoking Tobacco: Never Smokeless Tobacco: Never Alcohol Use Standard Drinks/Week Comments Yes 0 (1 standard drink = 0.6 oz pur e alcohol) Comments Unknown Sex and Gender Information Value Date Recorded Sex Assigned at Not on file Legal Sex Female 2:53 AM EST Gender Identity Not on file Sexual Orientation Not on file Obstetrics History Plan of Treatment Health Maintenance Due Date Last Done Comments DTaP,Tdap,and Td Vaccines (1 - Tdap) 05/01/1959 Pneumococcal Vaccine: 50+ Ye ars (1 of 1 - PCV) 1990 Zoster Vaccines (1 of 2) 1990 RSV Immunization Patients 60 + Years Old (1 - 1-dose 75+ series) 05/01/2015 COVID-19 Vaccine (1 - 2023-2 5 season) 2023 Influenza Vaccine (#1) 2023 HIB Vaccines Aged Out No longer eligi ble based on patient's age to complete this topic HPV Vaccines Aged Out No longer eligi ble based on patient's age to complete this topic Hepatitis A Vaccines Aged Out No long er eligible based on patient's age to complete this topic Hepatitis B Vaccines Aged Out No long er eligible based on patient's age to complete this topic IPV Vaccines Aged Out No longer eligi ble based on patient's age to complete this topic MMR Vaccines Aged Out No longer eligi ble based on patient's age to complete this topic Meningococcal ACWY Vaccine Aged Out N o longer eligible based on patient's age to complete this topic Meningococcal B Vacine Aged Out No lo nger eligible based on patient's age to complete this topic RSV Immunization Patients Un adam 20 months Aged Out No longer eligible b ased on patient's age to complete this topic Varicella Vaccines Aged Out No longer eligible based on patient's age to complete this topic Care Teams Perinatal Social Worker Relationship Specialty Start Date End Date Deysi Berry MD PCP - General Internal Medicine 06/18/18
--- OUTSIDE RECORDS SUMMARY | 2024-04-12 16:50 | XMS_ITS | Clinical Summary ---
Author Organization [facility] Address [address] [place] [address] Care Team Providers Care Assistant Chief Of Police Name Role Phone Wilton Cotter MD Primary Care Provider [phone] Social History Tobacco Use Types Packs/Day Years Used Date Smoking Tobacco: Never Assessed Sex and Gender Information Value Date Recorded Sex Assigned at Female 03/18/2018 12:06 PM EST Gender Identity Not on file Sexual Orientation Not on file Last Filed Vital Signs Vital Sign Reading Time Taken Comments Blood Pressure 140/80 12/29/2014 10:53 AM EST Pulse - - Temperature - - Respiratory Rate - - Oxygen Saturation - - Inhaled Oxygen Concentration - - Weight 74.4 kg (164 lb) 12/29/2014 10:53 AM EST Height 163.8 cm (5' 4.5 ) 12/29/2014 10:53 AM ES T Body Mass Index 27.72 12/29/2014 10:53 AM EST Plan of Treatment Health Maintenance Due Date Last Done Comments COVID-19 Vaccine (#1) 1940 Depression Screening 1952 Preventative Health Evaluation 1958 DTap / Tdap / Td (1 - Tdap) 05/01/1959 Shingrix-Zoster Vaccine (1 of 2) 1990 Fall Risk Assessment 2005 Osteoporosis Screening (DEXA Scan) 2005 Pneumococcal Vaccine (1 of 1 - PCV) 2005 RSV Adult > 60+ Yrs or Pregn ant (1 - 1-dose 75+ series) 05/01/2015 Influenza Vaccine (#1) 2023 Hepatitis B Vaccines Aged Out No long er eligible based on patient's age to complete this topic RSV Ped < 20 months Aged Out No longe r eligible based on patient's age to complete this topic Care Teams Assistant Chief Of Police Relationship Specialty Start Date End Date Wilton Cotter MD [address] [place], [place] [phone] PCP - General End Finder Forming Department 12/29/14
--- OUTSIDE RECORDS SUMMARY | 2024-04-12 16:50 | XMS_ITS | Continuity of Care Document ---
Author Organization [facility] Address [address] [place] [address] Phone [phone] Social History Type Date Description Comments Sex Unknown Medical Devices Description No Information Available Encounters Description No Information Available Assessments Description No Information Available Plan of Treatment No Information Available Functional Status Description No Information Available Mental Status Description No Information Available Referrals Description No Information Available
--- OUTSIDE RECORDS SUMMARY | 2024-04-12 16:50 | XMS_ITS | Clinical Summary ---
Author Organization [facility] Address [address] [place] [address] Care Team Providers Care Synthetic Filament Extruder Name Role Phone Wilton Cotter Primary Care Provider [phone] Medications No known medications Active Problems No known active problems Social History Tobacco Use Types Packs/Day Years Used Date Smoking Tobacco: Never Assessed Comments Unknown Sex and Gender Information Value Date Recorded Sex Assigned at Not on file Legal Sex Female 1:11 PM EST Gender Identity Not on file Sexual Orientation Not on file Plan of Treatment Health Maintenance Due Date Last Done Comments DTaP/Tdap/Td (1 - Tdap) 1958 Pneumococcal 50+ years (1 of 1 - PCV) 1990 Zoster (Shingrix) (1 of 2) 1990 Bone Density 2005 RSV (1 - 1-dose 75+ series) 05/01/2015 COVID-19 Vaccine (2023-2 5 season) 2023 Influenza (#1) 2023 HPV Vaccine Aged Out No longer eligi ble based on patient's age to complete this topic Hep A Aged Out No longer eligi ble based on patient's age to complete this topic Hep B Aged Out No longer eligi ble based on patient's age to complete this topic Hib Aged Out No longer eligi ble based on patient's age to complete this topic Mammogram/Breast Imaging Discontinued Meningococcal ACWY Aged Out No longer eligible based on patient's age to complete this topic Pap Smear Discontinued Zoster (Zostavax) Discontinued Insurance [facility] MEDIC[facility] PART B Care Teams Synthetic Filament Extruder Relationship Specialty Start Date End Date Wilton Cotter [facility] [address] [place] [address] PCP - General Internal Medicine 04/18/14
--- OUTSIDE RECORDS SUMMARY | 2024-04-12 16:50 | XMS_ITS ---
Author Organization [facility] Address [address] [address] Care Team Providers Care Litigation Attorney Associate Name Role Phone PAVAN ROY M.D. Primary Care Provider Cheyanne Black Unavailable [phone] Allergies Allergen (clinical drug ingredient) Drug/Non Drug Allergy documented on EMR Reaction Allergy Type Onset Date Status EPINEPHRINE Sensativity Drug Allergy Act ba REASON FOR VISIT Annual COFFEE BLENDER Physical, Annual COFFEE BLENDER Physical 60-85+ Medications Medication SIG (Take, Route, Frequency, Duration) Notes Start Date End Date Status Miebo 1.338 GM/ML Ophthalmic for 30 Days Active [place] Thyroid 90 MG 1 tablet Orally Once a day Active Eliquis 2.5 MG TAKE 1 TABLET BY EMIL TH TWICE A DAY Oral for 90 Days Active Reclast 5 MG/100ML as directed Intravenous Active Furosemide 20 MG Oral for 90 A ctive Premarin 0.625 MG/GM 0.5 GRAM Vaginal TW ICE WEEKLY for 90 days 10/18/2021 Active Clobetasol Propionate 0.05 % 1 application to affected area Externally every night for a month then q other night for another month for 90 days 10/18/2021 Active Aspirin 81 MG 1 tablet Orally Once a day for 30 day(s) Active Calcium-D Active Vitamin C 500 MG as directed Orally Active Vitamin B Complex - as directed Orally Active Losartan Potassium 25 MG TAKE 1 TABLET ( 25 MG TOTAL) BY MOUTH DAILY. Oral for 90 Days Active Social History Tobacco Use: Social History Observation Description Date Details (start date - stop date) Never Smoker NA - NA AUDIT-C (Standard) Question Answer Notes Did you have a drink contain ing alcohol in the past year? Yes How often did you have six o r more drinks on one occasion in the past year? Never (0 point) How many drinks did you have on a typical day when you were drinking in the past year? 1 or 2 drinks (0 point) How often did you have a dri nk containing alcohol in the past year? Monthly or less (1 point) Points 1 Interpretation Negative Tobacco Control (Standard) Question Answer Notes Tobacco use: Nonsmoker Problems Problem Type SNOMED Code ICD Code Onset Dates Problem Status W/U Status Risk Notes Problem Abdominal aortic aneurysm without rupture (disorder) (61722938) Abdominal aneurysm without mention of rupture (441.4) Active confirmed Vital Signs Temperature 97.5 degrees Fahrenheit 09/18/19 24 Blood pressure systolic 112 mm Hg 09/18/19 24 Blood pressure diastolic 64 mm Hg 024 Height 64.75 in 09/18/2023 Weight 120 lbs 09/18/2023 BMI 20.12 kg/m2 09/18/2023 Encounters Encounter Location Date Provider Diagnosis [address] [place] [address] 09/18/2023 Cheyanne Lam Encounter for screening mammogram for malignant neoplasm of breast Z12.31 ; Other specified disorders of bone density and structure, multiple sites M85.89 ; Encounter for gynecological examination (general) (routine) without abnormal findings Z01.419 ; Personal history of malignant neoplasm of cervix uteri Z85.41 ; Lichen sclerosus et atrophicus L90.0 and Postmenopausal atrophic vaginitis N95.2 Assessments Encounter Date Diagnosis (ICD Code) Assessment Notes Treatment Notes Treatment Clinical Notes Section Notes 09/18/2023 Encounter for screening mammogram for malignant neoplasm of breast (ICD-10 - Z12.31) REGULAR MAMMOGRAMS AND SBE'S WERE RECOMMENDED. 09/18/2023 Other specified disorders of bone density and structure, multiple sites (ICD-10 - M85.89) DISCUSSED OSTEOPENIA AND ITS IMPACT ON HER HEALTH. ADEQUATE CALCIUM AND VIT D. WEIGHT BEARING EXERCISES. REPEAT BMD IN 2024. SEND BMD RESULTS TO HER HOSPITAL INSURANCE CLERK IN [facility]. 09/18/2023 Encounter for gynecological examination (general) (routine) without abnormal findings (ICD-10 - Z01.419) NO PAP TESTS. 09/18/2023 Personal history of malignant neoplasm of cervix uteri (ICD-10 - Z85.41) DISCUSSED PREVIOUS HX OF RM FOR CERVICAL CA AND SUBSEQUENTLY NEGATIVE PAP TESTS. 09/18/2023 Lichen sclerosus et atrophicus (ICD-10 - L90.0) DISCUSSED FINDINGS AND ADVISED PAT TO APPLY CLOBETASOL OINTMENT ONCE WEEKLY. DETAILED INSTRUCTIONS WERE GIVEN. 09/18/2023 Postmenopausal atrophic vaginitis (ICD-10 - N95.2) DISCUSSED FINDINGS, DX AND TX OPTIONS. PAT IS ASYMPTOMATIC. Plan Of Treatment Treatment Notes Assessment Notes Encounter for screening mamm ogram for malignant neoplasm of breast REGULAR MAMMOGRAMS AND SBE'S WERE RECOMMENDED. Other specified disorders of bone density and structure, multiple sites DISCUSSED OSTEOPENIA AND ITS IMPACT ON HER HEALTH. ADEQUATE CALCIUM AND VIT D. WEIGHT BEARING EXERCISES. REPEAT BMD IN 2024. SEND BMD RESULTS TO HER HOSPITAL INSURANCE CLERK IN [place] [facility]. Encounter for gynecological examination (general) (routine) without abnormal findings NO PAP TESTS. Personal history of malignan t neoplasm of cervix uteri DISCUSSED PREVIOUS HX OF RM FOR CERVICA L CA AND SUBSEQUENTLY NEGATIVE PAP TESTS. Lichen sclerosus et atrophicus DISCUSSED FINDINGS AND ADVISED PAT TO APPLY CLOBETASOL OINTMENT ONCE WEEKLY. DETAILED INSTRUCTIONS WERE GIVEN. Postmenopausal atrophic vaginitis DISCUSSED FINDINGS, DX AND TX OPTIONS. PAT IS ASYMPTOMATIC. Pending Test Test Name Order Date MAMMOGRAM, SCREENING 09/18/2023 MM Digital Mammo Screening 09/18/2023 Next Appt Details Follow Up: 1 Year, Reason: Provider Name:Cheyanne davis, 09/23/2024 02:20:00 PM, [address] [place] [address], [address], [place], [address], Progress Notes * SHERRY RIZODOB:[birth year] (83 yo F)Acc No.[id number]:09/18/2023 PROGRESS NOTES Patient:?JEANNIE RIZO Appointment Provider:?Cheyanne davis M.D. :1940???Age:83 Y???Sex:Female D ate:09/18/2023 Address:[address] [place] [address], , [facility] Pcp:PAVAN ROY M.D. Subjective: * Chief Complaints: * ??? Annual COFFEE BLENDER PhysicalAnnua l COFFEE BLENDER Physical 60-85+ * HPI: ???New/Follow-up Patient Consult:? S/P RM, LEFT S&O AT AGE 32 FOR CERVICAL CA.? SHE HAS NOT HAD ANY RECURRENCE.? HER LAST PAP TEST IN 2010 WAS NEGATIVE. SHE IS TO AN 85 YEAR OLD MAN WHO HAS VASCULAR DEMENTIA.? SHE DOES NOT WANT TO PASS AWAY AHEAD OF HIM NO ONE WILL TAKE CARE OF HIM WELL SHE DOES.?? VULVAR BIOPSY DONE IN 2014 SHOWED LICHEN SCLEROSUS.? SHE RESPONDED WELL TO CLOBETASOL TREATMENT BUT WAS NOT CONSISTENT IN APPLYING THE MEDICATION REGULARLY.? SHE WAS LAST SEEN IN OCT 2021 AND ADVISED TO APPLY THE OINTMENT NIGHTLY FOR A MONTH.? SHE FAILED TO FOLLOW UP.?? SHE HAD MULTIPLE CARDIAL ISSUES AND HAS BEEN IN AND OUT OF [facility] FOR MOST OF 2022.? SHE IS FINALLY BETTER AND IS HERE FOR HER COFFEE BLENDER EXAM. HER LAST MAMMOGRAM DONE IN JULY 2023 SHOWED BREASTS ARE NOT DENSE AND WAS NORMAL. HER LAST PAP BMD IN 2022 SHOWED THE LOWEST T-SCORE TO BE -2.1? AT THE FEMORAL NECK.? NO SIGNIFICANT CHANGE COMPARED TO HER BMD IN 2020 AND 2018.? SHE IS SEEING A HOSPITAL INSURANCE CLERK? AT [facility], DR TASNEEM KUO.? WE WILL SEND HER LAST BMD TO HER. SHE HAD A COLONOSCOPY DONE IN 2014. MODERNA X 3. ???Annual:? Patient presents for annual exam, ages 60-85, postmenopausal. ?General Health Maintenance:?Current breast complaints:?no breast pain, mass, discharge, or skin changes ?Urinary problems:?patient reports no urinary health problems or bowel health problems ?Calcium intake:?takes adequate calcium via diet and supplementation ?Significant COFFEE BLENDER problems:?no significant shipping packer symptoms or problems * ROS:?general:?no?chest pain.?no?palpitations.?no?headache.?no?cough.?no?shortness of breath.?no?fever.?no?unexplained weight loss.?no?nausea/vomiting.?no?change in bowel movements.?no blood in stool.?no?genitourinary complaints.?no?skin complaints.? * Medical History:? 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 Control:?None.?Hysterectomy:?Yes age 32 for Cervical Cancer w/ LSO.?Endoscopy *?yes 2018.?Colonoscopy?yes 2014.?Bone Density:?04/05/22, 03/28/20, 12/07/18, 11/27/17.? * OB History:?Total pregnancies?4.?Total living children?4.?NVD?4.? * Surgical History:?Cataract S urgery Cholecystectomy Bilateral Eye Surgery Hysterectomy w/ LSO Lumpectomy Bladder Neck Suspension Total Rt Knee Replacement 2014Vulvar Biopsy 11/2014Sclera [place] Heart Disease Colonoscopy Angiogram ight Coronary Artery 2 Stents Heart Ablation Transcatheter Surgery Mitral Valve Surgery 3Pacemaker * Hospitalization/Major Diagno stic Procedure:?4 Vaginal Deliveries See Surgical Hx Pneumonia * Family History:?Mother: dece ased 86 yrs, coronary artery disease.?Father: 62 yrs, coronary artery disease.?3 brother(s) , 1 sister(s) - healthy. .? * Social History:?Tobacco Use:?Tobacco Control (Standard)?Tobacco use:?Nonsmoker ???Sexual History:?Sexual History?Had sex in the past 12 months (vaginal, oral, or anal)?: Yes, with: Men only, Use protection?: No, Have you ever had a Sexually transmitted disease?: No.?Details of Sexual History?Are you sexually active??Yes ???Drugs/Alcohol:?Drugs?Have you used drugs other than those for medical reasons in the past 12 months??No ???Miscellaneous:?Caffeine: yes, frequency:, 1 cup per day of coffee. ?Children: yes, 4. ?Domestic violence: no. ?Exercise: yes, Aerobic Activity, bicycling, Weight Lifting. ?Home smoke detector use: yes. ?Living with: spouse. ?Marital status: . ?Natural support system: yes. 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 ?Sexual abuse: no. ?Sexually active: yes, but not as often , monogamous relationship. ?Travel outside of the [place]: yes, [place], travels to [place]. ?Verbal abuse: no. ???Drug/Alcohol:?AUDIT-C (Standard)?Did you have a drink containing alcohol in the past year??Yes ?How often did you have six or more drinks on one occasion in the past year??Never (0 point) ?How many drinks did you have on a typical day when you were drinking in the past year??1 or 2 drinks (0 point) ?How often did you have a drink containing alcohol in the past year??Monthly or less (1 point) ?Points?1 ?Interpretation?Negative * Medications:?TakingEliquis 2 .5 MG Tablet TAKE 1 TABLET BY MOUTH TWICE A DAY Oral Miebo 1.338 GM/ML Solution Ophthalmic [place] Thyroid 90 MG Tablet 1 tablet Orally Once a day Losartan Potassium 25 MG Tablet TAKE 1 TABLET (25 MG TOTAL) BY MOUTH DAILY. Oral Vitamin B Complex - Tablet as directed Orally Vitamin C 500 MG Capsule as directed Orally Calcium-D Aspirin 81 MG Tablet Delayed Release 1 tablet Orally Once a day Reclast 5 MG/100ML Solution as directed Intravenous Furosemide 20 MG Tablet Oral Premarin 0.625 MG/GM Cream 0.5 GRAM Vaginal TWICE WEEKLY Clobetasol Propionate 0.05 % Ointment 1 application to affected area Externally every night for a month then q other night for another month Taking Eliquis 2.5 MG Tablet TAKE 1 TABLET BY MOUTH TWICE A DAY Oral Taking Miebo 1.338 GM/ML Solution Ophthalmic Taking [place] Thyroid 90 MG Tablet 1 tablet Orally Once a day Taking Losartan Potassium 25 MG Tablet TAKE 1 TABLET (25 MG TOTAL) BY MOUTH DAILY. Oral Taking Vitamin B Complex - Tablet as directed Orally Taking Vitamin C 500 MG Capsule as directed Orally Taking Calcium-D Taking Aspirin 81 MG Tablet Delayed Release 1 tablet Orally Once a day Taking Reclast 5 MG/100ML Solution as directed Intravenous Taking Furosemide 20 MG Tablet Oral Taking Premarin 0.625 MG/GM Cream 0.5 GRAM Vaginal TWICE WEEKLY Taking Clobetasol Propionate 0.05 % Ointment 1 application to affected area Externally every night for a month then q other night for another month DiscontinuedVitamin E 400 UNIT Capsule 1 capsule Orally Once a day , Notes to Pharmacist: Unknown DoseVitamin A 3 MG (03463 UT) Capsule 1 capsule Orally Once a day , Notes to Pharmacist: Unknown DoseFish Oil 1000 MG Capsule 1 capsule Orally Once a day Dilt-XR 240 MG Capsule Extended Release 24 Hour TAKE 1 CAPSULE BY MOUTH EVERY DAY Oral Premarin 0.625 MG/GM Cream 1 GRAM Vaginal & vulvar TWICE WEEKLY Clobetasol Propionate 0.05 % Ointment 1 application to affected area Externally EVERY OTHER NIGHT Medication List reviewed and reconciled with the patientDiscontinued Vitamin E 400 UNIT Capsule 1 capsule Orally Once a day , Notes to Pharmacist: Unknown DoseDiscontinued Vitamin A 3 MG (48705 UT) Capsule 1 capsule Orally Once a day , Notes to Pharmacist: Unknown DoseDiscontinued Fish Oil 1000 MG Capsule 1 capsule Orally Once a day Discontinued Dilt-XR 240 MG Capsule Extended Release 24 Hour TAKE 1 CAPSULE BY MOUTH EVERY DAY Oral Discontinued Premarin 0.625 MG/GM Cream 1 GRAM Vaginal & vulvar TWICE WEEKLY Discontinued Clobetasol Propionate 0.05 % Ointment 1 application to affected area Externally EVERY OTHER NIGHT Medication List reviewed and reconciled with the patient * Allergies:?EPINEPHRINE: Sens ativity - Allergyno[Allergies Verified] Objective: * Vitals:?Ht: 64.75 in, Wt: 12 0 lbs, BMI:20.12Index, BP: 112/64 mm Hg, Temp: 97.5 F. * Examination: ???General Exam: ?CONSTITUTIONAL:?General Appearance:?alert, in no acute distress, normal, well nourished ?NECK/THYROID:?Inspection/Palpation:?normal ?Thyroid:?normal size and shape ?RESPIRATORY:?Auscultation: clear to auscultation bilaterally, Respiratory Effort: normal.?CARDIOVASCULAR:?Auscultation: regular rate and rhythm.?BREAST, Right:?Inspection/Palpation:?no discharge, no masses present, no nipple retraction, no skin changes, no skin dimpling, no tenderness, no lymphadenopathy, no axillary mass, no axillary tenderness ?BREAST, Left:?Inspection/Palpation:?no discharge, no masses present, no nipple retraction, no skin changes, no skin dimpling, no tenderness, no lymphadenopathy, no axillary mass, no axillary tenderness ?GASTROINTESTINAL:?Abdomen:?no masses, nontender, nondistended ?Liver and Spleen:?normal ?Hernias:?no hernias present, no inguinal adenopathy ?MUSCULOSKELETAL:?Inspection/Palpation:?no clubbing, cyanosis, or edema ?SKIN:?Skin:?normal ?NEURO/PSYCH:?Orientation:?time , place, person ?Mood/Affect:?normal?Genitourinary: ?EXTERNAL GENITALIA:?External Genitalia:?normal, no lesions ?VAGINA:?Vagina:?atrophic vaginal tissue, minimal moisture ?BLADDER:?Bladder:?no mass, nontender ?URETHRA:?Urethra:?no erythema or lesions present ?CERVIX:?Cervix:?surgically absent ?UTERUS:?Uterus:?surgically absent ?ADNEXA:?Adnexa:?no masses, no tenderness ?ANUS AND PERINEUM:?Anus/Perineum:?visually normal??? Assessment: * Assessment: 1.?Encounter for screening m ammogram for malignant neoplasm of breast - Z12.31???2.?Other specified disorders of bone density and structure, multiple sites - M85.89? ?3.?Encounter for gynecological examination (general) (routine) without abnormal findings - Z01.419 (Primary)???4.?Personal history of malignant neoplasm of cervix uteri - Z85.41???5.?Lichen sclerosus et atrophicus - L90.0???6.?Postmenopausal atrophic vaginitis - N95.2??? Plan: * Treatment: 2.?Encounter for screening m ammogram for malignant neoplasm of breast?Imaging: MM Digital Mammo Screening Notes: REGULAR MAMMOGRAMS AND SBE'S WERE RECOMMENDED.?? 3.?Other specified disorders of bone density and structure, multiple sites? Notes: DISCUSSED OSTEOPENIA AND ITS IMPACT ON HER HEALTH. ADEQUATE CALCIUM AND VIT D. WEIGHT BEARING EXERCISES. REPEAT BMD IN 2024. SEND BMD RESULTS TO HER HOSPITAL INSURANCE CLERK IN [facility].?? 4.?Personal history of malesmer nant neoplasm of cervix uteri? Notes: DISCUSSED PREVIOUS HX OF RM FOR CERVICAL CA AND SUBSEQUENTLY NEGATIVE PAP TESTS.?? 5.?Lichen sclerosus et atrop hicus? Notes: DISCUSSED FINDINGS AND ADVISED PAT TO APPLY CLOBETASOL OINTMENT ONCE WEEKLY. DETAILED INSTRUCTIONS WERE GIVEN.?? 6.?Postmenopausal atrophic v aginitis? Notes: DISCUSSED FINDINGS, DX AND TX OPTIONS. PAT IS ASYMPTOMATIC.?? * Imaging:? * ?Imaging: MAMMOGRAM, SCR EENING * Procedure Codes:? * Preventive Medicine:? ??YOUR PREVENTIVE WELLNESS PLAN:?Osteoporosis prevention?Calcium, D, strength training.?Breast Cancer Screening (Mammogram):?annually.?Cervical Cancer Screening (Pap Smear):?q 3 years with HPV screen.?Colorectal Cancer Screening:?q 10 years.? * Follow Up:?1 Year * Images: Billing Information: * Visit Code:? [id number] Preventive Care Est Pt. Age 65 and over. * Procedure Codes:? * Sign off status: Completed true * Appointment Provider:?Cheyanne Lam M.D. Date:?09/18/2023 Generated for Jovanny burnett/Maxwell/Daviditting on:?04/12/2024 04:50 PM EST History and Physical Notes * HPI (History of Present Illness) Category Sub-Category Detail Notes Category Not es New/Follow-up Patient Consult S/P RM, LEFT S&O AT AGE 32 FOR CERVICAL CA. SHE HAS NOT HAD ANY RECURRENCE. HER LAST PAP TEST IN 2010 WAS NEGATIVE. SHE IS TO AN 85 YEAR OLD MAN WHO HAS VASCULAR DEMENTIA. SHE DOES NOT WANT TO PASS AWAY AHEAD OF HIM NO ONE WILL TAKE CARE OF HIM WELL SHE DOES. VULVAR BIOPSY DONE IN 2014 SHOWED LICHEN SCLEROSUS. SHE RESPONDED WELL TO CLOBETASOL TREATMENT BUT WAS NOT CONSISTENT IN APPLYING THE MEDICATION REGULARLY. SHE WAS LAST SEEN IN OCT 2021 AND ADVISED TO APPLY THE OINTMENT NIGHTLY FOR A MONTH. SHE FAILED TO FOLLOW UP. SHE HAD MULTIPLE CARDIAL ISSUES AND HAS BEEN IN AND OUT OF [facility] FOR MOST OF 2022. SHE IS FINALLY BETTER AND IS HERE FOR HER COFFEE BLENDER EXAM. HER LAST MAMMOGRAM DONE IN JULY 2023 SHOWED BREASTS ARE NOT DENSE AND WAS NORMAL. HER LAST PAP BMD IN 2022 SHOWED THE LOWEST T-SCORE TO BE -2.1 AT THE FEMORAL NECK. NO SIGNIFICANT CHANGE COMPARED TO HER BMD IN 2020 AND 2018. SHE IS SEEING A HOSPITAL INSURANCE CLERK AT [facility], DR TASNEEM KUO. WE WILL SEND HER LAST BMD TO HER. SHE HAD A COLONOSCOPY DONE IN 2014. MODERNA X 3. Annual General Health Maintenance: Current breast complaints:: no breast pain, mass, discharge, or skin changes Urinary problems:: patient r eports no urinary health problems or bowel health problems Calcium intake:: takes adequ ate calcium via diet and supplementation Significant COFFEE BLENDER problems:: n o significant shipping packer symptoms or problems Examination Category Sub-Category Detail Notes Category Not es General Exam CONSTITUTIONAL: General Appearan ce:: alert, in no acute distress, normal, well nourished NECK/THYROID: Thyroid:: normal size and shape Inspection/Palpation:: normal RESPIRATORY: Auscultation: clear to auscultation bilaterally, Respiratory Effort: normal CARDIOVASCULAR: Auscultation: regula r rate and rhythm GASTROINTESTINAL: Hernias:: no hernias present, no inguinal adenopathy Liver and Spleen:: normal Abdomen:: no masses, nontender, nondiste nded MUSCULOSKELETAL: Inspection/Palpation:: no clubb ing, cyanosis, or edema SKIN: Skin:: normal NEURO/PSYCH: Mood/Affect:: normal Orientation:: time , place, person BREAST, Right: Inspection/Palpation :: no discharge, no masses present, no nipple retraction, no skin changes, no skin dimpling, no tenderness, no lymphadenopathy, no axillary mass, no axillary tenderness BREAST, Left: Inspection/Palpation :: no discharge, no masses present, no nipple retraction, no skin changes, no skin dimpling, no tenderness, no lymphadenopathy, no axillary mass, no axillary tenderness Genitourinary EXTERNAL GENITALIA: External Genitalia:: nor mal, no lesions VAGINA: Vagina:: atrophic vaginal tissue , minimal moisture BLADDER: Bladder:: no mass, nontender URETHRA: Urethra:: no erythema or lesions present CERVIX: Cervix:: surgically absent UTERUS: Uterus:: surgically absent ADNEXA: Adnexa:: no masses, no tendernes s ANUS AND PERINEUM: Anus/Perineum:: visually norm al
--- OUTSIDE RECORDS SUMMARY | 2024-04-12 16:50 | XMS_ITS | Patient Health Record ---
Author Organization [facility] Address [address] [place] [address] Care Team Providers Care Charge Auditor Name Role Phone PAVAN ROY M.D. Primary Care Provider Cheyanne Black Unavailable [phone] Allergies Allergen (clinical drug ingredient) Drug/Non Drug Allergy documented on EMR Reaction Allergy Type Onset Date Status EPINEPHRINE Sensativity Drug Allergy Act ba Reason For Referral No Information Medications Medication SIG (Take, Route, Frequency, Duration) Notes Start Date End Date Status Miebo 1.338 GM/ML Ophthalmic for 30 Days Active Reclast 5 MG/100ML as directed Intravenous Active [place] Thyroid 90 MG 1 tablet Orally Once a day Active Furosemide 20 MG Oral for 90 A ctive Eliquis 2.5 MG TAKE 1 TABLET BY EMIL TH TWICE A DAY Oral for 90 Days Active Aspirin 81 MG 1 tablet Orally Once a day for 30 day(s) Active Calcium-D Active Vitamin B Complex - as directed Orally Active Vitamin C 500 MG as directed Orally Active Losartan Potassium 25 MG TAKE 1 TABLET ( 25 MG TOTAL) BY MOUTH DAILY. Oral for 90 Days Active Premarin 0.625 MG/GM 0.5 GRAM Vaginal TW ICE WEEKLY for 90 days 10/18/2021 Active Clobetasol Propionate 0.05 % 1 application to affected area Externally every night for a month then q other night for another month for 90 days 10/18/2021 Active Social History Tobacco Use: Social History [...] Problem Abdominal aortic aneurysm without rupture (disorder) (99293086) Abdominal aneurysm without mention of rupture (441.4) Active confirmed Problem Postmenopausal state (84154791) Asymptomatic menopausal state (Z78.0) Active confirmed Problem Postmenopausal atrophic vaginitis (30617605) Postmenopausal atrophic vaginitis (N95.2) Active confirmed Problem Localized morphea (828522013) 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) Active confirmed Problem Atrophy of vulva (116023727) 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) Active confirmed Problem Screening for malignant neoplasm of breast (392293136) Encounter for screening mammogram for malignant neoplasm of breast (Z12.31) Active confirmed Problem Screening for osteoporosis (968384244) Encounter for screening for osteoporosis (Z13.820) Active confirmed Problem History of malignant neoplasm of cervix (710047303) Personal history of malignant neoplasm of cervix uteri (Z85.41) Active confirmed Problem Gynecological examination normal (443871594842894) Routine gynecological examination (V72.31) Active confirmed Problem Screening for malignant neoplasm of cervix (652968977) Screening for malignant neoplasm of the cervix (V76.2) Active confirmed Diag Vital Signs Temperature 97.5 degrees Fahrenheit 09/18/2023 Blood pressure diastolic 64 mm Hg 09/18/2023 Height 64.75 in 09/18/2023 Blood pressure systolic 112 mm Hg 09/18/2023 Weight 120 lbs 09/18/2023 BMI 20.12 kg/m2 09/18/2023 Encounters Encounter Location Date Provider Diagnosis [address] [place] [address] 09/18/2023 Cheyanne Lam Encounter for screening mammogram for malignant neoplasm of breast Z12.31 ; Other specified disorders of bone density and structure, multiple sites M85.89 ; Encounter for gynecological examination (general) (routine) without abnormal findings Z01.419 ; Personal history of malignant neoplasm of cervix uteri Z85.41 ; Lichen sclerosus et atrophicus L90.0 and Postmenopausal atrophic vaginitis N95.2 [facility] [address] [place] [address] 09/18/2023 Cheyanne Lam Assessments Encounter Date Diagnosis (ICD Code) Assessment [...] IN 2024. 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 09/18/2023 Encounter for gynecological examination (general) (routine) [...] OPTIONS. PAT IS ASYMPTOMATIC. Plan Of Treatment Pending Test Test Name Order Date MAMMOGRAM, SCREENING 10/18/2021 MAMMOGRAM, SCREENING 09/18/2023 BONE DENSITY 01/26/2020 BONE DENSITY 10/18/2021 MM Digital Mammo Screening 07/29/2018 MM Digital Mammo Screening 10/18/2021 MM Digital Mammo Screening 09/18/2023 Next Appt Details Provider Name:Cheyanne Yun susan, 09/23/2024 02:20:00 PM, [address], [address], [place], [address], Insurance Providers Payer Name Payer Address Payer Phone Subscriber Number Group Number Insured Name Patient Relationship to Insured Coverage Start Date Coverage End Date MEDICARE [address] [place], [place] [id number] SHERRY GAR Self - patient is the insured [facility] [address] [place] [address] [phone] [id number] SHERRY GAR Self - patient is the insured Medical (General) History Medical History History ICD Code Sjogren's Disease Kisha's Thyroiditis Malignant neoplasm of cervix uteri 180 Raynaud's syndrome without gangrene I73. 00 Cataract 366 Atrophy of vulva N90.5 Disorder of bone density and structure, unspecified M85.9 Postmenopausal atrophic vaginitis N95.2 Personal history of malignant neoplasm o f cervix uteri Z85.41 Lichen sclerosus et atrophicus L90.0 Unspecified atrial fibrillation I48.91 Heart Aneurysm Surgical History Surgery Date(Month/Year) Cataract Surgery Cholecystectomy Bilateral Eye Surgery Hysterectomy w/ LSO Lumpectomy Bladder Neck Suspension Total Rt Knee Replacement 2014 Vulvar Biopsy 11/2014 Sclera [place] Heart Disease Colonoscopy Angiogram 11/2021 Right Coronary Artery 2 Stents Heart Ablation Transcatheter Surgery Mitral Valve Surgery 04/2022 Pacemaker Hospitalization History Reason Date(Month/Year) Pneumonia See Surgical Hx 4 Vaginal Deliveries
== END 2024-04-12 13:54 | disposition home or self-care (01) ==
PROVIDERS: PCP Internal Medicine; Visit Provider Hospitalist
DX: M35.00 Sjogren syndrome, unspecified (principal); R06.02 Shortness of breath; R91.8 Other nonspecific abnormal finding of lung field; J98.11 Atelectasis; J30.0 Vasomotor rhinitis; R10.10 Upper abdominal pain, unspecified
CPT/HCPCS: 99214

== ENCOUNTER → 2024-04-12 13:24 | Outpatient (BNVA) | payer MEDICARE, OTHER, SELFPAY | PROVIDERS: PCP Internal Medicine; Visit Provider Hospitalist | DX: M35.00 Sjogren syndrome, unspecified (principal); J98.11 Atelectasis; J30.0 Vasomotor rhinitis; R06.02 Shortness of breath; R91.8 Other nonspecific abnormal finding of lung field; R10.10 Upper abdominal pain, unspecified | CPT/HCPCS: 99212 ==

== ENCOUNTER 2024-07-24 15:41 | Emergency (ER) | payer OTHER, MEDICARE, SELFPAY ==
[2024-07-24 15:43] VITALS: BP 193/91; PULSE 75; RESP 18; TEMP 36.9; O2SAT 100; BMI 19.6
--- NOTE | 2024-07-24 15:43 | ED_ITS ---
HPI - General Adult General Chief complaint: General Medical Stated complaint: 178/111 blood pressure/afib Time Seen by Provider: 07/24/24 16:43 Source: patient Mode of arrival: ambulatory Limitations: no limitations History of Present Illness ED Provider: HPI narrative: Patient is 84 years old with history of atrial fibrillation Sjogren syndrome hypertension mitral valve regurgitation status post pacemaker comes here as prior to arrival patient was not feeling good has a heaviness in the head and blood pressure checked at home was 178/111 on arrival patient's blood pressure has improved to 167/74 pain denied any chest pain no shortness of breath 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 Related Data Home Medications ?Medication ?Instructions ?Recorded ?Confirmed [id number] 1 cap PO TIDWM 10/03/21 04/12/24 36,000-114,000-180,000 unit capsule,delay rel (Creon) levocetirizine 5 mg tablet (Xyzal) 5 mg PO QPM 03/24/22 04/12/24 potassium chloride 20 mEq 20 meq PO BID 07/30/22 04/12/24 tablet,extended release(part/cryst) (Klor-Con M) thyroid (pork) 30 mg tablet See Rx Instructions PO .COMPLEX 07/30/22 04/12/24 ([place] Thyroid) verapamil 120 mg 24 hr 120 mg PO DAILY 12/03/22 04/12/24 capsule,extended release aspirin 81 mg tablet,delayed 81 mg PO DAILY 11/16/23 04/12/24 release furosemide 20 mg tablet 20 mg PO DAILY 11/16/23 04/12/24 Previous Rx's ?Medication ?Instructions ?Recorded ipratropium bromide 42 mcg (0.06 2 spray intranasal TID PRN for 08/07/23 %) nasal spray allergies #135 mL Allergies Allergy/AdvReac Type Severity Reaction Status Date / Time epinephrine [Epinephrine] AdvReac Mild VERY SHAKY Verified 07/24/24 15:48 Apymroo-ZME-NzE Reductase AdvReac Weakness Verified 07/24/24 15:48 Inhibitor PMFSH Past Medical History Medical History (Updated 04/12/24 @ 20:30 by [place] Auguste MD) Abdominal pain Vasomotor rhinitis Pacemaker History of atrial fibrillation Mitral valve regurgitation Essential tremor Kisha's thyroiditis Valvular heart disease CAD (coronary artery disease) Atelectasis Pulmonary nodules Pleural effusion Sjogren's disease Surgical History Hx of cardiac cath H/O mitral valve repair S/P TAVR (transcatheter aortic valve replacement) Social History Social History Household Members: Spouse Housing: House Do you presently have visiting nurse or other home services: No Alcohol intake: never Patient Tobacco Use Status: Never used Tobacco Smoked in Last 30 Days: No Use of substances other than those prescribed or required for medical reasons: No Advance Directives: No Advance Directives Information Provided: No service: No Current occupational status: retired Physical Exam ED Vital Signs: Vital Signs - 24 hr 07/24/24 15:43 07/24/24 16:33 Temperature 98.4 F Pulse Rate 75 65 Respiratory Rate 18 18 Blood Pressure 193/91 H 167/74 H Pulse Oximetry 100 97 Oxygen Delivery Method Room Air Room Air BMI result Body Mass Index 19.6 Course Course Course Narrative: Daren Reyna APRN This is a rapid medical exam. Deferred additional HPI, ROS, PE to primary provider. 84 yo female with PMH with history of CVA, afib on ASA only, CAD, HTN, AVR here with complaints of generalized weakness, head pressure, nausea today. Was noted to have high blood pressure at home. Will obtain labs, EKG Hypertensive in triage. Medical Decision Making Medical Decision Making MDM Narrative: Patient's transient hypotension Lab Data [facility] Lab Attestation statement: I reviewed the patient's lab results. 07/24/24 16:00 07/24/24 16:00 Labs: Lab Results 07/24/24 Range/Units 16:00 WBC 9.3 (4.8-10.8) X10*3/uL RBC 4.10 L (4.20-5.50) X10*6/uL Hgb 12.8 (12.0-16.0) g/dl Hct 37.2 (37.0-47.0) % MCV 90.7 (80.0-98.0) fL MCH 31.2 (27.0-33.0) pg MCHC 34.4 (31.0-35.0) g/dl RDW 13.5 (11.0-16.0) % Plt Count 209 D (160-400) X10*3/uL MPV 10.0 (9.4-12.3) fL Immature Gran % (Auto) 0.3 (0.0-0.4) % Neut % (Auto) 58.8 (45-73) % Lymph % (Auto) 24.4 (20-40) % [place] % (Auto) 9.2 (2-11) % Eos % (Auto) 6.3 H (0-4) % Baso % (Auto) 1.0 (0-2) % Lymph # (Auto) 2.3 (1.2-4.9) X10*3/uL [place] # (Auto) 0.9 (0.1-1.2) X10*3/uL Eos # (Auto) 0.6 H (0.0-0.4) X10*3/uL Baso # (Auto) 0.1 (0.0-0.2) X10*3/uL Abs Immat Gran (auto) 0.03 (0.00-0.03) X10*3/uL Absolute Neuts (auto) 5.5 (2.0-8.3) x10*3/uL Absolute Nucleated RBC 0.000 (0.0-0.012) X10*3/uL Nucleated RBC % (auto) 0.0 (0.0-0.2) /100WBC Sodium 139 (135-145) mmol/L Potassium 4.6 (3.3-5.1) mmol/L Chloride 107 (96-108) mmol/L Carbon Dioxide 19 L (22-29) mmol/L Anion Gap 18 (12-20) BUN 41 H (9-16) mg/dL Creatinine 1.26 (0.5-1.4) mg/dL Estim Creat Clear Calc 28.1 Estimated GFR 40 Random Glucose 116 H (60-115) mg/dL Calcium 10.1 D (8.4-10.2) mg/dL Total Bilirubin 0.5 (0.0-1.0) mg/dL Direct Bilirubin 0.2 (0.0-0.5) mg/dL AST 44 H (5-31) U/L ALT 26 (0-31) U/L Alkaline Phosphatase 155 H (39-117) U/L Troponin I High Sens 17.7 H D (<3.5-17.0) ng/L Total Protein 7.7 (6.5-8.0) g/dL Albumin 4.0 (3.5-5.0) g/dL Discharge Plan Discharge Prescriptions: No Action ipratropium bromide 42 mcg (0.06 %) spray,non-aerosol 2 spray intranasal TID PRN (Reason: for allergies) Qty: 135 0RF levocetirizine [Xyzal] 5 mg Tablet 5 mg PO QPM [place] Thyroid 30 mg tablet See Rx Instructions PO .COMPLEX Rx Instructions: 60 mg AM, 30mg PM orally; Creon 36,000-114,000- 180,000 unit capsule,delayed release(DR/EC) 1 cap PO TIDWM potassium chloride [Klor-Con M20] 20 mEq tablet,ER particles/crystals 20 meq PO BID aspirin 81 mg tablet,delayed release (DR/EC) 81 mg PO DAILY furosemide 20 mg tablet 20 mg PO DAILY verapamil 120 mg capsule,ext rel. pellets 24 hr 120 mg PO DAILY Print Language: Divehi
--- NOTE | 2024-07-24 15:47 | ECG_ITS ---
Test Reason : WEAKNESS Blood Pressure : */* mmHG Vent. Rate : 73 BPM Atrial Rate : 73 BPM P-R Int : 178 ms QRS Dur : 132 ms QT Int : 436 ms P-R-T Axes : 19 -55 93 degrees QTcB Int : 480 ms Normal sinus rhythm Left axis deviation Left ventricular hypertrophy with QRS widening and repolarization abnormality ( R in aVL , James product , Romhilt-Miller ) Cannot rule out Septal infarct , age undetermined Abnormal ECG When compared with ECG of 26-Mar-2022 10:17, Sinus rhythm has replaced Afib Referred By: Rashmi Reyna Electronically Signed By: Dev Esquivel
[2024-07-24 16:05] LABS: MANUAL DIFF FLAG NO
[2024-07-24 16:12] LABS: Basophils Absolute Auto 0.1 X10*3/uL (0.0-0.2); Eosinophils Absolute Auto 0.6 X10*3/uL (0.0-0.4); Eosinophils Percent Auto 6.3 % (0-4); Hematocrit 37.2 % (37.0-47.0); Hemoglobin 12.8 g/dl (12.0-16.0); Imm Gran Abs Auto 0.03 X10*3/uL (0.00-0.03); Imm Gran Pct Auto 0.3 % (0.0-0.4); Lymphocytes Absolute Auto 2.3 X10*3/uL (1.2-4.9); Lymphocytes Percent Auto 24.4 % (20-40); Mean Corpuscular HGB Conc 34.4 g/dl (31.0-35.0); Mean Corpuscular Hemoglobin 31.2 pg (27.0-33.0); Mean Corpuscular Volume 90.7 fL (80.0-98.0); Monocytes Absolute Auto 0.9 X10*3/uL (0.1-1.2); Monocytes Percent Auto 9.2 % (2-11); Neutrophils Absolute Auto 5.5 x10*3/uL (2.0-8.3); Neutrophils Percent Auto 58.8 % (45-73); Platelet Count 209 X10*3/uL (160-400); Red Cell Distribution Width 13.5 % (11.0-16.0); White Blood Count 9.3 X10*3/uL (4.8-10.8)
[2024-07-24 16:25] LABS: Alanine Aminotransferase 26 U/L (0-31); Alkaline Phosphatase 155 U/L (39-117); Anion Gap 18 (12-20); Aspartate Amino Transferase 44 U/L (5-31); Bilirubin Direct 0.2 mg/dL (0.0-0.5); Bilirubin Total 0.5 mg/dL (0.0-1.0); Blood Urea Nitrogen 41 mg/dL (9-16); Calcium 10.1 mg/dL (8.4-10.2); Carbon Dioxide 19 mmol/L (22-29); Chloride 107 mmol/L (96-108); Creatinine Clr Calc Pharmacy 28.1; Estimated Glomerular Filt Rate 40; Glucose Random 116 mg/dL (60-115); Potassium 4.6 mmol/L (3.3-5.1); Sodium 139 mmol/L (135-145); Total Protein 7.7 g/dL (6.5-8.0)
[2024-07-24 16:30] LABS: Troponin-I High Sensitivity 17.7 ng/L (<3.5-17.0)
[2024-07-24 16:33] VITALS: BP 167/74; PULSE 65; RESP 18; O2SAT 97
--- NOTE | 2024-07-24 18:02 | ED_ITS ---
HPI - General Adult General Chief complaint: General Medical Stated complaint: 178/111 blood pressure/afib Time Seen by Provider: 07/24/24 16:43 Source: patient Mode of arrival: EMS Limitations: no limitations History of Present Illness ED Provider: HPI narrative: Patient is 84 years old with history of atrial fibrillation Sjogren syndrome hypertension mitral valve regurgitation status post pacemaker comes here as prior to arrival patient was not feeling good has a heaviness in the head and blood pressure checked at home was 178/111 on arrival patient's blood pressure has improved to 167/74 pain denied any chest pain no shortness of breath 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 patient's losartan 25 mg daily Related Data Home Medications ?Medication ?Instructions ?Recorded ?Confirmed etmazx-xhprldxx-fskvxpz 1 cap PO TIDWM 10/03/21 04/12/24 36,000-114,000-180,000 unit capsule,delay rel (Creon) levocetirizine 5 mg tablet (Xyzal) 5 mg PO QPM 03/24/22 04/12/24 potassium chloride 20 mEq 20 meq PO BID 07/30/22 04/12/24 tablet,extended release(part/cryst) (Klor-Con M) thyroid (pork) 30 mg tablet See Rx Instructions PO .COMPLEX 07/30/22 04/12/24 ([place] Thyroid) verapamil 120 mg 24 hr 120 mg PO DAILY 12/03/22 04/12/24 capsule,extended release aspirin 81 mg tablet,delayed 81 mg PO DAILY 11/16/23 04/12/24 release furosemide 20 mg tablet 20 mg PO DAILY 11/16/23 04/12/24 Previous Rx's ?Medication ?Instructions ?Recorded ipratropium bromide 42 mcg (0.06 2 spray intranasal TID PRN for 08/07/23 %) nasal spray allergies #135 mL Allergies Allergy/AdvReac Type Severity Reaction Status Date / Time epinephrine [Epinephrine] AdvReac Mild VERY SHAKY Verified 07/24/24 15:48 Mchysrn-VJH-CgG Reductase AdvReac Weakness Verified 07/24/24 15:48 Inhibitor Review of Systems 2 Review of Systems: Yes all other systems are reviewed and are negative PMFSH Past Medical History Medical History Abdominal pain Vasomotor rhinitis Pacemaker History of atrial fibrillation Mitral valve regurgitation Essential tremor Kisha's thyroiditis Valvular heart disease CAD (coronary artery disease) Atelectasis Pulmonary nodules Pleural effusion Sjogren's disease Surgical History Hx of cardiac cath H/O mitral valve repair S/P TAVR (transcatheter aortic valve replacement) Social History Social History Household Members: Spouse Housing: House Do you presently have visiting nurse or other home services: No Alcohol intake: never Patient Tobacco Use Status: Never used Tobacco Smoked in Last 30 Days: No Use of substances other than those prescribed or required for medical reasons: No Advance Directives: No Advance Directives Information Provided: No service: No Current occupational status: retired Physical Exam ED Vital Signs: Vital Signs - 24 hr 07/24/24 15:43 07/24/24 16:33 Temperature 98.4 F Pulse Rate 75 65 Respiratory Rate 18 18 Blood Pressure 193/91 H 167/74 H Pulse Oximetry 100 97 Oxygen Delivery Method Room Air Room Air BMI result Body Mass Index 19.6 Appearance: Alert. Oriented X3. No acute distress. Eyes: PERRLA, No Nystagmus ENT: Pharynx normal. Oral Mucosa moist Neck: Normal inspection. Neck supple. CVS: Normal heart rate and rhythm. Pulses normal. Respiratory: No respiratory distress. Equal air entry bilateral, no wheezing/rales/rhonchi Abdomen: Soft and nontender. Bowel sounds are present, no mass palpable, no CVA tenderness Skin: Skin warm and dry. Normal skin color. Normal skin turgor. Extremities: No lower extremity edema. No calf tenderness Neuro: Oriented X 3. No motor deficit. No sensory deficit.No cerebellar signs , cranial nerves II-XII intact Medical Decision Making Medical Decision Making MDM Narrative: Patient's transient hypertension during stay in the ER blood pressure improved to 167/74 patient advised to continue her medication may increase the dose of losartan to 50 mg as needed if the blood pressure continues to be elevated patient was to follow with meteorology faculty member Differential Diagnosis Differential Diagnoses: The differential diagnosis associated with the presentation includes Lab Data MDM Lab Attestation statement: I reviewed the patient's lab results. 07/24/24 16:00 07/24/24 16:00 Labs: Lab Results 07/24/24 Range/Units 16:00 WBC 9.3 (4.8-10.8) X10*3/uL RBC 4.10 L (4.20-5.50) X10*6/uL Hgb 12.8 (12.0-16.0) g/dl Hct 37.2 (37.0-47.0) % MCV 90.7 (80.0-98.0) fL MCH 31.2 (27.0-33.0) pg MCHC 34.4 (31.0-35.0) g/dl RDW 13.5 (11.0-16.0) % Plt Count 209 D (160-400) X10*3/uL MPV 10.0 (9.4-12.3) fL Immature Gran % (Auto) 0.3 (0.0-0.4) % Neut % (Auto) 58.8 (45-73) % Lymph % (Auto) 24.4 (20-40) % [place] % (Auto) 9.2 (2-11) % Eos % (Auto) 6.3 H (0-4) % Baso % (Auto) 1.0 (0-2) % Lymph # (Auto) 2.3 (1.2-4.9) X10*3/uL [place] # (Auto) 0.9 (0.1-1.2) X10*3/uL Eos # (Auto) 0.6 H (0.0-0.4) X10*3/uL Baso # (Auto) 0.1 (0.0-0.2) X10*3/uL Abs Immat Gran (auto) 0.03 (0.00-0.03) X10*3/uL Absolute Neuts (auto) 5.5 (2.0-8.3) x10*3/uL Absolute Nucleated RBC 0.000 (0.0-0.012) X10*3/uL Nucleated RBC % (auto) 0.0 (0.0-0.2) /100WBC Sodium 139 (135-145) mmol/L Potassium 4.6 (3.3-5.1) mmol/L Chloride 107 (96-108) mmol/L Carbon Dioxide 19 L (22-29) mmol/L Anion Gap 18 (12-20) BUN 41 H (9-16) mg/dL Creatinine 1.26 (0.5-1.4) mg/dL Estim Creat Clear Calc 28.1 Estimated GFR 40 Random Glucose 116 H (60-115) mg/dL Calcium 10.1 D (8.4-10.2) mg/dL Total Bilirubin 0.5 (0.0-1.0) mg/dL Direct Bilirubin 0.2 (0.0-0.5) mg/dL AST 44 H (5-31) U/L ALT 26 (0-31) U/L Alkaline Phosphatase 155 H (39-117) U/L Troponin I High Sens 17.7 H D (<3.5-17.0) ng/L Total Protein 7.7 (6.5-8.0) g/dL Albumin 4.0 (3.5-5.0) g/dL Independent Interpretation I performed an independent interpretation of an: EKG Interpretation: Normal sinus rhythm heart rate 73 beats per minute left axis deviation LVH no acute ST-T changes no acute ischemia Discharge Plan Discharge Clinical Impression: Hypertension Patient Disposition: Home, Self-Care Instructions: Chronic Hypertension (DC) Additional Instructions: Continue medication as prescribed by your meteorology faculty member Check blood pressure before you take the medicine and before going to bed If blood pressure is elevated more than 160/90 you may increase the dose of losartan to 50 mg daily Follow up with your PCP and meteorology faculty member Prescriptions: No Action ipratropium bromide 42 mcg (0.06 %) spray,non-aerosol 2 spray intranasal TID PRN (Reason: for allergies) Qty: 135 0RF levocetirizine [Xyzal] 5 mg Tablet 5 mg PO QPM [place] Thyroid 30 mg tablet See Rx Instructions PO .COMPLEX Rx Instructions: 60 mg AM, 30mg PM orally; Creon 36,000-114,000- 180,000 unit capsule,delayed release(DR/EC) 1 cap PO TIDWM potassium chloride [Klor-Con M20] 20 mEq tablet,ER particles/crystals 20 meq PO BID aspirin 81 mg tablet,delayed release (DR/EC) 81 mg PO DAILY furosemide 20 mg tablet 20 mg PO DAILY verapamil 120 mg capsule,ext rel. pellets 24 hr 120 mg PO DAILY Interventions: ED Discharge Assessment Last Done: 07/24/24 18:06 Print Language: [place]
[2024-07-24 18:06] VITALS: BP 167/74; PULSE 65; RESP 18; TEMP 36.6; O2SAT 97
== END 2024-07-24 18:06 | disposition home or self-care (01) ==
PROVIDERS: Nurse Practitioner Family; Emergency Provider Internal Medicine; PCP Internal Medicine
DX: I10 Essential (primary) hypertension (principal); R51.9 Headache, unspecified; I48.91 Unspecified atrial fibrillation; I69.351 Hemiplegia and hemiparesis following cerebral infarction affecting right dominant side; Z95.0 Presence of cardiac pacemaker; Z79.899 Other long term (current) drug therapy; Z79.82 Long term (current) use of aspirin
CPT/HCPCS: 36415; 80048; 80076; 84484; 85025; 93005; 99283; 99284

== ENCOUNTER → 2024-07-24 15:47 | Outpatient (BNV) | payer OTHER, MEDICARE, SELFPAY | PROVIDERS: Emergency Provider Internal Medicine; PCP Internal Medicine; Visit Provider Internal Medicine Cardiovascular Disease | DX: I51.7 Cardiomegaly (principal) | CPT/HCPCS: 93010 ==